=== PATIENT | male | born 1940 | race Caucasian/White ===

== ENCOUNTER 2017-01-21 10:48 | Outpatient (CLI) | payer MEDICARE, OTHER ==
[~2017-01-21] VITALS: Ht 177.8 cm; Wt 66.9 kg
[~2017-01-21 10:48] MED LIST: CIPR500T78 PO; CYCL10TA9 PO; FINA5TAB6 PO; HYDR-2997 PO; LORA5TAB9 PO; NAPR-243 PO; OXYC-12 PO; TAMS0.4C2 PO; TMSL.4C PO; TRIA10.8 NSEACH
[2017-01-21 11:07] VITALS: BP 185/99
[2017-01-21 11:50] LABS: BASOPHILS % (AUTO) 1 % (0-10); EOSINOPHILS % (AUTO) 1 % (0-10); LYMPHOCYTES # (AUTO) 0.7 X 10^3 (1.0-4.0); LYMPHOCYTES % (AUTO) 16 % (12-44); MEAN CORPUSCULAR HEMOGLOBIN 33 PG (25-34); MEAN CORPUSCULAR HGB CONC 34 G/DL (32-36); MEAN CORPUSCULAR VOLUME 97 FL (80-99); MEAN PLATELET VOLUME 10.3 FL (7.4-10.4); MONOCYTES # (AUTO) 0.4 X 10^3 (0.0-1.0); MONOCYTES % (AUTO) 8 % (0-12); NEUTROPHILS # (AUTO) 3.3 X 10^3 (1.8-7.8); NEUTROPHILS % (AUTO) 75 % (42-75); PLATELET COUNT 153 10^3/uL (130-400); RED BLOOD COUNT 4.16 10^6/uL (4.35-5.85); RED CELL DISTRIBUTION WIDTH 12.6 % (10.0-14.5); WHITE BLOOD COUNT 4.4 10^3/uL (4.3-11.0)
== END 2017-01-21 11:44 | disposition home or self-care (01) ==
LOC: PREOP 10:48
PROVIDERS: ATTEND Urology
DX: Z01.812 Encounter for preprocedural laboratory examination (principal); N40.1 Benign prostatic hyperplasia with lower urinary tract symptoms; R33.8 Other retention of urine
CPT/HCPCS: 36415; 85025; 86850; 86900; 86901; 87081

== ENCOUNTER 2017-01-25 07:30 | Day surgery (SDC) | payer MEDICARE, OTHER ==
[~2017-01-25] VITALS: Ht 177.8 cm; Wt 66.9 kg
[2017-01-25 07:30] VITALS: BP 194/95
[2017-01-25] MEDS ORDERED: CATHETER FLUSH 10 ML SYR IV PRN (07:45)
[2017-01-25] MEDS ORDERED: cefTRIAXone 1 GM/NS 50 ML IVPB IV ONE ×2 (07:45)
[2017-01-25] MEDS ORDERED: FINA5TAB6 PO (08:19)
[2017-01-25] MEDS ORDERED: TAMS0.4C2 PO (08:21)
[2017-01-25] MEDS ORDERED: OXYC-471 PO (08:21)
[2017-01-25] MEDS ORDERED: FLUT9.9S NS (08:23)
[2017-01-25] MEDS ORDERED: METH2.5T PO (08:23)
[2017-01-25] MEDS ORDERED: FOLI0.8C PO (08:24)
[2017-01-25] MEDS ORDERED: MULT-35 PO (08:24)
--- NOTE | 2017-01-25 08:32 | Progress Note-Pre Operative ---
Pre-Operative Progress Note H&P Reviewed The H&P was reviewed, patient examined and no changes noted. Date Seen by Provider: Jan 25, 2017 Time Seen by Provider: 08:32 Date H&P Reviewed: Jan 25, 2017 Time H&P Reviewed: 08:32 Pre-Operative Diagnosis: BPH WITH URINE RETENTION JENSEN CHANCE MD Jan 25, 2017 8:32 am
[2017-01-25] MEDS: LACTATED RINGERS 1,000 ML IV PRN ×2 (08:45→10:15)
[2017-01-25] MEDS ORDERED: NS IV 1000 ML 1,000 ML IV SCH (09:00)
[2017-01-25] MEDS ORDERED: proPOfol 200 MG/20 ML (DIPRIVAN) VIAL IV ONE (09:40)
[2017-01-25] MEDS ORDERED: fentaNYL INJECTION 100 MCG/2 ML AMP ONE (09:40)
--- NOTE | 2017-01-25 11:09 | Progress Note-Post Operative ---
Post-Operative Progess Note Surgeon (s)/Reception Specialist (s) Surgeon JENSEN CHANCE MD Reception Specialist: N/A Pre-Operative Diagnosis BPH WITH URINE RETENTION Post-Operative Diagnosis SAME Procedure & Operative Findings Date of Procedure 01/25/17 Procedure Performed/Findings TURP Anesthesia Type SPINAL Estimated Blood Loss Estimated blood loss (mL): 100cc Specimens/Packing Specimens Removed PROSTATE CHIPS Packing: N/A JENSEN CHANCE MD Jan 25, 2017 11:09 am
[2017-01-25] MEDS ORDERED: ZOLPIDEM 5 MG (AMBIEN) TAB PO PRN (11:15)
[2017-01-25] MEDS ORDERED: MILK OF MAGNESIA 400 MG/5 ML 30 ML UDC PO PRN (11:15)
[2017-01-25] MEDS ORDERED: ONDANSETRON 4 MG/2 ML (SDV) Z0FRAN IVP PRN (11:30)
[2017-01-25] MEDS ORDERED: morphine INJ 10 MG/ML 1ML (SYR OR VIAL) IVP PRN (11:30)
[2017-01-25 12:20] VITALS: BP 180/87
[2017-01-25] MEDS ORDERED: VITA400C21 PO (14:11)
[2017-01-25] MEDS ORDERED: CYAN500T2 PO (14:11)
[2017-01-25] MEDS ORDERED: GINK60TA2 PO (14:11)
[2017-01-25] MEDS ORDERED: ASCO-262 PO (14:11)
[2017-01-25] MEDS ORDERED: CARB1TAB6 PO (14:11)
[2017-01-25] MEDS ORDERED: SAW160CA3 PO (14:11)
[2017-01-25] MEDS ORDERED: CHOL10007 PO (14:11)
[2017-01-25] MEDS ORDERED: MAGN250T2 PO (14:11)
[2017-01-25] MEDS ORDERED: OMEG-160 PO (14:11)
[2017-01-25] MEDS ORDERED: INFLUENZA TRIvalent 2017-2018 0.5 ML/45 MCG SYR IM ONE (14:45)
[2017-01-25] MEDS: LACTATED RINGERS 1,000 ML IV SCH ×4 (15:06→23:47)
[2017-01-25 15:50] VITALS: BP 113/57
[2017-01-25] MEDS: BELLADONNA ALK/OPIUM (B & O) 30 MG SUPP PR PRN (18:49)
[2017-01-25] MEDS: DOCUSATE SODIUM 100 MG (COLACE) CAP PO SCH (20:12)
[2017-01-25 20:21] VITALS: BP 126/70
[2017-01-25] MEDS: HYDROcodone/APAP 10 MG/325 MG (LORTAB) TAB PO PRN (21:20)
[2017-01-26 00:08] VITALS: BP 135/63
[2017-01-26] MEDS: BELLADONNA ALK/OPIUM (B & O) 30 MG SUPP PR PRN (00:44)
[2017-01-26 04:22] VITALS: BP 116/56
--- NOTE | 2017-01-26 07:29 | Progress Note-Urology ---
Progress Note-Urology Progress Notes/Assess & Plan Progress/Assessment & Plan AFEBRILE, VSS, DOING VERY WELL, URINE CLEAR. PLAN PER ORDERS Final Diagnosis BPH WITH RETENTION JENSEN CHANCE MD Jan 26, 2017 7:29 am
[2017-01-26 07:35] VITALS: BP 155/67
[2017-01-26] MEDS: HYDROcodone/APAP 10 MG/325 MG (LORTAB) TAB PO PRN (08:55)
[2017-01-26] MEDS: DOCUSATE SODIUM 100 MG (COLACE) CAP PO SCH (08:55)
[2017-01-26] MEDS ORDERED: LEVOFLOXACIN 500 MG/100 ML IV 100 ML IV NR (11:15)
[2017-01-26] MEDS: LACTATED RINGERS 1,000 ML IV SCH ×2 (11:28)
--- NOTE | 2017-01-26 11:57 | OPERATIVE REPORT ---
DATE OF SERVICE: 01/25/2017 [employer]1 PREOPERATIVE DIAGNOSIS: Benign prostatic hypertrophy with prostatism and retention. POSTOPERATIVE DIAGNOSIS: Benign prostatic hypertrophy with prostatism and retention. OPERATION PERFORMED: Transurethral resection of the prostate. SURGEON: MD Christal ANESTHESIA: Spinal. COMPLICATIONS: None. PROCEDURE IN DETAIL: Under satisfactory spinal anesthesia, the patient in the lithotomy position, genitalia were prepped and draped in the usual sterile fashion. Urethra was dilated with [place] sounds to #30 Guinean to accommodate a 27-Guine[place] Kompyte. resectoscope. I resected first the median lobe-bar and was levelled. Then, I resected the right lateral lobe from 12 to 6 o'clock position followed by the left one similarly. Bleeders were cauterized as the resection was proceeding and capsule was visualized in many points. The resection was adequate and hemostasis satisfactory. Prostatic chips were evacuated and cystoscopy confirmed intact ureteric orifices, veru and sphincter with good reflex. Resectoscope was then removed and a 22-Guinean 3 ways 30 mL Balloon catheter was inserted. The balloon inflated to 30 mL, connected to continuous bladder irrigation, the return of which was clear. Estimated blood loss is 100 mL, none of which was replaced. The patient tolerated the procedure and anesthesia well and was sent to the recovery room in stable condition. Job ID: [id number] DocumentID: [id number] Dictated Date: 01/25/2017 11:33:36 Director Ambulatory Date: 01/26/2017 03:02:31 Dictated By: JENSEN CHANCE MD
--- NOTE | 2017-01-26 14:04 | Anesthesia-Regional Post-Op ---
Regional Patient Condition Mental Status: Alert, Oriented x3 Circulation: Same as Pre-Op Headache: Absent Sensation: Full Recovery Motor Block: Absent Post Op Complications Complications None Follow Up Care/Instructions Patient Instructions None needed. Anesthesia/Patient Condition Patient is doing well, no complaints, stable vital signs, no apparent adverse anesthesia problems. No complications reported per nursing. CRISTOBAL RUIZ CRNA Jan 26, 2017 14:04
[2017-01-26] MEDS ORDERED: CIPR-225 PO (15:00)
[2017-01-26 15:57] VITALS: BP 155/67
== END 2017-01-26 16:00 | disposition home or self-care (01) ==
LOC: SDC 07:30 → 4TH 12:23 → SDC 01-26 16:00
PROVIDERS: ATTEND Urology
DX: N40.1 Benign prostatic hyperplasia with lower urinary tract symptoms; R33.8 Other retention of urine; Z79.899 Other long term (current) drug therapy; M06.9 Rheumatoid arthritis, unspecified
CPT/HCPCS: 86850; 86900; 86901; 94664

== ENCOUNTER 2017-02-03 09:05 | Inpatient (IN) | payer MEDICARE, OTHER ==
[~2017-02-03] VITALS: Ht 175.3 cm; Wt 66.7 kg
[~2017-02-03 09:05] MED LIST changes: +ASCO-262 PO; +CARB1TAB6 PO; +CHOL10007 PO; +CIPR-225 PO; +CIPR500T4 PO; +CYAN500T2 PO; +FLUT9.9S NS; +FOLI0.8C PO; +GINK60TA2 PO; +MAGN250T2 PO; +METH2.5T PO; +MULT-35 PO; +OMEG-160 PO; +OXYC-471 PO; +SAW160CA3 PO; +VITA400C21 PO
[2017-02-03] MEDS ORDERED: ASPI-999 PO (09:13)
[2017-02-03] MEDS ORDERED: ATOR40TA PO (09:13)
--- NOTE | 2017-02-03 11:46 | Occupational Therapy Eval ---
OT Evaluation-General/PLF Medical Diagnosis Admission Date 02-03-17 Medical Diagnosis: R cerebellar CVA Onset Date: Jan 31, 2017 Therapy Diagnosis Therapy Diagnosis: decr self care, decr funct mobility, decr act delmy, decr balance Height/Weight Height (Feet): 5 Height (Inches): 9.00 Weight (Pounds): 141 Weight (Ounces): 14.4 Referral Physician: Jaden Referral Reason: Evaluation/Treatment Medical History Pertinent Medical History: Arthritis, COPD, CVA, GERD, Parkinson's Additional Medical History TURP 01-14-17, L inguinal hernia. R cataract surgery, chronic constipation, chronic back pain, depression Current History Came in to acute care through ED with dizziness, had n/v. Identified with acute CVA affecting R cerebellum. Reviewed History: Yes Social History Home: Single Level Current Living Status: Spouse Entry Into Home: Stairs With Railing Steps Into Home: 3 ADL-Prior Level of Function ADL PLOF Comments Pt reported that he has been able to manage his basic self care needs except that buttoning shirts is hard and takes a long time and sometimes he has trouble getting shirts over his head. He said that the tremors in his hands do not affect his ability to feed himself. 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 Pain reported 0/10. Appearance Alert, cooperative Mental Status/Objective Attachments: Saline Lock, Telemetry Current Glasses/Contacts: Yes (readers) Hearing Aids: No Dentures/Partials: Yes (partial) Hand Dominance: Right Upper Extremity ROM grossly WFL bilat. He reported R biceps has "fallen" and is observed more distal on upper arm. Upper Extremity Strength Grossly 4/5 bilat ADL-Treatment ADL-Current Pt reported that he needs help holding up his hospital gown when he uses urinal. Pt agreeable to shower after lunch. Functional [place] Measure 0=Not Assessed/NA 4=Minimal Assistance 1=Total Assistance 5=Supervision or Setup 2=Maximal Assistance 6=Modified [place] 3=Moderate Assistance 7=Complete IndependenceIRFPAI Quality Coding Scale 6 Independent with activity with or without an assistive device 5 Patient requires set up or clean up by helper. Patient completes activity by themselves 4 Supervision or touching assist (CGA). [place] provide cues , steadying assist 3 The helper provides less than half the effort to complete the activity 2 The helper provides more than half the effort to complete the activity 1 Dependent. The helper does all the effort to complete an activity 7 Patient refused to complete or attempt activity 9 The patient did not perform the activity before the current illness or injury 88 Not attempted due to Medical conditions or safety concerns Transfers (B, C, W/C) (FIM): 4 (CGA, FWW. Unsteadiness observed when backing up to get into w/c.) Education OT Patient Education: Purpose of tx/functional activities, Rehab process Teaching Recipient: Patient Teaching Methods: Discussion Response to Teaching: Verbalize Understanding OT Short Term Goals Short Term Goals Time Frame: Feb 10, 2017 Toilet/Commode Transfer(FIM): 5 Additional Short Term Goals: 2-Verbalize Understanding, 3-ImproveStrength/Sheila 1=Demonstrate adherence to instructed precautions during ADL tasks. 2=Patient will verbalize/demonstrate understanding of assistive devices/ modifications for ADL. 3=Patient will improve strength/tolerance for activity to enable patient to perform ADL's. OT Temperature Logging Operator Goals Retirement Goals Time Frame: Feb 25, 2017 Eating (FIM): 6 Eating (QC): 6 Groomin Oral Hygiene (QC): 6 Bathing(FIM): 6 Shower/Bathe Self (QC): 6 Upper Body Dressing(FIM): 6 Upper Body Dressing (QC): 6 Lower Body Dressing(FIM): 6 Lower Body Dressing (QC): 6 On/Off Footwear (QC): 6 Toileting(FIM): 6 Toileting Hygiene (QC): 6 Toilet/Commode Transfer(FIM): 6 Toilet/Commode Transfer (QC): 6 Tub Transfer(FIM): 6 Shower Transfer(FIM): 6 Additional Goals: 2-Verbalize Understanding, 3-ImproveStrength/Sheila 1=Demonstrate adherence to instructed precautions during ADL tasks. 2=Patient will verbalize/demonstrate understanding of assistive devices/ modifications for ADL. 3=Patient will improve strength/tolerance for activity to enable patient to perform ADL's. OT Education/Plan Problem List/Assessment Assessment: Decreased Activ Tolerance, Decreased UE Strength, Dependent Transfers, Impaired Funct Balance, Impaired Self-Care Skills Pt would benefit from skilled OT to increase his independence in basic self care to allow him to safely return home to live with his and to decrease caregiver burden 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 Discharge Recommendations Plan/Recommendations: Continue POC Target Placement home Treatment Plan/Plan of Care Treatment,Training & Education: Yes Patient would benefit from OT for education, treatment and training to promote independence in ADL's, mobility, safety and/or upper extremity function for ADL' s. Plan of Care: ADL Retraining, Functional Mobility, Group Exercise/Act as Ind ( education, exercise, socialization, activity tolerance, funct activities), UE Funct Exercise/Act, UE Neuromus Re-Ed/Coord Treatment Duration: Feb 25, 2017 Frequency: At least 5 of 7 days/Wk (IRF) Estimated Hrs Per Day: 1.5 hours per day Agreement: Yes Rehab Potential: Good Time/GCodes Start Time: 11:00 Stop Time: 11:30 Total Time Billed (hr/min): 30 Billed Treatment Time visit, 30 minutes evaluation moderate intensity SHIVAM NAVA OT Feb 03, 2017 11:46
--- NOTE | 2017-02-03 12:09 | Physical Therapy Evaluation ---
PT Evaluation-General Medical Diagnosis Admission Date Medical Diagnosis: R cerebellar CVA Onset Date: Jan 31, 2017 Therapy Diagnosis Therapy Diagnosis: generalized weakness and mobility impairments Height/Weight Height (Feet): 5 Height (Inches): 9.00 Weight (Pounds): 141 Weight (Ounces): 14.4 Precautions Precautions/Isolations: Fall Prevention, Standard Precautions Referral Physician: Jaden Reason for Referral: Evaluation/Treatment Medical History Pertinent Medical History: Arthritis, COPD, CVA, GERD, Parkinson's Additional Medical History Parkinson's, UTI, RA, Depression, Gastroesophageal Reflux, Chronic Constipation , Chronic back pain, Surgeries: Eye Surgery, Tonsillectomy, Transurethral Resection, TURP 01/14. Current History Pt presented to the ER 02/02 with CC of nausea, vomiting, and dizziness, found to have acute cerebellar infarct. Reviewed History: Yes Social History Home: Single Level Current Living Status: Spouse Entry Into Home: Stairs With Railing PT Steps Into Home: 3 Prior/Core FIM Prior Level of Function Functional [place] Measure 0=Not Assessed/NA 4=Minimal Assistance 1=Total Assistance 5=Supervision or Setup 2=Maximal Assistance 6=Modified [place] 3=Moderate Assistance 7=Complete [place] Bed Mobility: 7 Transfers (B,C,W/C) (FIM): 7 Gait: 7 Locomotion: 7 Patient reports he used no assistive device prior to admission and was driving. PT Evaluation-Current Subjective Pt is sitting in wheelchair (just finished with OT) and agreeable to PT. Pt reports no pain. Pt was sitting at EOB with nurse call, phone, tray, all needs met post tx. Pain Numeric Pain Scale: 0-No Pain Location: No Pain Reported Pt/Family Goals to return home with independence with mobility Objective Patient Orientation: Person, Place, Situation telemetry ROM/Strength ROM Lower Extremities WNL Strenght Lower Extremities right ankle df 4+/5, knee flexion 3+/5, knee extension 4/5, hip flexion 4-/5 left ankle df 4+/5, knee flexion 3+/5, knee extension 4/5, hip flexion 4-/5 Integumentary/Posture Integumentary refer to nursing note Bowel Incontinence: No Bladder Incontinence: No Neuromuscular (Tone, Coordination, Reflexes) noted essential tremors bilateral UE's R>L, parkinson's shuffle gait sequence Sensory Vision: Functional (patient reports having double vision yesterday, no issues with vision today) Hearing: Functional Hand Dominance: Right Sensation Right Upper Extremit: Intact Sensation Left Upper Extremity: Intact Sensation Right Lower Extremit: Intact Sensation Left Lower Extremity: Intact Transfers Functional [place] Measure 0=Not Assessed/NA 4=Minimal Assistance 1=Total Assistance 5=Supervision or Setup 2=Maximal Assistance 6=Modified [place] 3=Moderate Assistance 7=Complete IndependenceIRFPAI Quality Coding Scale 6 Independent with activity with or without an assistive device 5 Patient requires set up or clean up by helper. Patient completes activity by themselves 4 Supervision or touching assist (CGA). [place] provide cues , steadying assist 3 The helper provides less than half the effort to complete the activity 2 The helper provides more than half the effort to complete the activity 1 Dependent. The helper does all the effort to complete an activity 7 Patient refused to complete or attempt activity 9 The patient did not perform the activity before the current illness or injury 88 Not attempted due to Medical conditions or safety concerns Transfers (B, C, W/C) (FIM): 5 Scootin Rollin Roll Left to Right (QC): 4 Supine to/from Sit: 5 Sit to/from Stand: 5 Sit to Lying (QC): 4 Lying to Sitting/Side of Bed(Q: 4 Sit to Stand (QC): 4 Chair/Imp-nd-Sdmnn Xfer(QC): 4 Pt was able to completes all bed mobility and transfers with supervision for safety. Gait Does the Patient Walk?: Yes Mode of Locomotion: Walk Anticipated Mode of Locomotion: Walk Gait (FIM): 2 Distance (FIM): 7=954-63 ft Walk 10 feet (QC): 4 Walk 50 ft with 2 Turns(QC): 4 Walk 150 ft (QC): 88 Walking 10ft/uneven surface-QC: 4 Distance: 125'x2 Gait Level of Assist: 4 Gait Persons Needed: 1 Gait Assistive Device: FWW Comments/Gait Description Pt ambulates 125'x2 with FWW and CGA for safety. Patient has shuffling with gait , does not have difficulty initiating movement or corners at this time. Wheelchair Training Does the Pt Use a Wheelchair?: No Stairs Stairs (FIM): 2 #of Steps: 4 Level of Assist: 4 1 Step (curb) (QC): 4 4 Steps (QC): 4 12 Steps (QC): 88 Pt is able to complete 4 stairs with step to pattern and 2 handrails. Pt requires CGA and verbal cues for safety. Balance Sitting Static: Good Sitting Dynamic: Fair Standing Static: Fair Standing Dynamic: Poor Picking up an Object (QC): 88 Assessment/Needs Pt has impairments with gait, endurance, balance, activity tolerance, and strength. Pt reports feeling light-headed after walking 125', which subsided with rest break. Rehab Potential: Fair PT Short Term Goals Short Term Goals Time Frame: Feb 10, 2017 Transfers (B,C,W/C) (FIM): 6 Gait (FIM): 4 Gait Distance Comment: 200' Gait Level of Assist: 4 Gait Assistive Device: FWW PT Residential Goals Furnace Repairer Goals PT Residential Goals Time Frame: Feb 24, 2017 Transfers (B,C,W/C) (FIM): 7 Sit to Lying (QC): 6 Lying-Sitting on Side/Bed(QC): 6 Sit to Stand (QC): 6 Rollin Roll Left to Right (QC): 6 Chair/Uwg-jd-Dybvf Xfer(QC): 6 Car Transfer (QC): 4 (SBA) Does the Patient Walk: No and Walking Goal IS indicated Gait (FIM): 6 Gait distance (FIM): 3=150 ft Walk 10 feet (QC): 6 Walk 10ft-Uneven Surface(QC): 6 Walk 50ft with 2 Turns (QC): 6 Walk 150 ft (QC): 6 Gait Level of Assist: 6 Gait Assistive Device: FWW Stairs (FIM): 5 # of Steps: 12 1 Step (curb) (QC): 4 4 Steps (QC): 4 12 Steps (QC): 4 Stairs Level Of Assist: 5 Picking up an Object (QC): 4 PT Plan Problem List Problem List: Activity Tolerance, Functional Strength, Safety, Balance, Gait, Transfer, Bed Mobility, ROM Treatment/Plan Treatment Plan: Continue Plan of Care Treatment Plan: Bed Mobility, Education, Functional Activity Sheila, Functional Strength, Group Therapy, Gait, Safety, Therapeutic Exercise, Transfers Treatment Duration: Feb 24, 2017 Frequency: At least 5 of 7 days/Wk (IRF) Estimated Hrs Per Day: 1.5 hours per day Patient and/or Family Agrees t: Yes Safety Risks/Education Patient Education: Gait Training, Transfer Techniques, Steps, Reviewed Precautions, Correct Positioning, Safety Issues Teaching Recipient: Patient Teaching Methods: Demonstration, Discussion Response to Teaching: Verbalize Understanding, Reinforcement Needed Discharge Recommendations Plan Pt will complete gait training, transfers and bed mobility, balance and endurance training, strengthening and therapeutic exercises, and receive safety education. Therapy D/C Recommendations: Home w/ Family Support Time/GCodes Time In: 1130 Time Out: 1201 Total Billed Treatment Time: 31 Total Billed Treatment 1 visit GER 16 GT 15 YNES BINGHAM PT Feb 03, 2017 12:09
[2017-02-03] MEDS ORDERED: MECLIZINE 25 MG (ANTIVERT) TAB PO PRN (14:00)
[2017-02-03] MEDS ORDERED: ONDANSETRON 4 MG/2 ML (SDV) Z0FRAN IVP PRN (14:00)
[2017-02-03] MEDS ORDERED: PROMETHAZINE INJ 25 MG/ML (PHENERGAN) AMP IVP PRN (14:00)
[2017-02-03] MEDS ORDERED: CATHETER FLUSH 10 ML SYR IV PRN ×2 (14:00→15:00)
[2017-02-03] MEDS ORDERED: oxyCODONE/APAP 5/325MG (PERCOCET 5) TABLET PO PRN (14:00)
[2017-02-03] MEDS ORDERED: cefTRIAXone INJECTION 1,000 MG in NS (IVPB) 50 ML IV SCH (14:00)
[2017-02-03] MEDS ORDERED: ACETAMINOPHEN 500 MG TAB (TYLENOL) PO PRN (14:00)
--- NOTE | 2017-02-03 14:24 | Occupational Ther Daily Note ---
OT Current Status-Daily Note Subjective Pt seen in room, up in bed, agreeable to OT. No pain mentioned. Appearance Alert, cooperative, flat affect, delayed movements Mental Status/Objective Functional [place] Measure 0=Not Assessed/NA 4=Minimal Assistance 1=Total Assistance 5=Supervision or Setup 2=Maximal Assistance 6=Modified [place] 3=Moderate Assistance 7=Complete [place] ADL-Treatment Functional [place] Measure 0=Not Assessed/NA 4=Minimal Assistance 1=Total Assistance 5=Supervision or Setup 2=Maximal Assistance 6=Modified [place] 3=Moderate Assistance 7=Complete IndependenceIRFPAI Quality Coding Scale 6 Independent with activity with or without an assistive device 5 Patient requires set up or clean up by helper. Patient completes activity by themselves 4 Supervision or touching assist (CGA). [place] provide cues , steadying assist 3 The helper provides less than half the effort to complete the activity 2 The helper provides more than half the effort to complete the activity 1 Dependent. The helper does all the effort to complete an activity 7 Patient refused to complete or attempt activity 9 The patient did not perform the activity before the current illness or injury 88 Not attempted due to Medical conditions or safety concerns Eating (FIM): 6 (Per pt report, opens packages and cuts food. Has partial and doesn't eat some foods without partial in place.) Eating (QC): 6 Grooming (FIM): 5 (SBA standing at sink to brush teeth and comb hair, FWW for balance. pt reported that he has some trouble moving toothbrush but none observed) Oral Hygiene (QC): 4 (SBA) Bathing (FIM): 5 (Washed and dried all parts except back with setup, SBA when standing. Shower bench, grab bars, hand held shower) Shower/Bathe Self (QC): 4 (SBA) Upper Body (FIM): 5 (pt educ modified technique for donning shirt. SBA, setup. Able to manage buttons but slowly) Upper Body Dressing (QC): 4 (SBA) Lower Body Dressing (FIM): 5 (SBA, setup to don slippers, underwear and sweat pants. pt educ modified technique. FWW for balance) Lower Body Dressing (QC): 4 (SBA) On/Off Footwear (QC): 5 (setup) Toileting (FIM): 5 (SBA for standing to manage clothing. Able to manage hygiene. Tall toilet, grab bar, FWWW) Toileting Hygiene (QC): 4 (SBA) Transfers (B, C, W/C) (FIM): 4 (CGA, FWW. pt educ for hand placement) Toilet/Commode Transfer (FIM): 5 (SBA, getting on/off tall toilet, grab bars, FWW. pt educ for hand placement) Toilet Transfer (QC): 4 (SBA) Shower Transfer(FIM): 5 (SBA getting in and out of shower, with shower bench, grab bar, FWW) All ADLs took longer than usual. Pt movements slow and deliberate. Pt left up in recliner, all needs met. Education OT Patient Education: Modified ADL techniques, Progress toward Goal/Update tx plan, Purpose of tx/functional activities, Safety issues, Transfer techniques Teaching Recipient: Patient Teaching Methods: Demonstration, Discussion Response to Teaching: Verbalize Understanding, Return Demonstration, Reinforcement Needed OT Short Term Goals Short Term Goals Time Frame: Feb 10, 2017 Transfers (B,C,W/C) (FIM): 6 Toilet/Commode Transfer(FIM): 5 Additional Short Term Goals: 2-Verbalize Understanding, 3-ImproveStrength/Sheila 1=Demonstrate adherence to instructed precautions during ADL tasks. 2=Patient will verbalize/demonstrate understanding of assistive devices/ modifications for ADL. 3=Patient will improve strength/tolerance for activity to enable patient to perform ADL's. OT Enterprise Integration Developer Goals Mcc Goals Time Frame: Feb 25, 2017 Eating (FIM): 6 Eating (QC): 6 Groomin Oral Hygiene (QC): 6 Bathing(FIM): 6 Shower/Bathe Self (QC): 6 Upper Body Dressing(FIM): 6 Upper Body Dressing (QC): 6 Lower Body Dressing(FIM): 6 Lower Body Dressing (QC): 6 On/Off Footwear (QC): 6 Toileting(FIM): 6 Toileting Hygiene (QC): 6 Toilet/Commode Transfer(FIM): 6 Toilet/Commode Transfer (QC): 6 Tub Transfer(FIM): 6 Shower Transfer(FIM): 6 Additional Goals: 2-Verbalize Understanding, 3-ImproveStrength/Sheila 1=Demonstrate adherence to instructed precautions during ADL tasks. 2=Patient will verbalize/demonstrate understanding of assistive devices/ modifications for ADL. 3=Patient will improve strength/tolerance for activity to enable patient to perform ADL's. 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 Plan of Care: ADL Retraining, Functional Mobility, Group Exercise/Act as Ind ( education, exercise, socialization, activity tolerance, funct activities), UE Funct Exercise/Act, UE Neuromus Re-Ed/Coord Treatment Duration: Feb 25, 2017 Frequency: At least 5 of 7 days/Wk (IRF) Estimated Hrs Per Day: 1.5 hours per day Agreement: Yes Rehab Potential: Fair Time/GCodes Start Time: 13:00 Stop Time: 14:05 Total Time Billed (hr/min): 65 Billed Treatment Time visit, 65 minutes ADL SHIVAM NAVA OT Feb 03, 2017 14:24
--- NOTE | 2017-02-03 15:33 | Physical Therapy Daily Note ---
PT Daily Note-Current Subjective Pt is sitting in chair prior to tx and agreeable to PT. Pt reports no pain. Pt is on toilet post tx, instructed to use red cord to call for help when finished and patient is agreeable. Pain Numeric Pain Scale: 0-No Pain Location: No Pain Reported Mental Status Patient Orientation: Normal For Age Transfers Functional [place] Measure 0=Not Assessed/NA 4=Minimal Assistance 1=Total Assistance 5=Supervision or Setup 2=Maximal Assistance 6=Modified [place] 3=Moderate Assistance 7=Complete IndependenceIRFPAI Quality Coding Scale 6 Independent with activity with or without an assistive device 5 Patient requires set up or clean up by helper. Patient completes activity by themselves 4 Supervision or touching assist (CGA). [place] provide cues , steadying assist 3 The helper provides less than half the effort to complete the activity 2 The helper provides more than half the effort to complete the activity 1 Dependent. The helper does all the effort to complete an activity 7 Patient refused to complete or attempt activity 9 The patient did not perform the activity before the current illness or injury 88 Not attempted due to Medical conditions or safety concerns Transfers (B, C, W/C) (FIM): 5 Sit to/from Stand: 5 Gait Training Does the Patient Walk?: Yes Gait (FIM): 4 Distance: 150'x2 Gait Level of Assist: 4 Gait Persons Needed: 1 Gait Assistive Device: FWW Pt ambulates with FWW and CGA for safety. Pt has difficulty initiating movement and shuffling gait. Stair Training Stair Training: Handrails/: 2 handrails #of Steps: 8 Stairs: Pattern: Step to Level of Assist: 4 Pt completes 8 steps with 2 handrails, step to pattern and close CGA for safety. Exercises Seated Therapy Exercises: Ankle pumps, Long arc quads, Hip flexion, Hip abd/add , Glut set Seated Reps: 15 NuStep Minutes: 15 NuStep Workload: 6 Treatments Pt completes LE seated exercises and tx on Nustep to increase functional strengthening and endurance. Pt completes dynamic standing balance activities ( unilateral stance, stepping over obstacles, reaching for objects, navigating obstacles on floor, gait training with emphasis on turning) to increase balance and gait. Assessment Current Status: Good Progress Pt ambulation distance has increased. Pt is highly motivated to improve balance. PT Short Term Goals Short Term Goals Time Frame: Feb 10, 2017 Transfers (B,C,W/C) (FIM): 6 Gait (FIM): 4 Gait Distance Comment: 200' Gait Level of Assist: 4 Gait Assistive Device: FWW PT Road Design Engineer Goals Chcf Goals PT Chcf Goals Time Frame: Feb 24, 2017 Transfers (B,C,W/C) (FIM): 7 Sit to Lying (QC): 6 Lying-Sitting on Side/Bed(QC): 6 Sit to Stand (QC): 6 Rollin Roll Left to Right (QC): 6 Chair/Tyo-ro-Ywkpw Xfer(QC): 6 Car Transfer (QC): 4 (SBA) Does the Patient Walk: No and Walking Goal IS indicated Gait (FIM): 6 Gait distance (FIM): 3=150 ft Walk 10 feet (QC): 6 Walk 10ft-Uneven Surface(QC): 6 Walk 50ft with 2 Turns (QC): 6 Walk 150 ft (QC): 6 Gait Level of Assist: 6 Gait Assistive Device: FWW Stairs (FIM): 5 # of Steps: 12 1 Step (curb) (QC): 4 4 Steps (QC): 4 12 Steps (QC): 4 Stairs Level Of Assist: 5 Picking up an Object (QC): 4 PT Plan Problem List Problem List: Activity Tolerance, Functional Strength, Safety, Balance, Gait, Transfer, Bed Mobility, ROM Treatment/Plan Treatment Plan: Continue Plan of Care Treatment Plan: Bed Mobility, Education, Functional Activity Sheila, Functional Strength, Group Therapy, Gait, Safety, Therapeutic Exercise, Transfers Treatment Duration: Feb 24, 2017 Frequency: At least 5 of 7 days/Wk (IRF) Estimated Hrs Per Day: 1.5 hours per day Patient and/or Family Agrees t: Yes Safety Risks/Education Patient Education: Gait Training, Transfer Techniques, Steps, Reviewed Precautions, Correct Positioning, Safety Issues Teaching Recipient: Patient Teaching Methods: Demonstration, Discussion Response to Teaching: Verbalize Understanding, Reinforcement Needed Time/GCodes Time In: 1431 Time Out: 1530 Total Billed Treatment Time: 59 Total Billed Treatment 1 visit 15 EX 15 GT 29 NM BHUMI MACIAS PT Feb 03, 2017 15:33
[2017-02-03 15:40] VITALS: BP 176/88
[2017-02-03] MEDS ORDERED: INFLUENZA TRIvalent 2017-2018 0.5 ML/45 MCG SYR IM ONE (15:45)
[2017-02-03] MEDS: ENOXAPARIN 40 MG/0.4 ML (LOVENOX) SYR SC SCH (16:02)
[2017-02-03] MEDS: FOLIC ACID 1 MG TAB PO SCH (17:42)
[2017-02-03 18:51] VITALS: BP 167/87
--- NOTE | 2017-02-03 19:24 | History & Physicial ---
History of Present Illness History of Present Illness Reason for visit/HPI patient had a TURP on . Patient doing okay after that. Next Tuesday patient had a stroke. Patient feels woozy. According to patient has Parkinson disease. Patient shuffles when he walks and movement with his hands and cogwheel motion of this elbow and a frozen face. Patient states his balance is off Date of Admission Feb 03, 2017 at 11:35 Time Seen by Provider: 19:20 I consulted on this patient on 02/03/17 19:19 Attending Physician Yordan Stanley MD Admitting Physician Felix Dinero DO Consult Allergies and Home Medications Allergies Coded Allergies: No Known Drug Allergies (Unverified , 01/21/17) Home Medications Ascorbate Calcium 500 Mg Tablet, 500 MG PO DAILY, (Reported) Aspirin 81 Mg Tab.chew, 81 MG PO DAILY, #30 Prescribed by: YEN GUERIN on 02/03/17 0913 Atorvastatin Calcium 40 Mg Tablet, 40 MG PO HS, #30 Prescribed by: YEN GUERIN on 02/03/17 0913 Carbidopa/Levodopa 1 Each Tablet, 1 TAB PO TID, (Reported) HAS NOT YET STARTED Cholecalciferol (Vitamin D3) 1,000 Unit Capsule, 1,000 UNIT PO DAILY, (Reported) Cyanocobalamin (Vitamin B-12) 500 Mcg Tablet, 500 MCG PO DAILY, (Reported) Fluticasone Propionate 9.9 Ml [place].susp, 1 SPRAY NS DAILY, (Reported) Folic Acid 0.8 Mg Capsule, 1.6 MG PO DAILY, (Reported) TAKES 2 (0.8 MG) CAPSULES Ginkgo Biloba 60 Mg Tablet, 60 MG PO DAILY, (Reported) Magnesium 250 Mg Tablet, 250 MG PO BID, (Reported) Methotrexate Sodium 2.5 Mg Tablet, 7.5 MG PO Mo, (Reported) Multivitamin 1 Each Tablet, 1 TAB PO DAILY, (Reported) Crystal-3/Dha/Epa/Fish Oil 1 Each Capsule, 1,000 MG PO BID, (Reported) Oxycodone HCl/Acetaminophen 1 Each Tablet, 1 TAB PO PRN PRN for PAIN-MODERATE, ( Reported) Saw [place] 160 Mg Capsule, 160 MG PO BID, (Reported) Vitamin E 400 Unit Capsule, 400 UNIT PO DAILY, (Reported) Past Hnyzqxz-Iqodzv-Mwbkge Hx Patient Social History Marrital Status: Alcohol Use: Denies Use Recreational Drug Use: No Smoking Status: Never a Smoker Physical Abuse Screen: No Sexual Abuse: No Recent Foreign Travel: No Contact w/other who traveled: No Recent Hopitalizations: No Recent Infectious Disease Expo: No Immunizations Up To Date Date of Influenza Vaccine: Feb 01, 2017 Seasonal Allergies Seasonal Allergies: Yes Surgeries Yes (RIGHT CATARACTS, LT INGUINAL HERNIA, TURP) Eye Surgery, Tonsillectomy, Transurethral Resection Respiratory No Cardiovascular Yes Hypertension Neurological Yes (SYMPTOMS OF PARKINSON'S-tremors to right hand) Parkinson's Disease Reproductive System Hx Reproductive Disorders: No Sexually Transmitted Disease: No HIV/AIDS: No Genitourinary Yes (TURP on 01/25/17 - Dr. Siegel) Prostate Problems, Bladder Infection Gastrointestinal Yes Gastroesophageal Reflux, Chronic Constipation Musculoskeletal Yes Arthritis, Rheumatoid Arthritis, Chronic Back Pain Endocrine History of Endocrine Disorders: No HEENT History of HEENT Disorders: Yes HEENT Disorders: Cataract Loss of Vision: Bilateral Hearing Impairment: Denies Cancer No Psychosocial History of Psychiatric Problem: Yes (per ) Behavioral Health Disorders: Depression Integumentary History of Skin or Integumenta: Yes (HX OF "CONCRETE POISON" ON HANDS) Blood Transfusions History of Blood Disorders: No Adverse Reaction to a Blood Tr: No Family Medical History Significant Family History: No Pertinent Family Hx Family Hx: Arthritis 19 FATHER 19 MOTHER Completed stroke 19 FATHER G8 BROTHER FH: throat cancer 19 FATHER FHx: heart disease G8 BROTHER Hypertension G8 BROTHER Thyroid disease 19 MOTHER Tuberculosis paternal grandfather Constitutional: weakness EENTM: no symptoms reported Respiratory: no symptoms reported Cardiovascular: no symptoms reported Gastrointestinal: no symptoms reported Genitourinary: other (recently had TURP) Physical Exam Vital Signs Vital Sign - Last 12Hours 02/03/17 02/03/17 02/03/17 15:17 15:40 18:51 Temp 99.5 Pulse 74 Resp 16 B/P (MAP) 176/88 Pulse Ox 98 O2 Delivery Room Air Capillary Refill : General Appearance: No Apparent Distress, Thin Eyes: Bilateral Eye Normal Inspection HEENT: Normal ENT Inspection Neck: Normal Inspection Respiratory: Chest Non Tender, Lungs Clear, Normal Breath Sounds, No Accessory Muscle Use, No Respiratory Distress Cardiovascular: Regular Rate, Rhythm, No Murmur Assessment/Plan Assessment and Plan CVA. Parkinson disease. Hypertension. Problems: Clinical Quality Measures DVT/VTE Risk/Contraindication: Risk Factor Score Per Nursin RFS Level Per Nursing on Admit: 4+=Very High RODO ROCHA DO Feb 03, 2017 19:24
--- NOTE | 2017-02-03 19:50 | PM&R Post Admission Assessment ---
Post Admission Physician Asses The preadmission screen agrees with the post admission assessment that the patient is a good candidate for inpatient rehabilitation. The patient will have a comprehensive program of inpatient rehabilitation with a goal of maximizing level of functional independence prior to discharge home with spouse. The patient will have PT/OT ninety minutes per day, each discipline, five days a week for gait, strengthening, conditioning, balance, ADLs, any patient/family/caregiver training as necessary. Speech therapy to do cognitive assessment and treat as indicated. Rehabilitation nursing to assist with bowel, bladder, skin, wound care, medication administration, pain management. Elevator Examiner to assist with discharge planning, community reentry. SCD's for DVT prophylaxis. He appears to be well motivated to participate in three hours of therapy a day. He should be able to tolerate three hours of therapy a day from a medical standpoint. He should benefit from the three hours of therapy a day. He has a reasonable discharge plan, reasonable discharge rehabilitation goals and a supportive family. He has various comorbidities that need to be closely monitored with medications and treatments adjusted on a daily basis as needed. These include: RA HTN Chronic low back pain ParkD Barriers to discharge for this patient who had been independent prior to this are for him to be modified independent to supervision for ADLs and mobility skills prior to discharge home with spouse, so as to lessen the burden of the caregivers. Risks for this patient include: 1. Fall 2. Fracture 3. DVT 4. Pulmonary embolism 5. Wound infection 6. Skin breakdown 7. Contractures 8. Poorly controlled pain 9. Urinary retention 10. UTI 11. Respiratory infection 12. Aspiration 13.worsening [place] D 14,Recurrent stroke 15.Worsening arthritic pain Estimated Length of Stay: 18days Prognosis: Rehab prognosis appears good for goal of discharge home with spouse modified independent to supervision for ADLs and mobility skills. JASVIR DUMONT MD Feb 03, 2017 19:50
[2017-02-03 20:23] VITALS: BP 156/74
[2017-02-03] MEDS: NITROGLYCERIN 2% OINT 1 GM UNIT DOSE PACKET TOP PRN (20:26)
[2017-02-03] MEDS: MILK OF MAGNESIA 400 MG/5 ML 30 ML UDC PO PRN (20:28)
[2017-02-03] MEDS: DOCUSATE SODIUM 100 MG (COLACE) CAP PO SCH (20:29)
[2017-02-03] MEDS: FAMOTIDINE 20 MG (PEPCID) TABLET PO SCH (20:29)
[2017-02-03] MEDS: ATORVASTATIN 40 MG (LIPITOR) TABLET PO SCH (20:29)
[2017-02-03 22:09] VITALS: BP 150/75
[2017-02-04 00:50] VITALS: BP 180/83
[2017-02-04] MEDS: NITROGLYCERIN 2% OINT 1 GM UNIT DOSE PACKET TOP PRN (01:53)
[2017-02-04 04:00] VITALS: BP 167/81
[2017-02-04] MEDS: SINEMET 25/100 (CARBIDOPA/LEVODOPA) TAB PO SCH ×3 (05:44→18:38)
[2017-02-04 08:00] VITALS: BP 178/88
--- NOTE | 2017-02-04 08:34 | Progress Note (SOAP) ---
Subjective Time Seen by Provider: 08:30 Subjective/Events-last exam CVA. Parkinson disease. Hypertension. Patient's blood pressure elevated to put on lisinopril Objective Exam Vital Signs Date Time Temp Pulse Resp B/P (MAP) Pulse Ox O2 Delivery O2 Flow Rate FiO2 02/04/17 04:00 97.2 61 18 167/81 94 Room Air 02/04/17 00:50 99.5 69 18 180/83 97 Room Air 02/03/17 22:14 Room Air 02/03/17 22:09 75 150/75 02/03/17 20:23 98.9 69 14 156/74 97 Room Air 02/03/17 18:51 99.5 74 16 167/87 98 Room Air 02/03/17 15:40 176/88 02/03/17 15:17 Room Air Capillary Refill : General Appearance: No Apparent Distress, Thin HEENT: Normal ENT Inspection Neck: Normal Inspection Respiratory: No Accessory Muscle Use, No Respiratory Distress Cardiovascular: Regular Rate, Rhythm, No Murmur Assessment/Plan Assessment/Plan Assess & Plan/Chief Complaint CVA. Hypertension. Parkinson disease. Patient's blood pressure elevated put on lisinopril Clinical Quality Measures DVT/VTE Risk/Contraindication: Risk Factor Score Per Nursin RFS Level Per Nursing on Admit: 4+=Very High RODO ROCHA DO Feb 04, 2017 08:34
--- NOTE | 2017-02-04 09:46 | Occupational Ther Daily Note ---
OT Current Status-Daily Note Subjective Pt in bed, states he wasn't feeling well earlier this morning, but is doing better now. Pt has no c/o pain during session. Mental Status/Objective Functional [place] Measure 0=Not Assessed/NA 4=Minimal Assistance 1=Total Assistance 5=Supervision or Setup 2=Maximal Assistance 6=Modified [place] 3=Moderate Assistance 7=Complete [place] ADL-Treatment Pt supine to sit with SBA. Declined bathing this morning. Pt donned pants with SBA and increased time. Stood with supervision for balance during pant hike. Gait to restroom with FWW. Pt transferred to toilet with SBA using grab bars for balance. Pt able to complete toileting hygiene and clothing management with SBA. Grooming tasks completed standing at sink. Pt washed hands and face, brushed teeth, and combed hair with SBA. Pt moves slowly and requires increased time for ADL tasks. Functional [place] Measure 0=Not Assessed/NA 4=Minimal Assistance 1=Total Assistance 5=Supervision or Setup 2=Maximal Assistance 6=Modified [place] 3=Moderate Assistance 7=Complete IndependenceIRFPAI Quality Coding Scale 6 Independent with activity with or without an assistive device 5 Patient requires set up or clean up by helper. Patient completes activity by themselves 4 Supervision or touching assist (CGA). [place] provide cues , steadying assist 3 The helper provides less than half the effort to complete the activity 2 The helper provides more than half the effort to complete the activity 1 Dependent. The helper does all the effort to complete an activity 7 Patient refused to complete or attempt activity 9 The patient did not perform the activity before the current illness or injury 88 Not attempted due to Medical conditions or safety concerns Grooming (FIM): 5 Oral Hygiene (QC): 5 Lower Body Dressing (FIM): 5 Other Treatment Gait to therapy gym with FWW, slow pace. Pt completed UE exercises to promote increased strength needed for ADLs and transfers. Pt performed two sets of 10 reps of shoulder flexion, forward press, biceps curls, and wrist flex/ext with 1 #dowel mariza. Rest breaks between exercises. Arm bike x8 minutes to increase overall strength and activity tolerance. Pt completed task with minimal resistance and slow pace. No rest breaks needed. Pt completed graded clothespin task with bilateral hands to increase md pediatric allergist/pinch strength. Pt completed task with increased time. Pt returned to room, sitting EOB with needs met after session. OT Short Term Goals Short Term Goals Time Frame: Feb 10, 2017 Transfers (B,C,W/C) (FIM): 6 Toilet/Commode Transfer(FIM): 5 Additional Short Term Goals: 2-Verbalize Understanding, 3-ImproveStrength/Sheila 1=Demonstrate adherence to instructed precautions during ADL tasks. 2=Patient will verbalize/demonstrate understanding of assistive devices/ modifications for ADL. 3=Patient will improve strength/tolerance for activity to enable patient to perform ADL's. OT Detention Goals Detention Goals Time Frame: Feb 25, 2017 Eating (FIM): 6 Eating (QC): 6 Groomin Oral Hygiene (QC): 6 Bathing(FIM): 6 Shower/Bathe Self (QC): 6 Upper Body Dressing(FIM): 6 Upper Body Dressing (QC): 6 Lower Body Dressing(FIM): 6 Lower Body Dressing (QC): 6 On/Off Footwear (QC): 6 Toileting(FIM): 6 Toileting Hygiene (QC): 6 Toilet/Commode Transfer(FIM): 6 Toilet/Commode Transfer (QC): 6 Tub Transfer(FIM): 6 Shower Transfer(FIM): 6 Additional Goals: 2-Verbalize Understanding, 3-ImproveStrength/Sheila 1=Demonstrate adherence to instructed precautions during ADL tasks. 2=Patient will verbalize/demonstrate understanding of assistive devices/ modifications for ADL. 3=Patient will improve strength/tolerance for activity to enable patient to perform ADL's. 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 Plan of Care: ADL Retraining, Functional Mobility, Group Exercise/Act as Ind ( education, exercise, socialization, activity tolerance, funct activities), UE Funct Exercise/Act, UE Neuromus Re-Ed/Coord Treatment Duration: Feb 25, 2017 Frequency: At least 5 of 7 days/Wk (IRF) Estimated Hrs Per Day: 1.5 hours per day Agreement: Yes Rehab Potential: Fair Time/GCodes Start Time: 08:15 Stop Time: 09:15 Total Time Billed (hr/min): 60 Billed Treatment Time 1 visit, ADLx2(25minutes), EXx2(35minutes) BATOOL CH OT Feb 04, 2017 09:46
[2017-02-04] MEDS: FOLIC ACID 1 MG TAB PO SCH (09:53)
[2017-02-04] MEDS: cefTRIAXone INJECTION 1,000 MG in NS (IVPB) 50 ML IV SCH (09:53)
[2017-02-04] MEDS: DOCUSATE SODIUM 100 MG (COLACE) CAP PO SCH ×2 (09:53→20:45)
[2017-02-04] MEDS: ASPIRIN 81 MG CHEW (CHILDREN'S ASA) PO SCH (09:53)
[2017-02-04] MEDS: FAMOTIDINE 20 MG (PEPCID) TABLET PO SCH ×2 (09:53→20:45)
--- NOTE | 2017-02-04 09:58 | ST Cognitive Linguistic Eval ---
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 Malik Grady Reason for Referral: Evaluation/Treatment Cognitive, Speech, and Language Evaluation Medical History Pertinent Medical History: Arthritis, COPD, CVA, GERD, Parkinson's Reviewed History: Yes Social History Current Living Status: Spouse Speech PLF-Current Status Prior Level of Function The patient was previously treated by speech pathology as an outpatient secondary to moderate dysphonia. Per patient, he has not experienced a decline in his communication abilities, however, feels communication, "just takes a little longer." Subjective The patient was seated upright in recliner upon entrance. The patient greeted the clinician appropriately and was agreeable to participation in the cognitive , speech, and language evaluation. Language Eval: Auditory Comprehends Simple Yes/No Ques: Functional Indent/Objects Multiple [place]: Functional Ident/Pics in Multiple [place]: Functional Follows 1-Step Commands: Functional Follows Complex Directions: Mild Follows General Conversations: Mild Language Eval: Verbal Language Completes Spontaneous Greeting: Functional Produces Auto, Serial Info: Functional Imitates Simple Words/Phrases: Functional Word Finding: Functional Requests Basic Needs: Functional States Basic Personal Info: Functional Expresses Complex Ideas: Mild Cognitive Patient Orientation The patient was independently oriented to month, day of week, and year. Objective Cognitive Domain Attention: WNL Memory: Moderate Problem Solving: Mild Objective Oral Motor/Speech Production The patient continues to demonstrate moderate hypofunctional dysphonia characterized by a weak, breathy vocal quality with reduced volume. Impression The patient demonstrated mild to moderate cognitive deficits, most notably in the area of memory. Additionally, the patient displays moderate hypofunctional dysphonia. Communication/Social Cognition Comprehension: 4 Expression: 4 Social Interaction: 5 Problem Solvin Memory: 3 Speech Patient Assess Expression of Ideas/Wants: Exhibits (3) Understanding [place] Content: Usually Understands (3) Brief Interview-Mental Status: Yes Repetition of Three Words: Three (3) Temporal Orientation: Year: Correct (3) Temporal Orientation: Month: Accurate within 5 days(2) Temporal Orientation: Day: Correct (1) Recall : Wear to say "Sock": Yes, no cue required (2) Recall : Color: Yes, no cue required (2) Recall : Bed: Yes, no cue required (2) Speech Short Term Goals Short Term Goals Short Term Goals 1. The patient will recall and demonstrate three functional memory strategies for use at home with mild clinician verbal cueing. 2. The patient will recall three items from a recently presented article/text with 80% accuracy. Time Frame-STG: Two Weeks Speech Hha Goals Usp Goals 1. The patient will display improved cognitive linguistic skills for increased safety and function with ADL's in the least restrictive setting. Time Frame: Three Weeks Comprehension: 5 Expression: 5 Social Interaction: 5 Problem Solvin Memory: 4 Speech-Plan Treatment Plan Speech Therapy Treatment Plan: Continue Plan of Care Continue skilled speech pathology services to target functional memory strategies. Frequency: Modified Program (IRF) (Four to five times per week.) Estimated Hrs Per Day: .5 hour per day Rehab Potential: Fair Safety Risks/Education Teaching Recipient: Patient Teaching Methods: Discussion Response to Teaching: Verbalize Understanding Education Topics Provided: Results, Recommendations, Plan of Care Time Speech Therapy Time In: 10:00 Speech Therapy Time Out: 10:15 Total Billed Time: 15 Billed Treatment Time 1, TAI HALE Feb 04, 2017 09:58
--- NOTE | 2017-02-04 10:11 | Physical Therapy Daily Note ---
PT Daily Note-Current Subjective Patient initially declined PT due to nausea and lightheadness, however, agreed after education and encouragement. Pain Numeric Pain Scale: 0-No Pain Location: No Pain Reported Mental Status Patient Orientation: Normal For Age Transfers Functional [place] Measure 0=Not Assessed/NA 4=Minimal Assistance 1=Total Assistance 5=Supervision or Setup 2=Maximal Assistance 6=Modified [place] 3=Moderate Assistance 7=Complete IndependenceIRFPAI Quality Coding Scale 6 Independent with activity with or without an assistive device 5 Patient requires set up or clean up by helper. Patient completes activity by themselves 4 Supervision or touching assist (CGA). [place] provide cues , steadying assist 3 The helper provides less than half the effort to complete the activity 2 The helper provides more than half the effort to complete the activity 1 Dependent. The helper does all the effort to complete an activity 7 Patient refused to complete or attempt activity 9 The patient did not perform the activity before the current illness or injury 88 Not attempted due to Medical conditions or safety concerns Transfers (B, C, W/C) (FIM): 5 Scootin Rollin Roll Left to Right (QC): 5 Supine to/from Sit: 5 Sit to/from Stand: 5 Sit to Lying (QC): 4 Sit to Stand (QC): 4 Chair/Abl-lj-Veyvr Xfer(QC): 4 Bed to/from Chair: 5 Car Transfer (QC): 5 Gait Training Does the Patient Walk?: Yes Gait (FIM): 5 Distance (FIM): 3=150 ft Distance: 200' x 2 Walk 10 feet (QC): 4 Walk 50 ft with 2 Turns(QC): 4 Walk 150 ft (QC): 4 Gait Level of Assist: 5 Gait Assistive Device: FWW festinating gait, shuffle sequence Exercises Standing: Heel/toe raises, Marching, Mini squats Standing Reps: 15 (2 sets to increase strength and improve functional mobility) NuStep Minutes: 10 NuStep Workload: 4 (to improve reciprocal pattern with gross motor skills) Assessment Patient progressing with treatment plan. Patient continues to require much encouragement to participate with therapy due to not feeling well. PT discussed with RN to encourage patient to increase fluid and food intact to build strength. PT Short Term Goals Short Term Goals Time Frame: Feb 10, 2017 Transfers (B,C,W/C) (FIM): 6 Gait (FIM): 4 Gait Distance Comment: 200' Gait Level of Assist: 4 Gait Assistive Device: FWW PT Residential Goals Residential Goals PT Residential Goals Time Frame: Feb 24, 2017 Transfers (B,C,W/C) (FIM): 7 Sit to Lying (QC): 6 Lying-Sitting on Side/Bed(QC): 6 Sit to Stand (QC): 6 Rollin Roll Left to Right (QC): 6 Chair/Wyy-qw-Axpyw Xfer(QC): 6 Car Transfer (QC): 4 (SBA) Does the Patient Walk: No and Walking Goal IS indicated Gait (FIM): 6 Gait distance (FIM): 3=150 ft Walk 10 feet (QC): 6 Walk 10ft-Uneven Surface(QC): 6 Walk 50ft with 2 Turns (QC): 6 Walk 150 ft (QC): 6 Gait Level of Assist: 6 Gait Assistive Device: FWW Stairs (FIM): 5 # of Steps: 12 1 Step (curb) (QC): 4 4 Steps (QC): 4 12 Steps (QC): 4 Stairs Level Of Assist: 5 Picking up an Object (QC): 4 PT Plan Treatment/Plan Treatment Plan: Continue Plan of Care Treatment Plan: Bed Mobility, Education, Functional Activity Sheila, Functional Strength, Group Therapy, Gait, Safety, Therapeutic Exercise, Transfers Treatment Duration: Feb 24, 2017 Frequency: At least 5 of 7 days/Wk (IRF) Estimated Hrs Per Day: 1.5 hours per day Patient and/or Family Agrees t: Yes Time/GCodes Time In: 915 Time Out: 1005 Total Billed Treatment Time: 50 Total Billed Treatment 1 visit EX x 2 35 min GT 15 min BHUMI MACIAS PT Feb 04, 2017 10:11
[2017-02-04] MEDS: lisINopril 10 MG (PRINIVIL) TAB PO SCH (10:16)
[2017-02-04] MEDS: MILK OF MAGNESIA 400 MG/5 ML 30 ML UDC PO PRN (10:16)
--- NOTE | 2017-02-04 11:53 | Occupational Ther Daily Note ---
OT Current Status-Daily Note Subjective Pt in bed, agrees to treatment. Pt reports "stomach ache", states he attributes this to not having a BM for several days Mental Status/Objective Functional [place] Measure 0=Not Assessed/NA 4=Minimal Assistance 1=Total Assistance 5=Supervision or Setup 2=Maximal Assistance 6=Modified [place] 3=Moderate Assistance 7=Complete [place] ADL-Treatment Functional [place] Measure 0=Not Assessed/NA 4=Minimal Assistance 1=Total Assistance 5=Supervision or Setup 2=Maximal Assistance 6=Modified [place] 3=Moderate Assistance 7=Complete IndependenceIRFPAI Quality Coding Scale 6 Independent with activity with or without an assistive device 5 Patient requires set up or clean up by helper. Patient completes activity by themselves 4 Supervision or touching assist (CGA). [place] provide cues , steadying assist 3 The helper provides less than half the effort to complete the activity 2 The helper provides more than half the effort to complete the activity 1 Dependent. The helper does all the effort to complete an activity 7 Patient refused to complete or attempt activity 9 The patient did not perform the activity before the current illness or injury 88 Not attempted due to Medical conditions or safety concerns Other Treatment Supine to sit with SBA. Sit to stand with SBA. Gait to therapy gym with FWW, slow pace. Pt completed tabletop peg activity with bilateral UE with 1# weights in place to increase strength and coordination skills. Pt completed task slowly , but did not require any assistance. Arm arc activity with bilateral UE to increase strength and activity tolerance. Pt completed fine motor activity with nuts and bolts with 1# weights in place to increase strength and coordination/ manipulation. Pt required increased time for task. Pt returned to room, sitting EOB with needs met after session. OT Short Term Goals Short Term Goals Time Frame: Feb 10, 2017 Transfers (B,C,W/C) (FIM): 6 Toilet/Commode Transfer(FIM): 5 Additional Short Term Goals: 2-Verbalize Understanding, 3-ImproveStrength/Sheila 1=Demonstrate adherence to instructed precautions during ADL tasks. 2=Patient will verbalize/demonstrate understanding of assistive devices/ modifications for ADL. 3=Patient will improve strength/tolerance for activity to enable patient to perform ADL's. OT Puppy Trainer Goals Puppy Trainer Goals Time Frame: Feb 25, 2017 Eating (FIM): 6 Eating (QC): 6 Groomin Oral Hygiene (QC): 6 Bathing(FIM): 6 Shower/Bathe Self (QC): 6 Upper Body Dressing(FIM): 6 Upper Body Dressing (QC): 6 Lower Body Dressing(FIM): 6 Lower Body Dressing (QC): 6 On/Off Footwear (QC): 6 Toileting(FIM): 6 Toileting Hygiene (QC): 6 Toilet/Commode Transfer(FIM): 6 Toilet/Commode Transfer (QC): 6 Tub Transfer(FIM): 6 Shower Transfer(FIM): 6 Comprehension(FIM): 5 Expression (FIM): 5 Social Interaction(FIM): 5 Problem Solving(FIM): 4 Memory(FIM): 4 Additional Goals: 2-Verbalize Understanding, 3-ImproveStrength/Sheila 1=Demonstrate adherence to instructed precautions during ADL tasks. 2=Patient will verbalize/demonstrate understanding of assistive devices/ modifications for ADL. 3=Patient will improve strength/tolerance for activity to enable patient to perform ADL's. 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 Plan of Care: ADL Retraining, Functional Mobility, Group Exercise/Act as Ind ( education, exercise, socialization, activity tolerance, funct activities), UE Funct Exercise/Act, UE Neuromus Re-Ed/Coord Treatment Duration: Feb 25, 2017 Frequency: At least 5 of 7 days/Wk (IRF) Estimated Hrs Per Day: 1.5 hours per day Agreement: Yes Rehab Potential: Fair Time/GCodes Start Time: 11:15 Stop Time: 11:45 Total Time Billed (hr/min): 30 Billed Treatment Time 1 visit, EXx2(30minutes) BATOOL CH OT Feb 04, 2017 11:53
[2017-02-04 12:00] VITALS: BP 170/75
--- NOTE | 2017-02-04 14:13 | Physical Therapy Daily Note ---
PT Daily Note-Current Subjective Patient agrees to PT. Pain Numeric Pain Scale: 0-No Pain Location: No Pain Reported Mental Status Patient Orientation: Normal For Age Transfers Functional [place] Measure 0=Not Assessed/NA 4=Minimal Assistance 1=Total Assistance 5=Supervision or Setup 2=Maximal Assistance 6=Modified [place] 3=Moderate Assistance 7=Complete IndependenceIRFPAI Quality Coding Scale 6 Independent with activity with or without an assistive device 5 Patient requires set up or clean up by helper. Patient completes activity by themselves 4 Supervision or touching assist (CGA). [place] provide cues , steadying assist 3 The helper provides less than half the effort to complete the activity 2 The helper provides more than half the effort to complete the activity 1 Dependent. The helper does all the effort to complete an activity 7 Patient refused to complete or attempt activity 9 The patient did not perform the activity before the current illness or injury 88 Not attempted due to Medical conditions or safety concerns Transfers (B, C, W/C) (FIM): 5 Scootin Rollin Roll Left to Right (QC): 4 Supine to/from Sit: 5 Sit to/from Stand: 5 Sit to Lying (QC): 4 Sit to Stand (QC): 4 Gait Training Does the Patient Walk?: Yes Gait (FIM): 5 Distance (FIM): 3=150 ft Distance: 300' x 3 Walk 10 feet (QC): 4 Walk 50 ft with 2 Turns(QC): 4 Walk 150 ft (QC): 4 Walking 10ft/uneven surface-QC: 4 Gait Level of Assist: 5 Gait Persons Needed: 1 Gait Assistive Device: FWW Parkinson's gait sequence on all terrains, inside and outside, close SBA for safety Exercises Seated Therapy Exercises: Ankle pumps, Long arc quads, Hip flexion, Hip abd/add Seated Reps: 25 (2 sets to increase strength) Assessment Current Status: Excellent Progress PT Short Term Goals Short Term Goals Time Frame: Feb 10, 2017 Transfers (B,C,W/C) (FIM): 6 Gait (FIM): 4 Gait Distance Comment: 200' Gait Level of Assist: 4 Gait Assistive Device: FWW PT Range Mechanic Goals Nursing Home Goals PT Range Mechanic Goals Time Frame: Feb 24, 2017 Transfers (B,C,W/C) (FIM): 7 Sit to Lying (QC): 6 Lying-Sitting on Side/Bed(QC): 6 Sit to Stand (QC): 6 Rollin Roll Left to Right (QC): 6 Chair/Aep-ya-Ubvss Xfer(QC): 6 Car Transfer (QC): 4 (SBA) Does the Patient Walk: No and Walking Goal IS indicated Gait (FIM): 6 Gait distance (FIM): 3=150 ft Walk 10 feet (QC): 6 Walk 10ft-Uneven Surface(QC): 6 Walk 50ft with 2 Turns (QC): 6 Walk 150 ft (QC): 6 Gait Level of Assist: 6 Gait Assistive Device: FWW Stairs (FIM): 5 # of Steps: 12 1 Step (curb) (QC): 4 4 Steps (QC): 4 12 Steps (QC): 4 Stairs Level Of Assist: 5 Picking up an Object (QC): 4 PT Plan Treatment/Plan Treatment Plan: Continue Plan of Care Treatment Plan: Bed Mobility, Education, Functional Activity Sheila, Functional Strength, Group Therapy, Gait, Safety, Therapeutic Exercise, Transfers Treatment Duration: Feb 24, 2017 Frequency: At least 5 of 7 days/Wk (IRF) Estimated Hrs Per Day: 1.5 hours per day Patient and/or Family Agrees t: Yes Time/GCodes Time In: 1300 Time Out: 1340 Total Billed Treatment Time: 40 Total Billed Treatment 1 visit GT x 2 25 min EX 15 min BHUMI MACIAS PT Feb 04, 2017 14:13
[2017-02-04] MEDS: ENOXAPARIN 40 MG/0.4 ML (LOVENOX) SYR SC SCH (15:32)
[2017-02-04 15:44] VITALS: BP 130/77
[2017-02-04 20:00] VITALS: BP 143/75
[2017-02-04] MEDS: ATORVASTATIN 40 MG (LIPITOR) TABLET PO SCH (20:45)
[2017-02-05] VITALS: BP 179/87
[2017-02-05] MEDS: NITROGLYCERIN 2% OINT 1 GM UNIT DOSE PACKET TOP PRN (00:13)
[2017-02-05] MEDS: MILK OF MAGNESIA 400 MG/5 ML 30 ML UDC PO PRN (02:32)
[2017-02-05 04:00] VITALS: BP 171/88
[2017-02-05] MEDS ORDERED: LIDOCAINE UROJET 2% GEL 10 ML PKG ONE (05:16)
[2017-02-05] MEDS: SINEMET 25/100 (CARBIDOPA/LEVODOPA) TAB PO SCH ×3 (06:33→17:36)
--- NOTE | 2017-02-05 08:04 | Individualized Plan of Care ---
Individualized Plan of Care Rehab Nursing IPOC Order Admission Date Feb 03, 2017 at 11:35 Current Orders Orders Influenza Vac Order Indicated (02/03/17 12:13) Code/Resuscitation (02/03/17 12:13) Initiate Admission Nursing Pro .admission (02/03/17 12:13) General/Regular (02/03/17 Lunch) Mat Protocol-Rt Rfs (02/03/17 12:13) Rt Request For Service (02/03/17 12:13) Pt Evaluate/Treat Request (02/03/17 13:11) Request Speech/Language Servic (02/03/17 13:11) Sequential Compression Device 08,20 (02/03/17 13:15) Dvt/Vte Risk - Notifiy Physici (02/03/17 13:15) Occupational Therapy Order (02/03/17 13:16) Enoxaparin Injection (Lovenox Injection) (02/03/17 15:00) Docusate Sodium Capsule (Colace Capsule) (02/03/17 21:00) Aspirin Chewable Tablet (Baby Aspirin Ch (02/04/17 09:00) Nitroglycerin Ointment (Nitrobid Ointme (02/03/17 14:00) Famotidine Tablet (Pepcid Tablet) (02/03/17 21:00) Meclizine Tablet (Antivert Tablet) (02/03/17 14:00) Acetaminophen Tablet (Tylenol Tablet) (02/03/17 14:00) Oxycodone/Apap 5/325mg Tablet (Percocet (02/03/17 14:00) Promethazine Injection (Phenergan Injec (02/03/17 14:00) Ondansetron Injection (Zofran Injectio (02/03/17 14:00) Sodium Chloride Flush (Catheter Flush Sy (02/03/17 14:00) Ceftriaxone Injection (Rocephin Injectio (02/03/17 14:00) Vital Signs: Every 4 Hours (02/03/17 13:54) Patient Visit (02/03/17 ) Pt Eval Moderate Complexity (02/03/17 ) Gait Training, Ea 15 Min (02/03/17 ) Atorvastatin Tablet (Lipitor) (02/03/17 21:00) Ceftriaxone Injection (Rocephin Injectio (02/04/17 09:00) Sodium Chloride Flush (Catheter Flush Sy (02/03/17 15:00) Influenza Trivalent [id number] (Afluria (02/03/17 15:45) Folic Acid Tablet (Folic Acid Tablet) (02/03/17 16:00) Methotrexate Tablet (Methotrexate Tablet (02/07/17 09:00) Patient Visit (02/03/17 ) Gait Training, Ea 15 Min (02/03/17 ) Exercise Therap, Ea 15 Min (02/03/17 ) Ex Neuromuscular, Ea 15 Min (02/03/17 ) Admission-Acute Rehab Unit (02/03/17 16:36) Consult Physician (02/03/17 16:38) Consult Physician (02/03/17 17:04) Carbidopa/Levodopa 25/100 (Sinemet 25/10 (02/04/17 07:00) Magnesium Hydroxide Oral Susp (Mom Oral (02/03/17 19:30) Lisinopril Tablet (Zestril Tablet) (02/04/17 09:00) Ex Neuromuscular, Ea 15 Min (02/03/17 ) Patient Visit (02/04/17 ) Speech Sound Lang Comp (02/04/17 ) Patient Visit (02/04/17 ) Gait Training, Ea 15 Min (02/04/17 ) Exercise Therap, Ea 15 Min (02/04/17 ) Lidocaine 2% (Urojet) (Xylocaine Urojet) (02/05/17 05:16) Phenazopyridine Tablet (Pyridium Tablet) (02/05/17 09:00) Straight Cath (Urinary) (02/05/17 05:56) Lactulose Oral Solution (Enulose Oral So (02/05/17 09:00) Other Nursing Orders: Monitor for any urinary retention and constipation Intensity of Therapy to be met Patient to be seen: Min.3h per day/5 of 7d PT IPOC Problem List: Activity Tolerance, Functional Strength, Safety, Balance, Gait, Transfer, Bed Mobility, ROM Treatment Plan: Continue Plan of Care Bed Mobility, Education, Functional Activity Sheila, Functional Strength, Group Therapy, Gait, Safety, Therapeutic Exercise, Transfers Treatment Duration: Feb 24, 2017 Frequency: At least 5 of 7 days/Wk (IRF) Estimated Hrs Per Day: 1.5 hours per day OT IPOC Problems: Decreased Activ Tolerance, Decreased UE Strength, Dependent Transfers , Impaired Funct Balance, Impaired Self-Care Skills OT Treatment, Training and Edu: Yes OT Problems Pt would benefit from skilled OT to increase his independence in basic self care to allow him to safely return home to live with his and to decrease caregiver burden 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 Plan of Care: ADL Retraining, Functional Mobility, Group Exercise/Act as Ind ( education, exercise, socialization, activity tolerance, funct activities), UE Funct Exercise/Act, UE Neuromus Re-Ed/Coord Treatment Duration: Feb 25, 2017 Frequency: At least 5 of 7 days/Wk (IRF) Estimated Hrs Per Day: 1.[address] IPOC Speech Therapy Treatment Plan: Continue Plan of Care Treatment Duration: Feb 25, 2017 Frequency: Modified Program (IRF) (Four to five times per week.) Estimated Hrs Per Day: .5 hour per day Patents Examiner/Case Mgmt Patents Examiner/Case Managemen: Discharge Planning, Patient/Family Counseling Physician IPOC Medical Issues being managed closely and that require the 24 hour availability of a physician:HTN Medical Issues: DVT Prophylaxis, Falls Precautions, Fluid/Electrolyte/ Nutrition Balance, Infection Protection, Other (List) (as per above) Brief Synthesis of Preadmission Screen, Post-Admission Evaluation, and Therapy Evaluations:76 yo male who sustained a stroke but had been Independent prior to this Now referred to IRU for stroke rehab.Lives with spouse Medical Prognosis: Good Anticipated Length of Stay: 02-25-2017 Rehab Goals Modified Independent to supervision for adls and mobility skills Anticipated discharge destinat: Home with spouse and [facility] JASVIR DUMONT MD Feb 05, 2017 08:04
[2017-02-05] MEDS: FOLIC ACID 1 MG TAB PO SCH (08:52)
[2017-02-05] MEDS: FAMOTIDINE 20 MG (PEPCID) TABLET PO SCH ×2 (08:52→21:15)
[2017-02-05] MEDS: DOCUSATE SODIUM 100 MG (COLACE) CAP PO SCH ×2 (08:52→21:15)
[2017-02-05] MEDS: ASPIRIN 81 MG CHEW (CHILDREN'S ASA) PO SCH (08:52)
[2017-02-05] MEDS: PHENAZOPYRIDINE 100 MG (PYRIDIUM) TABLET PO SCH ×2 (08:52→21:15)
[2017-02-05] MEDS: LACTULOSE SYRUP 10GM/15ML (ENULOSE) 30ML UDC PO SCH ×2 (08:53→12:49)
[2017-02-05] MEDS: cefTRIAXone INJECTION 1,000 MG in NS (IVPB) 50 ML IV SCH (08:53)
[2017-02-05 09:00] VITALS: BP 140/66
[2017-02-05] MEDS: lisINopril 10 MG (PRINIVIL) TAB PO SCH (09:03)
[2017-02-05] MEDS ORDERED: LACTULOSE SYRUP 10GM/15ML (ENULOSE) 30ML UDC PO PRN (12:30)
--- NOTE | 2017-02-05 12:42 | Physical Therapy Daily Note ---
PT Daily Note-Current Subjective Pt report he was given a laxative and doesn't want to get too far from his room. Mental Status Patient Orientation: Normal For Age Transfers Functional [place] Measure 0=Not Assessed/NA 4=Minimal Assistance 1=Total Assistance 5=Supervision or Setup 2=Maximal Assistance 6=Modified [place] 3=Moderate Assistance 7=Complete IndependenceIRFPAI Quality Coding Scale 6 Independent with activity with or without an assistive device 5 Patient requires set up or clean up by helper. Patient completes activity by themselves 4 Supervision or touching assist (CGA). [place] provide cues , steadying assist 3 The helper provides less than half the effort to complete the activity 2 The helper provides more than half the effort to complete the activity 1 Dependent. The helper does all the effort to complete an activity 7 Patient refused to complete or attempt activity 9 The patient did not perform the activity before the current illness or injury 88 Not attempted due to Medical conditions or safety concerns Gait Training Gait Assistive Device: FWW Walked 250ft with FWW at SBA level. Pt educated to stand upright and not lean on the FWW. Assessment Pt is making progress with gait stability. PT Short Term Goals Short Term Goals Time Frame: Feb 10, 2017 Transfers (B,C,W/C) (FIM): 6 Gait (FIM): 4 Gait Distance Comment: 200' Gait Level of Assist: 4 Gait Assistive Device: FWW PT Half-Way Goals Division Superintendent Goals PT Half-Way Goals Time Frame: Feb 24, 2017 Transfers (B,C,W/C) (FIM): 7 Sit to Lying (QC): 6 Lying-Sitting on Side/Bed(QC): 6 Sit to Stand (QC): 6 Rollin Roll Left to Right (QC): 6 Chair/Ufe-jj-Ikhcw Xfer(QC): 6 Car Transfer (QC): 4 (SBA) Does the Patient Walk: No and Walking Goal IS indicated Gait (FIM): 6 Gait distance (FIM): 3=150 ft Walk 10 feet (QC): 6 Walk 10ft-Uneven Surface(QC): 6 Walk 50ft with 2 Turns (QC): 6 Walk 150 ft (QC): 6 Gait Level of Assist: 6 Gait Assistive Device: FWW Stairs (FIM): 5 # of Steps: 12 1 Step (curb) (QC): 4 4 Steps (QC): 4 12 Steps (QC): 4 Stairs Level Of Assist: 5 Picking up an Object (QC): 4 PT Plan Treatment/Plan Treatment Plan: Continue Plan of Care Treatment Plan: Bed Mobility, Education, Functional Activity Sheila, Functional Strength, Group Therapy, Gait, Safety, Therapeutic Exercise, Transfers Treatment Duration: Feb 24, 2017 Frequency: At least 5 of 7 days/Wk (IRF) Estimated Hrs Per Day: 1.5 hours per day Patient and/or Family Agrees t: Yes Time/GCodes Time In: 09 Time Out: 0950 Total Billed Treatment Time: 12 Total Billed Treatment visit, gait 12 min MARTITA PARKER PT Feb 05, 2017 12:42
[2017-02-05] MEDS: BISACODYL 10 MG SUPP (DULCOLAX) PR SCH ×2 (12:49→21:16)
[2017-02-05] MEDS: amLODIPine 5 MG (NORVASC) TAB PO SCH (12:49)
[2017-02-05 13:26] VITALS: BP 137/80
--- NOTE | 2017-02-05 14:05 | Progress Note-Hospitalist ---
Progress Note Progress Notes/Assess & Plan Date Seen 02/05/17 Time Seen by Provider: 12:00 Diagonsis/Assessment & Plan Chart Review: BP 171/88 tax expert: Pt is on Nitropase prn BP this am was 140/66 Added Lisinopril yesterday Patient Interview: BP discussed and is elevated, BP meds were added and this was discussed Pt was standing with a walker prior to interview Pt states he has not had any BMs since Tuesday Physical exam stable Pt denies experiencing pain, except around rectum during restroom visits. A suppository was suggested. AFVSS, Frail, thin, at bedside RRR, CTAB No edema Assessment: Severe PD Weakness with Debility Severe constipation HTN OOC Plan: Norvasc 5mg Suppository Soap suds enema Lactulose Scribed by Klarissa Riddle under the direct supervision of Dr. Sarkar. KINZA SARKAR DO Feb 05, 2017 14:05
[2017-02-05] MEDS: ENOXAPARIN 40 MG/0.4 ML (LOVENOX) SYR SC SCH (14:46)
[2017-02-05 16:29] VITALS: BP 132/75
[2017-02-05 20:04] VITALS: BP 111/60
[2017-02-05] MEDS: ATORVASTATIN 40 MG (LIPITOR) TABLET PO SCH (21:15)
[2017-02-06] VITALS (7 sets, daily range): BP systolic 116–145; BP diastolic 67–84
[2017-02-06] MEDS: SINEMET 25/100 (CARBIDOPA/LEVODOPA) TAB PO SCH ×3 (06:34→15:56)
[2017-02-06] MEDS: DOCUSATE SODIUM 100 MG (COLACE) CAP PO SCH ×2 (08:00→21:19)
[2017-02-06] MEDS: FAMOTIDINE 20 MG (PEPCID) TABLET PO SCH ×2 (08:00→21:19)
[2017-02-06] MEDS: lisINopril 10 MG (PRINIVIL) TAB PO SCH (08:00)
[2017-02-06] MEDS: FOLIC ACID 1 MG TAB PO SCH (08:01)
[2017-02-06] MEDS: amLODIPine 5 MG (NORVASC) TAB PO SCH (08:01)
[2017-02-06] MEDS: ASPIRIN 81 MG CHEW (CHILDREN'S ASA) PO SCH (08:01)
[2017-02-06] MEDS: PHENAZOPYRIDINE 100 MG (PYRIDIUM) TABLET PO SCH ×2 (08:01→21:19)
[2017-02-06] MEDS: LACTULOSE SYRUP 10GM/15ML (ENULOSE) 30ML UDC PO SCH ×2 (08:01→21:19)
[2017-02-06] MEDS: BISACODYL 10 MG SUPP (DULCOLAX) PR SCH ×2 (08:02→21:19)
[2017-02-06] MEDS: cefTRIAXone INJECTION 1,000 MG in NS (IVPB) 50 ML IV SCH (08:05)
[2017-02-06] MEDS: ENOXAPARIN 40 MG/0.4 ML (LOVENOX) SYR SC SCH (15:21)
[2017-02-06] MEDS: ATORVASTATIN 40 MG (LIPITOR) TABLET PO SCH (21:19)
[2017-02-07] VITALS (7 sets, daily range): BP systolic 131–145; BP diastolic 72–84
[2017-02-07] MEDS: SINEMET 25/100 (CARBIDOPA/LEVODOPA) TAB PO SCH ×3 (06:15→16:51)
[2017-02-07] MEDS: DOCUSATE SODIUM 100 MG (COLACE) CAP PO SCH ×2 (08:17→21:39)
[2017-02-07] MEDS: PHENAZOPYRIDINE 100 MG (PYRIDIUM) TABLET PO SCH ×2 (08:17→21:39)
[2017-02-07] MEDS: FAMOTIDINE 20 MG (PEPCID) TABLET PO SCH ×2 (08:17→21:39)
[2017-02-07] MEDS: cefTRIAXone INJECTION 1,000 MG in NS (IVPB) 50 ML IV SCH (08:17)
[2017-02-07] MEDS: ASPIRIN 81 MG CHEW (CHILDREN'S ASA) PO SCH (08:17)
[2017-02-07] MEDS: FOLIC ACID 1 MG TAB PO SCH (08:17)
[2017-02-07] MEDS: amLODIPine 5 MG (NORVASC) TAB PO SCH (08:18)
[2017-02-07] MEDS: LACTULOSE SYRUP 10GM/15ML (ENULOSE) 30ML UDC PO SCH ×2 (08:18→21:39)
[2017-02-07] MEDS: lisINopril 10 MG (PRINIVIL) TAB PO SCH (08:18)
[2017-02-07] MEDS: METHOTREXATE 2.5 MG TAB PO SCH (08:18)
--- NOTE | 2017-02-07 08:27 | Progress Note (SOAP) ---
Subjective Time Seen by Provider: 08:25 Subjective/Events-last exam CVA. Debility. Parkinson disease. Constipated patient doing better Objective Exam Vital Signs Date Time Temp Pulse Resp B/P (MAP) Pulse Ox O2 Delivery O2 Flow Rate FiO2 02/07/17 04:24 98.5 63 16 140/72 96 Room Air 02/07/17 00:23 98.7 65 16 141/81 97 Room Air 02/06/17 20:08 98.4 71 16 145/84 97 Room Air 02/06/17 15:24 97.8 72 18 135/72 97 Room Air 02/06/17 15:04 77 18 96 02/06/17 12:00 98.7 77 18 144/79 96 Room Air 02/06/17 08:46 Room Air Capillary Refill : General Appearance: No Apparent Distress, Thin HEENT: Normal ENT Inspection Neck: Normal Inspection Respiratory: Lungs Clear, Normal Breath Sounds, No Accessory Muscle Use, No Respiratory Distress Cardiovascular: Regular Rate, Rhythm, No Murmur Assessment/Plan Assessment/Plan Assess & Plan/Chief Complaint CVA. Hypertension. Parkinson disease. Patient's blood pressure elevated put on lisinopril. . 02/07/17. CVA. Hypertension. Parkinson disease. Constipation. Patient feels better after having a bowel movement Clinical Quality Measures DVT/VTE Risk/Contraindication: Risk Factor Score Per Nursin RFS Level Per Nursing on Admit: 4+=Very High RODO ROCHA DO Feb 07, 2017 08:27
[2017-02-07] MEDS: BISACODYL 10 MG SUPP (DULCOLAX) PR SCH ×2 (09:07→21:40)
--- NOTE | 2017-02-07 10:11 | Speech Therapy Daily Note ---
Speech Daily Progress Note Subjective Date Seen by Provider: Feb 07, 2017 Time Seen by Provider: 08:30 The patient was seated upright on edge of bed upon entrance. The patient greeted the clinician and was agreeable to participation in the cognitive treatment session. Objective Orientation: The patient was independently oriented to month, year, and day of week. The patient stated the date was the "17" and the location was "[place]." With mild clinician prompting and direction to the in-room external aid (white board), the patient was able to independently self-correct. ADL Sequencing: The patient accurately sequenced steps to "winterizing his trailer." The patient verbally described the sequence to clinicians without difficulty or word-finding pauses/halts. Functional Recall: The patient was able to recall therapy events prior to the weekend (with this clinician), as well as, informal discussions that took place. The patient recalled the clinician's name, independently. Assessment Assessment Current Status: Fair Progress Treatment Plan Continue Plan of Care Communication Comprehension: 4 Expression: 4 Social Cognition Social Interaction: 5 Problem Solvin Memory: 4 Speech Short Term Goals Short Term Goals Short Term Goals 1. The patient will recall and demonstrate three functional memory strategies for use at home with mild clinician verbal cueing. 2. The patient will recall three items from a recently presented article/text with 80% accuracy. Time Frame-STG: Two Weeks Speech [facility] Goals [facility] Goals 1. The patient will display improved cognitive linguistic skills for increased safety and function with ADL's in the least restrictive setting. Time Frame: Three Weeks Comprehension: 5 Expression: 5 Social Interaction: 5 Problem Solvin Memory: 4 Speech-Plan Treatment Plan Speech Therapy Treatment Plan: Continue Plan of Care Continue skilled speech pathology to target functional expression and comprehension. Treatment Duration: Feb 25, 2017 Frequency: Modified Program (IRF) (Four to five times per week.) Estimated Hrs Per Day: .5 hour per day Rehab Potential: Fair Safety Risks/Education Teaching Recipient: Patient Teaching Methods: Discussion Response to Teaching: Verbalize Understanding, Return Demonstration Education Topics Provided: Orientation Information, Use of External Orientation Aid Time Speech Therapy Time In: 08:30 Speech Therapy Time Out: 09:00 Total Billed Time: 30 Billed Treatment Time [address] Feb 07, 2017 10:11
--- NOTE | 2017-02-07 10:54 | Physical Therapy Daily Note ---
PT Daily Note-Current Subjective Pt laying R Side lying in bed upon arrival. Pt agrees to PT. Pain Location: No Pain Reported Mental Status Patient Orientation: Person, Place, Situation Transfers Functional [place] Measure 0=Not Assessed/NA 4=Minimal Assistance 1=Total Assistance 5=Supervision or Setup 2=Maximal Assistance 6=Modified [place] 3=Moderate Assistance 7=Complete IndependenceIRFPAI Quality Coding Scale 6 Independent with activity with or without an assistive device 5 Patient requires set up or clean up by helper. Patient completes activity by themselves 4 Supervision or touching assist (CGA). [place] provide cues , steadying assist 3 The helper provides less than half the effort to complete the activity 2 The helper provides more than half the effort to complete the activity 1 Dependent. The helper does all the effort to complete an activity 7 Patient refused to complete or attempt activity 9 The patient did not perform the activity before the current illness or injury 88 Not attempted due to Medical conditions or safety concerns Scootin Supine to/from Sit: 5 Sit to/from Stand: 5 Sit to Stand (QC): 5 Weight Bearing Right Lower Extremity: Right Full Weight Bearing Left Lower Extremity: Left Full Weight Bearing Gait Training Does the Patient Walk?: Yes Distance (FIM): 3=150 ft Distance: 250' Walk 10 feet (QC): 4 Walk 50 ft with 2 Turns(QC): 4 Walk 150 ft (QC): 4 Gait Level of Assist: 4 Gait Persons Needed: 1 Gait Assistive Device: None Attempted to walk w/o FWW, Pt focuses on not shuffling feet but picking them up instead. PT is CGA for safety. Pt has no LOB but does drift slightly L. Wheelchair Training Does the Pt Use a Wheelchair?: No Stair Training Stair Training: Handrails/: 1 handrail #of Steps: 12 1 Step (curb) (QC): 5 4 Steps (QC): 5 12 Steps (QC): 5 Stairs: Pattern: Step to Level of Assist: 5 Exercises Seated Therapy Exercises: Sit to stand NuStep Minutes: 12 NuStep Workload: 6 Treatments Pt transfers from Supine to EOB to Standing using FWW at [facility]. Pt ambulates in hallway using FWW at [facility]. Pt uses NuStep for 12m at Workload 6 as well as 3 sets of 4 stairs. Pt ambulates a little more in hallway w/o AD at CGA before returning to room to rest at EOB. Pt rests with all needs met at end of tx. Pt has bed alarm set. Assessment Current Status: Good Progress Pt is making improvement with independence and safety with transfers and ambulation. Pt still has to really focus on not shuffling during gait. PT Short Term Goals Short Term Goals Time Frame: Feb 10, 2017 Transfers (B,C,W/C) (FIM): 6 Gait (FIM): 4 Gait Distance Comment: 200' Gait Level of Assist: 4 Gait Assistive Device: FWW PT Bobtail Driver Goals Bobtail Driver Goals PT Bobtail Driver Goals Time Frame: Feb 24, 2017 Transfers (B,C,W/C) (FIM): 7 Sit to Lying (QC): 6 Lying-Sitting on Side/Bed(QC): 6 Sit to Stand (QC): 6 Rollin Roll Left to Right (QC): 6 Chair/Lmr-sa-Iwyoj Xfer(QC): 6 Car Transfer (QC): 4 (SBA) Does the Patient Walk: No and Walking Goal IS indicated Gait (FIM): 6 Gait distance (FIM): 3=150 ft Walk 10 feet (QC): 6 Walk 10ft-Uneven Surface(QC): 6 Walk 50ft with 2 Turns (QC): 6 Walk 150 ft (QC): 6 Gait Level of Assist: 6 Gait Assistive Device: FWW Stairs (FIM): 5 # of Steps: 12 1 Step (curb) (QC): 4 4 Steps (QC): 4 12 Steps (QC): 4 Stairs Level Of Assist: 5 Picking up an Object (QC): 4 PT Plan Problem List Problem List: Activity Tolerance, Functional Strength, Safety, Balance, Gait Treatment/Plan Treatment Plan: Continue Plan of Care Treatment Plan: Bed Mobility, Education, Functional Activity Sheila, Functional Strength, Group Therapy, Gait, Safety, Therapeutic Exercise, Transfers Treatment Duration: Feb 24, 2017 Frequency: At least 5 of 7 days/Wk (IRF) Estimated Hrs Per Day: 1.5 hours per day Patient and/or Family Agrees t: Yes Safety Risks/Education Patient Education: Gait Training, Transfer Techniques, Correct Positioning, Safety Issues Teaching Recipient: Patient Teaching Methods: Discussion Response to Teaching: Verbalize Understanding Time/GCodes Time In: 915 Time Out: 1000 Total Billed Treatment Time: 45 Total Billed Treatment visit, EX (15m) & GT x2 (30m) CORAZON DE LA CRUZ ACTIVE DIRECTORY ADMINISTRATOR Feb 07, 2017 10:54
--- NOTE | 2017-02-07 14:27 | Physical Therapy Daily Note ---
PT Daily Note-Current Subjective Pt laying R sidelying upon arrival. Pt agreed to PT. Pain Location: No Pain Reported Mental Status Patient Orientation: Person, Place, Situation Transfers Functional [place] Measure 0=Not Assessed/NA 4=Minimal Assistance 1=Total Assistance 5=Supervision or Setup 2=Maximal Assistance 6=Modified [place] 3=Moderate Assistance 7=Complete IndependenceIRFPAI Quality Coding Scale 6 Independent with activity with or without an assistive device 5 Patient requires set up or clean up by helper. Patient completes activity by themselves 4 Supervision or touching assist (CGA). [place] provide cues , steadying assist 3 The helper provides less than half the effort to complete the activity 2 The helper provides more than half the effort to complete the activity 1 Dependent. The helper does all the effort to complete an activity 7 Patient refused to complete or attempt activity 9 The patient did not perform the activity before the current illness or injury 88 Not attempted due to Medical conditions or safety concerns Scootin Rollin Roll Left to Right (QC): 5 Supine to/from Sit: 5 Sit to/from Stand: 5 Sit to Stand (QC): 5 Weight Bearing Right Lower Extremity: Right Full Weight Bearing Left Lower Extremity: Left Full Weight Bearing Gait Training Does the Patient Walk?: Yes Distance (FIM): 3=150 ft Distance: 150' Walk 10 feet (QC): 5 Walk 50 ft with 2 Turns(QC): 5 Walk 150 ft (QC): 5 Gait Level of Assist: 5 Gait Persons Needed: 1 Gait Assistive Device: None Wheelchair Training Does the Pt Use a Wheelchair?: No Exercises Seated Therapy Exercises: Ankle pumps, Long arc quads, Hip flexion, Kicking activity, Hip abd/add Seated Reps: 20 Treatments Pt transfers from Sidelying to EOB to Standing at SBA. Pt ambulates in hallway w/o AD at close SBA for safety. Pt completes Seated Ex in chair. Pt returns to room to rest in bed at end of tx with all needs met. Assessment Current Status: Good Progress Pt is making progress with independence and safety of transfers and gait. Pt needs occasional VC to pick out hand feet to normalize gait instead of shuffling/ festinating gait. PT Short Term Goals Short Term Goals Time Frame: Feb 10, 2017 Transfers (B,C,W/C) (FIM): 6 Gait (FIM): 4 Gait Distance Comment: 200' Gait Level of Assist: 4 Gait Assistive Device: FWW PT Mixed Crop Farmer Goals Mixed Crop Farmer Goals PT Mixed Crop Farmer Goals Time Frame: Feb 24, 2017 Transfers (B,C,W/C) (FIM): 7 Sit to Lying (QC): 6 Lying-Sitting on Side/Bed(QC): 6 Sit to Stand (QC): 6 Rollin Roll Left to Right (QC): 6 Chair/Kmo-ru-Cjjuj Xfer(QC): 6 Car Transfer (QC): 4 (SBA) Does the Patient Walk: No and Walking Goal IS indicated Gait (FIM): 6 Gait distance (FIM): 3=150 ft Walk 10 feet (QC): 6 Walk 10ft-Uneven Surface(QC): 6 Walk 50ft with 2 Turns (QC): 6 Walk 150 ft (QC): 6 Gait Level of Assist: 6 Gait Assistive Device: FWW Stairs (FIM): 5 # of Steps: 12 1 Step (curb) (QC): 4 4 Steps (QC): 4 12 Steps (QC): 4 Stairs Level Of Assist: 5 Picking up an Object (QC): 4 PT Plan Problem List Problem List: Activity Tolerance, Functional Strength, Balance, Gait Treatment/Plan Treatment Plan: Continue Plan of Care Treatment Plan: Bed Mobility, Education, Functional Activity Sheila, Functional Strength, Group Therapy, Gait, Safety, Therapeutic Exercise, Transfers Treatment Duration: Feb 24, 2017 Frequency: At least 5 of 7 days/Wk (IRF) Estimated Hrs Per Day: 1.5 hours per day Patient and/or Family Agrees t: Yes Safety Risks/Education Patient Education: Gait Training, Transfer Techniques, Correct Positioning, Safety Issues Teaching Recipient: Patient Teaching Methods: Discussion Response to Teaching: Verbalize Understanding Time/GCodes Time In: 1330 Time Out: 1400 Total Billed Treatment Time: 30 Total Billed Treatment visit, GT (15m) & EX (15m) CORAZON DE LA CRUZ PTA Feb 07, 2017 14:27
--- NOTE | 2017-02-07 15:53 | Occupational Ther Daily Note ---
OT Current Status-Daily Note Subjective Pt. states that he is tired, but does not report pain. Appearance Pt. is sitting on side of bed when OT enters room. Agrees to work with OT. Mental Status/Objective Patient Orientation: Person, Place Functional [place] Measure 0=Not Assessed/NA 4=Minimal Assistance 1=Total Assistance 5=Supervision or Setup 2=Maximal Assistance 6=Modified [place] 3=Moderate Assistance 7=Complete [place] ADL-Treatment Functional [place] Measure 0=Not Assessed/NA 4=Minimal Assistance 1=Total Assistance 5=Supervision or Setup 2=Maximal Assistance 6=Modified [place] 3=Moderate Assistance 7=Complete IndependenceIRFPAI Quality Coding Scale 6 Independent with activity with or without an assistive device 5 Patient requires set up or clean up by helper. Patient completes activity by themselves 4 Supervision or touching assist (CGA). [place] provide cues , steadying assist 3 The helper provides less than half the effort to complete the activity 2 The helper provides more than half the effort to complete the activity 1 Dependent. The helper does all the effort to complete an activity 7 Patient refused to complete or attempt activity 9 The patient did not perform the activity before the current illness or injury 88 Not attempted due to Medical conditions or safety concerns Toileting (FIM): 5 (SBA to pull down/up pants and toilet self.) Toileting Hygiene (QC): 5 Transfers (B, C, W/C) (FIM): 4 (Pt. did require CGA at one time during ambulation due to "feeling funny." Please see note.) Toilet/Commode Transfer (FIM): 5 Toilet Transfer (QC): 5 Other Treatment Pt. has already dressed previously to OT entering room. Has already had physical therapy. States that he does not want to shower or spongebathe, as he is "too cold." However, he will work with OT in gym. Pt. does ambulate with OT to therapy gym and completes 10 minutes on armbike. Requires several rest breaks at min resistance. Tolerated treatment well. Pt. then donned 1 lb. wrist weights and completed simple peg task with alternating arms to increase overall strengthening. Pt. able to do this with increased time needed. Pt. requested to use bathroom. Ambulated back to room. Pt. able to transfer to toilet, toilet self, cleanse self, and transfer off with SBA. Ambulated back to gym and on the way pt. began to state that he felt "funny." OT got pt. chair and took his BP. BP is 160/89. Pt. stood and BP is 144/82. Pt. requests to lay down. Ambulated back to room. Pt. is able to get self into bed with increased time needed. All needs met. Education OT Patient Education: Correct positioning, Exercise program, Modified ADL techniques, Progress toward Goal/Update tx plan, Purpose of tx/functional activities, Reviewed precautions, Rehab process, Transfer techniques Teaching Recipient: Patient Teaching Methods: Demonstration Response to Teaching: Verbalize Understanding, Return Demonstration OT Short Term Goals Short Term Goals Time Frame: Feb 10, 2017 Transfers (B,C,W/C) (FIM): 6 Toilet/Commode Transfer(FIM): 5 Additional Short Term Goals: 2-Verbalize Understanding, 3-ImproveStrength/Sheila 1=Demonstrate adherence to instructed precautions during ADL tasks. 2=Patient will verbalize/demonstrate understanding of assistive devices/ modifications for ADL. 3=Patient will improve strength/tolerance for activity to enable patient to perform ADL's. OT Senior Living Goals Consulting It Architect Goals Time Frame: Feb 25, 2017 Eating (FIM): 6 Eating (QC): 6 Groomin Oral Hygiene (QC): 6 Bathing(FIM): 6 Shower/Bathe Self (QC): 6 Upper Body Dressing(FIM): 6 Upper Body Dressing (QC): 6 Lower Body Dressing(FIM): 6 Lower Body Dressing (QC): 6 On/Off Footwear (QC): 6 Toileting(FIM): 6 Toileting Hygiene (QC): 6 Toilet/Commode Transfer(FIM): 6 Toilet/Commode Transfer (QC): 6 Tub Transfer(FIM): 6 Shower Transfer(FIM): 6 Comprehension(FIM): 5 Expression (FIM): 5 Social Interaction(FIM): 5 Problem Solving(FIM): 4 Memory(FIM): 4 Additional Goals: 2-Verbalize Understanding, 3-ImproveStrength/Sheila 1=Demonstrate adherence to instructed precautions during ADL tasks. 2=Patient will verbalize/demonstrate understanding of assistive devices/ modifications for ADL. 3=Patient will improve strength/tolerance for activity to enable patient to perform ADL's. 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 Plan of Care: ADL Retraining, Functional Mobility, Group Exercise/Act as Ind ( education, exercise, socialization, activity tolerance, funct activities), UE Funct Exercise/Act, UE Neuromus Re-Ed/Coord Treatment Duration: Feb 25, 2017 Frequency: At least 5 of 7 days/Wk (IRF) Estimated Hrs Per Day: 1.5 hours per day Agreement: Yes Rehab Potential: Fair Time/GCodes Start Time: 10:00 Stop Time: 11:30 Total Time Billed (hr/min): 90 Billed Treatment Time 1, EX x 45minutes, FA x 30minutes, ADL x 15minutes OTILIO MARVIN OT Feb 07, 2017 15:53
[2017-02-07] MEDS: ENOXAPARIN 40 MG/0.4 ML (LOVENOX) SYR SC SCH (16:04)
[2017-02-07] MEDS: MILK OF MAGNESIA 400 MG/5 ML 30 ML UDC PO PRN (18:03)
[2017-02-07] MEDS: ATORVASTATIN 40 MG (LIPITOR) TABLET PO SCH (21:39)
[2017-02-08] VITALS: BP 159/75
[2017-02-08 04:00] VITALS: BP 157/73
[2017-02-08] MEDS: BISACODYL 10 MG SUPP (DULCOLAX) PR SCH ×2 (05:37→21:10)
[2017-02-08] MEDS: SINEMET 25/100 (CARBIDOPA/LEVODOPA) TAB PO SCH ×3 (06:15→16:23)
[2017-02-08] MEDS: LACTULOSE SYRUP 10GM/15ML (ENULOSE) 30ML UDC PO SCH ×2 (08:16→21:10)
[2017-02-08] MEDS: PHENAZOPYRIDINE 100 MG (PYRIDIUM) TABLET PO SCH ×2 (08:16→21:10)
[2017-02-08] MEDS: amLODIPine 5 MG (NORVASC) TAB PO SCH (08:17)
[2017-02-08] MEDS: FOLIC ACID 1 MG TAB PO SCH (08:17)
[2017-02-08] MEDS: DOCUSATE SODIUM 100 MG (COLACE) CAP PO SCH ×2 (08:17→21:10)
[2017-02-08] MEDS: lisINopril 10 MG (PRINIVIL) TAB PO SCH (08:17)
[2017-02-08] MEDS: FAMOTIDINE 20 MG (PEPCID) TABLET PO SCH ×2 (08:17→21:10)
[2017-02-08] MEDS: ASPIRIN 81 MG CHEW (CHILDREN'S ASA) PO SCH (08:17)
--- NOTE | 2017-02-08 08:48 | Progress Note (SOAP) ---
Subjective Time Seen by Provider: 08:45 Subjective/Events-last exam CVA. Parkinson disease. Patient not moving his fingers them much. Patient is improving. Speech is doing better Objective Exam Vital Signs Date Time Temp Pulse Resp B/P (MAP) Pulse Ox O2 Delivery O2 Flow Rate FiO2 02/08/17 04:00 99.1 75 18 157/73 96 Room Air 02/08/17 00:00 99.1 72 18 159/75 95 Room Air 02/07/17 21:00 Room Air 02/07/17 20:00 98.9 74 18 142/78 96 Room Air 02/07/17 18:06 99.0 71 18 145/84 98 Room Air 02/07/17 13:00 98.5 72 20 131/74 97 Room Air 02/07/17 11:20 83 20 144/82 98 Room Air 02/07/17 10:15 Room Air Capillary Refill : General Appearance: No Apparent Distress, Thin Assessment/Plan Assessment/Plan Assess & Plan/Chief Complaint CVA. Hypertension. Parkinson disease. Patient's blood pressure elevated put on lisinopril. . 02/07/17. CVA. Hypertension. Parkinson disease. Constipation. Patient feels better after having a bowel movement.. . 02/08/17. CVA. Hypertension. Parkinson Disease. Patient's answer doing better. Speech is improving Clinical Quality Measures DVT/VTE Risk/Contraindication: Risk Factor Score Per Nursin RFS Level Per Nursing on Admit: 4+=Very High RODO ROCHA DO Feb 08, 2017 08:48
--- NOTE | 2017-02-08 09:06 | Speech Therapy Daily Note ---
Speech Daily Progress Note Subjective Date Seen by Provider: Feb 08, 2017 Time Seen by Provider: 08:30 The patient was seated at edge of bed upon entrance. The patient greeted the clinician appropriately and was agreeable to participation in language, voice, and cognitive treatment on this date. Objective Adduction Exercises: Vocal Fold Adduction Exercises were initiated on this date to improve functional breath support, as well as, appropriate volume for communication. The patient displayed high accuracy with exercises, following an initial direct modeling example by the clinician. With mild cueing, ten repetitions of each exercise were performed. The patient is able to display adequate intensity levels with verbal prompting from the clinician. Assessment Assessment Current Status: Good Progress Treatment Plan Continue Plan of Care Communication Comprehension: 4 Expression: 4 Social Cognition Social Interaction: 5 Problem Solvin Memory: 3 Speech Short Term Goals Short Term Goals Short Term Goals 1. The patient will recall and demonstrate three functional memory strategies for use at home with mild clinician verbal cueing. 2. The patient will recall three items from a recently presented article/text with 80% accuracy. Time Frame-STG: Two Weeks Speech Jail Goals Jail Goals 1. The patient will display improved cognitive linguistic skills for increased safety and function with ADL's in the least restrictive setting. Time Frame: Three Weeks Comprehension: 5 Expression: 5 Social Interaction: 5 Problem Solvin Memory: 4 Speech-Plan Treatment Plan Speech Therapy Treatment Plan: Continue Plan of Care Continue skilled speech pathology to target improved vocal intensity, as well as , functional memory strategies. Treatment Duration: Feb 25, 2017 Frequency: Modified Program (IRF) (Four to five times per week.) Estimated Hrs Per Day: .5 hour per day Rehab Potential: Fair Safety Risks/Education Teaching Recipient: Patient Teaching Methods: Demonstration, Handout, Discussion Response to Teaching: Verbalize Understanding, Return Demonstration Education Topics Provided: Adductor Fold Exercises Time Speech Therapy Time In: 08:30 Speech Therapy Time Out: 09:00 Total Billed Time: 30 Billed Treatment Time 1, BOOGIEMEETA GOMEZSalbadorTAI ST Feb 08, 2017 09:06
--- NOTE | 2017-02-08 11:51 | Physical Therapy Daily Note ---
PT Daily Note-Current Subjective Pt laying Supine in bed upon arrival. Pt agrees to PT. Pain Location: No Pain Reported Mental Status Patient Orientation: Person, Place, Situation Transfers Functional [place] Measure 0=Not Assessed/NA 4=Minimal Assistance 1=Total Assistance 5=Supervision or Setup 2=Maximal Assistance 6=Modified [place] 3=Moderate Assistance 7=Complete IndependenceIRFPAI Quality Coding Scale 6 Independent with activity with or without an assistive device 5 Patient requires set up or clean up by helper. Patient completes activity by themselves 4 Supervision or touching assist (CGA). [place] provide cues , steadying assist 3 The helper provides less than half the effort to complete the activity 2 The helper provides more than half the effort to complete the activity 1 Dependent. The helper does all the effort to complete an activity 7 Patient refused to complete or attempt activity 9 The patient did not perform the activity before the current illness or injury 88 Not attempted due to Medical conditions or safety concerns Scootin Supine to/from Sit: 5 Sit to/from Stand: 5 Sit to Stand (QC): 5 Weight Bearing Right Lower Extremity: Right Full Weight Bearing Left Lower Extremity: Left Full Weight Bearing Gait Training Does the Patient Walk?: Yes Distance (FIM): 3=150 ft Distance: 200' Walk 10 feet (QC): 4 Walk 50 ft with 2 Turns(QC): 4 Walk 150 ft (QC): 4 Gait Level of Assist: 4 Gait Persons Needed: 1 Gait Assistive Device: None Pt has occasional LOB that PT and pt are able to correct. Pt sways slightly side to side with ambulation. Pt focusing on picking up feet instead of shuffling. Wheelchair Training Does the Pt Use a Wheelchair?: No Exercises Seated Therapy Exercises: Ankle pumps, Long arc quads, Hip flexion, Kicking activity, Hip abd/add Seated Reps: 20 Treatments Pt transfers from Supine in bed to EOB to standing w/o AD and at SBA. Pt ambulates in hallway w/o AD at CGA-close SBA for safety. Pt completes Seated EX in chair for strengthening. Pt returns to room to use restroom and rest at EOB at end of tx with all needs met. PT sets bed alarm for standing from bed for safety. Assessment Current Status: Fair Progress Pt had a little more difficulty with keeping balance today than yesterday. Pt a little more fatigued. PT Short Term Goals Short Term Goals Time Frame: Feb 10, 2017 Transfers (B,C,W/C) (FIM): 6 Gait (FIM): 4 Gait Distance Comment: 200' Gait Level of Assist: 4 Gait Assistive Device: FWW PT Receiver Goals Assisted Goals PT Assisted Goals Time Frame: Feb 24, 2017 Transfers (B,C,W/C) (FIM): 7 Sit to Lying (QC): 6 Lying-Sitting on Side/Bed(QC): 6 Sit to Stand (QC): 6 Rollin Roll Left to Right (QC): 6 Chair/Ivt-ic-Gkrxi Xfer(QC): 6 Car Transfer (QC): 4 (SBA) Does the Patient Walk: No and Walking Goal IS indicated Gait (FIM): 6 Gait distance (FIM): 3=150 ft Walk 10 feet (QC): 6 Walk 10ft-Uneven Surface(QC): 6 Walk 50ft with 2 Turns (QC): 6 Walk 150 ft (QC): 6 Gait Level of Assist: 6 Gait Assistive Device: FWW Stairs (FIM): 5 # of Steps: 12 1 Step (curb) (QC): 4 4 Steps (QC): 4 12 Steps (QC): 4 Stairs Level Of Assist: 5 Picking up an Object (QC): 4 PT Plan Problem List Problem List: Activity Tolerance, Functional Strength, Safety, Balance, Gait Treatment/Plan Treatment Plan: Continue Plan of Care Treatment Plan: Bed Mobility, Education, Functional Activity Sheila, Functional Strength, Group Therapy, Gait, Safety, Therapeutic Exercise, Transfers Treatment Duration: Feb 24, 2017 Frequency: At least 5 of 7 days/Wk (IRF) Estimated Hrs Per Day: 1.5 hours per day Patient and/or Family Agrees t: Yes Safety Risks/Education Patient Education: Gait Training, Transfer Techniques, Correct Positioning, Safety Issues Teaching Recipient: Patient Teaching Methods: Discussion Response to Teaching: Verbalize Understanding Time/GCodes Time In: 1100 Time Out: 1145 Total Billed Treatment Time: 45 Total Billed Treatment visit, GT (15m), EX (15m) & FA (15m) CORAZON DE LA CRUZ CLINICAL PROGRAM CONSULTANT Feb 08, 2017 11:51
--- NOTE | 2017-02-08 12:50 | Occupational Ther Daily Note ---
OT Current Status-Daily Note Subjective Pt was sitting EOB when therapist arrived. Pt requested to shower if the bathroom could be warmer. Pt had no c/o pain. Pain Numeric Pain Scale: 0-No Pain Mental Status/Objective Functional [place] Measure 0=Not Assessed/NA 4=Minimal Assistance 1=Total Assistance 5=Supervision or Setup 2=Maximal Assistance 6=Modified [place] 3=Moderate Assistance 7=Complete [place] ADL-Treatment Pt walked SBA, FWW to and from bathroom. All ADLs took longer than usual. Pt left up at EOB, all needs met. Functional [place] Measure 0=Not Assessed/NA 4=Minimal Assistance 1=Total Assistance 5=Supervision or Setup 2=Maximal Assistance 6=Modified [place] 3=Moderate Assistance 7=Complete IndependenceIRFPAI Quality Coding Scale 6 Independent with activity with or without an assistive device 5 Patient requires set up or clean up by helper. Patient completes activity by themselves 4 Supervision or touching assist (CGA). [place] provide cues , steadying assist 3 The helper provides less than half the effort to complete the activity 2 The helper provides more than half the effort to complete the activity 1 Dependent. The helper does all the effort to complete an activity 7 Patient refused to complete or attempt activity 9 The patient did not perform the activity before the current illness or injury 88 Not attempted due to Medical conditions or safety concerns Grooming (FIM): 5 (Pt requires SBA, FWW for standing at sink for teeth brushing and hair brushing. Washed face and hands in shower) Bathing (FIM): 5 (Pt requires SBA when standing to wash. Pt washed and dried all parts, using shower bench, grab bars, hand held shower. Turned water on and off himself but otherwise setup. Pt was observed to wash some body parts more than one time.) Upper Body (FIM): 5 (Pt stood to complete UB dressing, requiring SBA, FWW. managed buttons without assistance. Setup) Lower Body Dressing (FIM): 5 (Pt requires SBA, FWW for completing LB dressing. Setup. Slip on shoes) Toileting (FIM): 5 (Pt stood to complete gonzalez care and managed clothing, requiring SBA. FWW, grab bars, tall toilet) Transfers (B, C, W/C) (FIM): 5 (Pt requires SBA for all transfers for safety. FWW) Toilet/Commode Transfer (FIM): 5 (Pt requires SBA for transfers. FWW, grab bars , tall toilet) Shower Transfer(FIM): 5 (Pt requires SBA for all transfers. FWW, shower bench, grab bars) Education OT Patient Education: Progress toward Goal/Update tx plan, Safety issues, Transfer techniques Teaching Recipient: Patient Teaching Methods: Discussion Response to Teaching: Verbalize Understanding OT Short Term Goals Short Term Goals Time Frame: Feb 10, 2017 Transfers (B,C,W/C) (FIM): 6 Toilet/Commode Transfer(FIM): 5 Additional Short Term Goals: 2-Verbalize Understanding, 3-ImproveStrength/Sheila 1=Demonstrate adherence to instructed precautions during ADL tasks. 2=Patient will verbalize/demonstrate understanding of assistive devices/ modifications for ADL. 3=Patient will improve strength/tolerance for activity to enable patient to perform ADL's. OT Insurance Commissioner Goals [facility] Goals Time Frame: Feb 25, 2017 Eating (FIM): 6 Eating (QC): 6 Groomin Oral Hygiene (QC): 6 Bathing(FIM): 6 Shower/Bathe Self (QC): 6 Upper Body Dressing(FIM): 6 Upper Body Dressing (QC): 6 Lower Body Dressing(FIM): 6 Lower Body Dressing (QC): 6 On/Off Footwear (QC): 6 Toileting(FIM): 6 Toileting Hygiene (QC): 6 Toilet/Commode Transfer(FIM): 6 Toilet/Commode Transfer (QC): 6 Tub Transfer(FIM): 6 Shower Transfer(FIM): 6 Comprehension(FIM): 5 Expression (FIM): 5 Social Interaction(FIM): 5 Problem Solving(FIM): 4 Memory(FIM): 4 Additional Goals: 2-Verbalize Understanding, 3-ImproveStrength/Sheila 1=Demonstrate adherence to instructed precautions during ADL tasks. 2=Patient will verbalize/demonstrate understanding of assistive devices/ modifications for ADL. 3=Patient will improve strength/tolerance for activity to enable patient to perform ADL's. 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 Plan of Care: ADL Retraining, Functional Mobility, Group Exercise/Act as Ind ( education, exercise, socialization, activity tolerance, funct activities), UE Funct Exercise/Act, UE Neuromus Re-Ed/Coord Treatment Duration: Feb 25, 2017 Frequency: At least 5 of 7 days/Wk (IRF) Estimated Hrs Per Day: 1.5 hours per day Agreement: Yes Rehab Potential: Fair Time/GCodes Start Time: 10:00 Stop Time: 11:00 Total Time Billed (hr/min): 60 Billed Treatment Time visit, 60 minutes ADL SHIVAM NAVA OT Feb 08, 2017 12:50
--- NOTE | 2017-02-08 14:51 | Therapy Group Daily Note ---
Therapy Daily Group Note Exercises LE Seated Exercise, UE Exercise Other/Notes Pt was an active participant in OT/PT group. He introduced himself by identifying states that he has visited. He contributed to group discussion during [place] history and geography activity but was overall very quiet. He did seated UE and LE exercises, modifying them as needed because of his Parkinsons. He walked back to his room with SBA for safety, FWW and was left up at EOB, all needs met (he declined toileting). Start Time: 13:00 Stop Time: 14:05 Total Billed Treatment Time: 65 Total Billed Treatment visit, 65 minutes group SHIVAM NAVA OT Feb 08, 2017 14:51
[2017-02-08] MEDS: ENOXAPARIN 40 MG/0.4 ML (LOVENOX) SYR SC SCH (16:22)
[2017-02-08 18:20] VITALS: BP 119/75
[2017-02-08] MEDS: ATORVASTATIN 40 MG (LIPITOR) TABLET PO SCH (21:10)
--- NOTE | 2017-02-08 21:50 | PM & R (SOAP) Progress Note ---
Subjective Time Seen by Provider: 21:45 Subjective/Events-last exam Patient was seen in his room this evening Patient voiding well but having some complaints of constipation -Meds being adjusted Patient SBA for transfers Review of Systems Gastrointestinal: Constipation Neurological: Weakness, Other (difficulty with balance) Objective Exam Last Set of Vital Signs Vital Signs Date Time Temp Pulse Resp B/P (MAP) Pulse Ox O2 Delivery O2 Flow Rate FiO2 02/08/17 19:04 Room Air 02/08/17 18:20 98.2 75 16 119/75 96 02/06/17 15:04 96 Capillary Refill : I&O Intake and Output 02/09/17 00:00 Intake Total 1430 ml Output Total 2300 ml Balance -870 ml Intake Oral 1430 ml Output Urine Total 2300 ml # Bowel Movements 2 General: Alert, Oriented X3, Cooperative, No Acute Distress HEENT: Atraumatic, PERRLA, EOMI, Mucous Memb Moist/[place] Neck: Supple, No JVD Lungs: Clear to Auscultation Heart: Regular Rate Abdomen: Normal Bowel Sounds, Soft, No Tenderness Extremities: No Edema Neuro: Other (good strength mildly impaired balance ) Assessment/Plan Assessment 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
[2017-02-09] MEDS: SINEMET 25/100 (CARBIDOPA/LEVODOPA) TAB PO SCH ×3 (06:25→17:07)
[2017-02-09] MEDS: ASPIRIN 81 MG CHEW (CHILDREN'S ASA) PO SCH (07:56)
[2017-02-09] MEDS: lisINopril 10 MG (PRINIVIL) TAB PO SCH (07:56)
[2017-02-09] MEDS: FOLIC ACID 1 MG TAB PO SCH (07:56)
[2017-02-09] MEDS: DOCUSATE SODIUM 100 MG (COLACE) CAP PO SCH ×2 (07:56→20:51)
[2017-02-09] MEDS: LACTULOSE SYRUP 10GM/15ML (ENULOSE) 30ML UDC PO SCH ×2 (07:56→20:51)
[2017-02-09] MEDS: PHENAZOPYRIDINE 100 MG (PYRIDIUM) TABLET PO SCH ×2 (07:57→20:51)
[2017-02-09] MEDS: FAMOTIDINE 20 MG (PEPCID) TABLET PO SCH ×2 (07:57→20:51)
[2017-02-09] MEDS: BISACODYL 10 MG SUPP (DULCOLAX) PR SCH ×2 (07:57→20:52)
[2017-02-09] MEDS: amLODIPine 5 MG (NORVASC) TAB PO SCH (07:57)
--- NOTE | 2017-02-09 08:45 | Progress Note (SOAP) ---
Subjective Time Seen by Provider: 08:40 Subjective/Events-last exam CVA. Parkinson disease. Patient improving. Patient feel he is improving with the medicine. Patient using walker to get around Objective Exam Vital Signs Date Time Temp Pulse Resp B/P (MAP) Pulse Ox O2 Delivery O2 Flow Rate FiO2 02/08/17 21:00 Room Air 02/08/17 19:04 Room Air 02/08/17 18:20 98.2 75 16 119/75 96 Room Air Capillary Refill : General Appearance: No Apparent Distress, Thin HEENT: Normal ENT Inspection Neck: Full Range of Motion, Normal Inspection Respiratory: Chest Non Tender, No Accessory Muscle Use, No Respiratory Distress Cardiovascular: Regular Rate, Rhythm, No Murmur Assessment/Plan Assessment/Plan Assess & Plan/Chief Complaint CVA. Hypertension. Parkinson disease. Patient's blood pressure elevated put on lisinopril. . 02/07/17. CVA. Hypertension. Parkinson disease. Constipation. Patient feels better after having a bowel movement.. . 02/08/17. CVA. Hypertension. Parkinson Disease. Patient's answer doing better. Speech is improving. . 02/09/17. CVA. Hypertension. Parkinson disease better. Patient speech better. Clinical Quality Measures DVT/VTE Risk/Contraindication: Risk Factor Score Per Nursin RFS Level Per Nursing on Admit: 4+=Very High RODO ROCHA DO Feb 09, 2017 08:45
--- NOTE | 2017-02-09 09:32 | Physical Therapy Daily Note ---
PT Daily Note-Current Subjective Pt sitting at EOB upon arrival. Pt agrees to PT. Pain Location: No Pain Reported Mental Status Patient Orientation: Person, Place, Situation Transfers Functional [place] Measure 0=Not Assessed/NA 4=Minimal Assistance 1=Total Assistance 5=Supervision or Setup 2=Maximal Assistance 6=Modified [place] 3=Moderate Assistance 7=Complete IndependenceIRFPAI Quality Coding Scale 6 Independent with activity with or without an assistive device 5 Patient requires set up or clean up by helper. Patient completes activity by themselves 4 Supervision or touching assist ([facility]). [place] provide cues , steadying assist 3 The helper provides less than half the effort to complete the activity 2 The helper provides more than half the effort to complete the activity 1 Dependent. The helper does all the effort to complete an activity 7 Patient refused to complete or attempt activity 9 The patient did not perform the activity before the current illness or injury 88 Not attempted due to Medical conditions or safety concerns Scootin Rollin Roll Left to Right (QC): 5 Supine to/from Sit: 5 Sit to/from Stand: 5 Sit to Lying (QC): 5 Sit to Stand (QC): 5 Weight Bearing Right Lower Extremity: Right Full Weight Bearing Left Lower Extremity: Left Full Weight Bearing Gait Training Does the Patient Walk?: Yes Distance (FIM): 3=150 ft Distance: 150' Walk 10 feet (QC): 4 Walk 50 ft with 2 Turns(QC): 4 Walk 150 ft (QC): 4 Gait Level of Assist: 4 Gait Persons Needed: 1 Gait Assistive Device: FWW Pt started ambulation w/o AD and PT at [facility]-close SBA. Pt felt more comfortable walking w/FWW so finished ambualtion w/FWW at A. Pt fatigues and needs a short rest break. Wheelchair Training Does the Pt Use a Wheelchair?: No Exercises Seated Therapy Exercises: Ankle pumps, Long arc quads, Hip flexion, Kicking activity Seated Reps: 20 NuStep Minutes: 10 NuStep Workload: 5 Treatments Pt transfers from EOB at SBA then ambulates in hallway w/o AD at [facility]. Pt uses NuStep for 10m at Workload 5 followed by Seated Ex in chair. Pt returned to room to use restroom and rest at EOB at end of tx with all needs met, call light given and bed alarm for standing set. Assessment Current Status: Good Progress Pt is getting stronger although still having occasional LOB but able to self- correct. Pt is not always socially aware of safety concerns and sometimes uses restroom on own. PT Short Term Goals Short Term Goals Time Frame: Feb 10, 2017 Transfers (B,C,W/C) (FIM): 6 Gait (FIM): 4 Gait Distance Comment: 200' Gait Level of Assist: 4 Gait Assistive Device: FWW PT Yard Truck Driver Goals [facility] Goals PT Yard Truck Driver Goals Time Frame: Feb 24, 2017 Transfers (B,C,W/C) (FIM): 7 Sit to Lying (QC): 6 Lying-Sitting on Side/Bed(QC): 6 Sit to Stand (QC): 6 Rollin Roll Left to Right (QC): 6 Chair/Lep-ib-Tcrcu Xfer(QC): 6 Car Transfer (QC): 4 (SBA) Does the Patient Walk: No and Walking Goal IS indicated Gait (FIM): 6 Gait distance (FIM): 3=150 ft Walk 10 feet (QC): 6 Walk 10ft-Uneven Surface(QC): 6 Walk 50ft with 2 Turns (QC): 6 Walk 150 ft (QC): 6 Gait Level of Assist: 6 Gait Assistive Device: FWW Stairs (FIM): 5 # of Steps: 12 1 Step (curb) (QC): 4 4 Steps (QC): 4 12 Steps (QC): 4 Stairs Level Of Assist: 5 Picking up an Object (QC): 4 PT Plan Problem List Problem List: Activity Tolerance, Functional Strength, Safety, Balance, Gait Treatment/Plan Treatment Plan: Continue Plan of Care Treatment Plan: Bed Mobility, Education, Functional Activity Sheila, Functional Strength, Group Therapy, Gait, Safety, Therapeutic Exercise, Transfers Treatment Duration: Feb 24, 2017 Frequency: At least 5 of 7 days/Wk (IRF) Estimated Hrs Per Day: 1.5 hours per day Patient and/or Family Agrees t: Yes Safety Risks/Education Patient Education: Gait Training, Transfer Techniques, Correct Positioning, Safety Issues Teaching Recipient: Patient Teaching Methods: Discussion Response to Teaching: Reinforcement Needed Time/GCodes Time In: 845 Time Out: 930 Total Billed Treatment Time: 45 Total Billed Treatment visit, GT (15m) & EX x2 (30m) CORAZON DE LA CRUZ PTA Feb 09, 2017 09:32
--- NOTE | 2017-02-09 10:21 | Speech Therapy Daily Note ---
Speech Daily Progress Note Subjective Date Seen by Provider: Feb 09, 2017 Time Seen by Provider: 08:15 The patient was seated at the edge of bed upon entrance. The patient greeted the clinician appropriately and was agreeable to participation in the cognitive treatment session. Objective Functional Memory Strategies: Functional memory strategies (external) were discussed and introduced on this date. Per patient, he consistently uses a calendar, which he leaves by his kitchen door, where he places important appointments and information. The patient reports he passes the calendar multiple times per day. Additionally, the patient uses a pill box to keep medication and daily vitamins. The patient stated he organizes his pill box each Tuesday. The patient stated he intermittently has his place an alarm on days he has doctors appointments and scheduled obligations. The patient acknowledged the importance of writing down important dates and consistently organizing his pill box. Assessment Assessment Current Status: Good Progress Treatment Plan Continue Plan of Care Communication Comprehension: 4 Expression: 4 Social Cognition Social Interaction: 5 Problem Solvin Memory: 4 Speech Short Term Goals Short Term Goals Short Term Goals 1. The patient will recall and demonstrate three functional memory strategies for use at home with mild clinician verbal cueing. 2. The patient will recall three items from a recently presented article/text with 80% accuracy. Time Frame-STG: Two Weeks Speech Catering Director Goals Custodial Goals 1. The patient will display improved cognitive linguistic skills for increased safety and function with ADL's in the least restrictive setting. Time Frame: Three Weeks Comprehension: 5 Expression: 5 Social Interaction: 5 Problem Solvin Memory: 4 Speech-Plan Treatment Plan Speech Therapy Treatment Plan: Continue Plan of Care Continue skilled speech pathology to target functional problem solving and memory strategies. Treatment Duration: Feb 25, 2017 Frequency: Modified Program (IRF) (Four to five times per week.) Estimated Hrs Per Day: .5 hour per day Rehab Potential: Fair Safety Risks/Education Teaching Recipient: Patient Teaching Methods: Discussion Response to Teaching: Verbalize Understanding Education Topics Provided: Memory Strategies Time Speech Therapy Time In: 08:15 Speech Therapy Time Out: 08:45 Total Billed Time: 30 Billed Treatment Time REBEKAH Branham [facility] Feb 09, 2017 10:21
--- NOTE | 2017-02-09 11:35 | Occupational Ther Daily Note ---
OT Current Status-Daily Note Subjective Pt seen in room, up in bathroom, agreeable to OT. No pain mentioned. Appearance Alert, cooperative Mental Status/Objective Functional [place] Measure 0=Not Assessed/NA 4=Minimal Assistance 1=Total Assistance 5=Supervision or Setup 2=Maximal Assistance 6=Modified [place] 3=Moderate Assistance 7=Complete [place] ADL-Treatment Pt toileted at beginning and end of tx. he declined to change clothes or bathe and said that he had already brushed his teeth. Functional [place] Measure 0=Not Assessed/NA 4=Minimal Assistance 1=Total Assistance 5=Supervision or Setup 2=Maximal Assistance 6=Modified [place] 3=Moderate Assistance 7=Complete IndependenceIRFPAI Quality Coding Scale 6 Independent with activity with or without an assistive device 5 Patient requires set up or clean up by helper. Patient completes activity by themselves 4 Supervision or touching assist (CGA). [place] provide cues , steadying assist 3 The helper provides less than half the effort to complete the activity 2 The helper provides more than half the effort to complete the activity 1 Dependent. The helper does all the effort to complete an activity 7 Patient refused to complete or attempt activity 9 The patient did not perform the activity before the current illness or injury 88 Not attempted due to Medical conditions or safety concerns Toileting (FIM): 5 (Managed clothing and hygiene, with general supervision. Tall toilet, FWW, grab bar) Toilet/Commode Transfer (FIM): 5 (managed toilet transfer with general supervision. tall toilet, grab bar, FWW) Other Treatment Pt walked with SBA for safety and FWW to gym, at a slow but steady pace, with no LOB observed. He did 12 minutes on arm bike set at 20W resistance (increased 2 minutes), for bilat UE strengthening for assistance with transfers, ADLs and activity tolerance. He also did bilat UE activities with 1# weight on each arm, including nuts and bolts. He was given written instructions on bilat UE theraband exercises and did 10 reps of each, using red theraband (medium resistance). Pt educ on the different exercises and occas skilled cues to do them correctly. Pt walked back to his room with SBA, FWW, toileted and was left seated at OB, all needs met. Education OT Patient Education: Exercise program, Progress toward Goal/Update tx plan, Purpose of tx/functional activities Teaching Recipient: Patient Teaching Methods: Demonstration, Discussion Response to Teaching: Verbalize Understanding, Return Demonstration OT Short Term Goals Short Term Goals Time Frame: Feb 10, 2017 Transfers (B,C,W/C) (FIM): 6 Toilet/Commode Transfer(FIM): 5 Additional Short Term Goals: 2-Verbalize Understanding, 3-ImproveStrength/Sheila 1=Demonstrate adherence to instructed precautions during ADL tasks. 2=Patient will verbalize/demonstrate understanding of assistive devices/ modifications for ADL. 3=Patient will improve strength/tolerance for activity to enable patient to perform ADL's. OT Mcc Goals Mcc Goals Time Frame: Feb 25, 2017 Eating (FIM): 6 Eating (QC): 6 Groomin Oral Hygiene (QC): 6 Bathing(FIM): 6 Shower/Bathe Self (QC): 6 Upper Body Dressing(FIM): 6 Upper Body Dressing (QC): 6 Lower Body Dressing(FIM): 6 Lower Body Dressing (QC): 6 On/Off Footwear (QC): 6 Toileting(FIM): 6 Toileting Hygiene (QC): 6 Toilet/Commode Transfer(FIM): 6 Toilet/Commode Transfer (QC): 6 Tub Transfer(FIM): 6 Shower Transfer(FIM): 6 Comprehension(FIM): 5 Expression (FIM): 5 Social Interaction(FIM): 5 Problem Solving(FIM): 4 Memory(FIM): 4 Additional Goals: 2-Verbalize Understanding, 3-ImproveStrength/Sheila 1=Demonstrate adherence to instructed precautions during ADL tasks. 2=Patient will verbalize/demonstrate understanding of assistive devices/ modifications for ADL. 3=Patient will improve strength/tolerance for activity to enable patient to perform ADL's. 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 Plan of Care: ADL Retraining, Functional Mobility, Group Exercise/Act as Ind ( education, exercise, socialization, activity tolerance, funct activities), UE Funct Exercise/Act, UE Neuromus Re-Ed/Coord Treatment Duration: Feb 25, 2017 Frequency: At least 5 of 7 days/Wk (IRF) Estimated Hrs Per Day: 1.5 hours per day Agreement: Yes Rehab Potential: Fair Time/GCodes Start Time: 11:00 Stop Time: 12:10 Total Time Billed (hr/min): 70 Billed Treatment Time visit, 25 minutes ADL, 45 minutes exercise SHIVAM NAVA OT Feb 09, 2017 11:35
[2017-02-09 15:13] VITALS: BP 119/75
[2017-02-09] MEDS: ENOXAPARIN 40 MG/0.4 ML (LOVENOX) SYR SC SCH (15:23)
--- NOTE | 2017-02-09 15:35 | Therapy Group Daily Note ---
Therapy Daily Group Note Patient Education Topic Other List Below (Memeory Strategies) Exercises LE Seated Exercise, UE Exercise Other/Notes Pt ambulated to PT/OT Group using FWW at [facility]. Group consisted of Introductions (Name, Where you live & What you have not done in your life that you would want to do), Socialization, UE & LE Seated EX, Memory Strategies and Activity as well as giving an Inspirational Word of Encouragement. Pt participated in Group by Identifying a Personal Memory Strategy that they use as well as an Inspirational Word and completing both UE & LE Ex. Pt returned to room to rest at end of Group with all needs met. Start Time: 13:00 Stop Time: 14:20 Total Billed Treatment Time: 80 Total Billed Treatment 1, GRP CORAZON DE LA CRUZ REGRINDER OPERATOR Feb 09, 2017 15:35
--- NOTE | 2017-02-09 16:52 | Occupational Ther Daily Note ---
OT Current Status-Daily Note Subjective Pt seen in room, up at EOB, agreeable to OT. No pain mentioned. Mental Status/Objective Functional [place] Measure 0=Not Assessed/NA 4=Minimal Assistance 1=Total Assistance 5=Supervision or Setup 2=Maximal Assistance 6=Modified [place] 3=Moderate Assistance 7=Complete [place] ADL-Treatment Functional [place] Measure 0=Not Assessed/NA 4=Minimal Assistance 1=Total Assistance 5=Supervision or Setup 2=Maximal Assistance 6=Modified [place] 3=Moderate Assistance 7=Complete IndependenceIRFPAI Quality Coding Scale 6 Independent with activity with or without an assistive device 5 Patient requires set up or clean up by helper. Patient completes activity by themselves 4 Supervision or touching assist (CGA). [place] provide cues , steadying assist 3 The helper provides less than half the effort to complete the activity 2 The helper provides more than half the effort to complete the activity 1 Dependent. The helper does all the effort to complete an activity 7 Patient refused to complete or attempt activity 9 The patient did not perform the activity before the current illness or injury 88 Not attempted due to Medical conditions or safety concerns Toileting (FIM): 5 (supervision) Toilet/Commode Transfer (FIM): 5 (supervision) Other Treatment Pt transferred with SBA and walked SBA for safety, to and from gym. He did bilat tabletop activities with 2# weight on each arm (increased resistance) to strengthen arms for ADLs. Also worked with red theraputty for coordination and strengthening (he indicated he has noticed a in coordination since his diagnosis with Parkinsons). Pt returned to room, toileted and left up at EOB, all needs met. Education OT Patient Education: Exercise program, Purpose of tx/functional activities Teaching Recipient: Patient Teaching Methods: Discussion Response to Teaching: Verbalize Understanding OT Short Term Goals Short Term Goals Time Frame: Feb 10, 2017 Transfers (B,C,W/C) (FIM): 6 Toilet/Commode Transfer(FIM): 5 Additional Short Term Goals: 2-Verbalize Understanding, 3-ImproveStrength/Sheila 1=Demonstrate adherence to instructed precautions during ADL tasks. 2=Patient will verbalize/demonstrate understanding of assistive devices/ modifications for ADL. 3=Patient will improve strength/tolerance for activity to enable patient to perform ADL's. OT Staff Physical Therapist Goals Custodial Goals Time Frame: Feb 25, 2017 Eating (FIM): 6 Eating (QC): 6 Groomin Oral Hygiene (QC): 6 Bathing(FIM): 6 Shower/Bathe Self (QC): 6 Upper Body Dressing(FIM): 6 Upper Body Dressing (QC): 6 Lower Body Dressing(FIM): 6 Lower Body Dressing (QC): 6 On/Off Footwear (QC): 6 Toileting(FIM): 6 Toileting Hygiene (QC): 6 Toilet/Commode Transfer(FIM): 6 Toilet/Commode Transfer (QC): 6 Tub Transfer(FIM): 6 Shower Transfer(FIM): 6 Comprehension(FIM): 5 Expression (FIM): 5 Social Interaction(FIM): 5 Problem Solving(FIM): 4 Memory(FIM): 4 Additional Goals: 2-Verbalize Understanding, 3-ImproveStrength/Sheila 1=Demonstrate adherence to instructed precautions during ADL tasks. 2=Patient will verbalize/demonstrate understanding of assistive devices/ modifications for ADL. 3=Patient will improve strength/tolerance for activity to enable patient to perform ADL's. 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 Plan of Care: ADL Retraining, Functional Mobility, Group Exercise/Act as Ind ( education, exercise, socialization, activity tolerance, funct activities), UE Funct Exercise/Act, UE Neuromus Re-Ed/Coord Treatment Duration: Feb 25, 2017 Frequency: At least 5 of 7 days/Wk (IRF) Estimated Hrs Per Day: 1.5 hours per day Agreement: Yes Rehab Potential: Fair Time/GCodes Start Time: 14:35 Stop Time: 15:10 Total Time Billed (hr/min): 35 Billed Treatment Time visit, 35 minutes exercise SHIVAM NAVA OT Feb 09, 2017 16:52
--- NOTE | 2017-02-09 17:57 | PM & R (SOAP) Progress Note ---
Subjective Time Seen by Provider: 08:45 Subjective/Events-last exam Patient was seen in his room this AM Meds adjusted for chronic constipation Patient SBA for transfers Review of Systems Neurological: Other (tremors left hand) Objective Exam Last Set of Vital Signs Vital Signs Date Time Temp Pulse Resp B/P (MAP) Pulse Ox O2 Delivery O2 Flow Rate FiO2 02/09/17 15:13 72 94 21 02/09/17 15:10 Room Air 02/08/17 18:20 98.2 16 119/75 Capillary Refill : I&O Intake and Output 02/10/17 00:00 Intake Total 400 ml Output Total 1275 ml Balance -875 ml Intake Oral 400 ml Output Urine Total 1275 ml # Bowel Movements 4 General: Alert, Oriented X3, Cooperative, No Acute Distress HEENT: Atraumatic, PERRLA, EOMI, Mucous Memb Moist/[place] Neck: Supple, No JVD Lungs: Clear to Auscultation Heart: Regular Rate Abdomen: Normal Bowel Sounds, Soft, No Tenderness Extremities: No Edema Neuro: Other ( Tremors left hand) Assessment/Plan Assessment 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
[2017-02-09 19:37] VITALS: BP 130/79
[2017-02-09] MEDS: ATORVASTATIN 40 MG (LIPITOR) TABLET PO SCH (20:51)
[2017-02-10 05:10] VITALS: BP 126/74
[2017-02-10] MEDS: SINEMET 25/100 (CARBIDOPA/LEVODOPA) TAB PO SCH ×3 (06:41→16:41)
[2017-02-10] MEDS: PHENAZOPYRIDINE 100 MG (PYRIDIUM) TABLET PO SCH ×2 (08:21→21:00)
[2017-02-10] MEDS: FAMOTIDINE 20 MG (PEPCID) TABLET PO SCH ×2 (08:21→21:00)
[2017-02-10] MEDS: lisINopril 10 MG (PRINIVIL) TAB PO SCH (08:21)
[2017-02-10] MEDS: ASPIRIN 81 MG CHEW (CHILDREN'S ASA) PO SCH (08:21)
[2017-02-10] MEDS: DOCUSATE SODIUM 100 MG (COLACE) CAP PO SCH ×2 (08:21→21:00)
[2017-02-10] MEDS: FOLIC ACID 1 MG TAB PO SCH (08:21)
[2017-02-10] MEDS: amLODIPine 5 MG (NORVASC) TAB PO SCH (08:21)
[2017-02-10] MEDS: LACTULOSE SYRUP 10GM/15ML (ENULOSE) 30ML UDC PO SCH ×2 (08:22→21:01)
[2017-02-10] MEDS: BISACODYL 10 MG SUPP (DULCOLAX) PR SCH ×2 (08:23→21:01)
--- NOTE | 2017-02-10 08:25 | Progress Note (SOAP) ---
Subjective Time Seen by Provider: 08:25 Subjective/Events-last exam CVA. Parkinson disease. Patient feels he is improving. Patient using walker to get around Objective Exam Vital Signs Date Time Temp Pulse Resp B/P (MAP) Pulse Ox O2 Delivery O2 Flow Rate FiO2 02/10/17 05:10 98.4 74 18 126/74 95 Room Air 02/09/17 19:37 98.2 73 16 130/79 97 Room Air 02/09/17 15:13 72 94 21 02/09/17 15:10 94 Room Air 02/09/17 08:33 Room Air Capillary Refill : General Appearance: No Apparent Distress, Thin Assessment/Plan Assessment/Plan Assess & Plan/Chief Complaint CVA. Hypertension. Parkinson disease. Patient's blood pressure elevated put on lisinopril. . 02/07/17. CVA. Hypertension. Parkinson disease. Constipation. Patient feels better after having a bowel movement.. . 02/08/17. CVA. Hypertension. Parkinson Disease. Patient's answer doing better. Speech is improving. . 02/09/17. CVA. Hypertension. Parkinson disease better. Patient speech better.. . 02/10/17. CVA. Hypertension. Less signs of Parkinson's disease with medicine. Patient talking well. Patient improving Clinical Quality Measures DVT/VTE Risk/Contraindication: Risk Factor Score Per Nursin RFS Level Per Nursing on Admit: 4+=Very High RODO ROCHA DO Feb 10, 2017 08:25
--- NOTE | 2017-02-10 10:47 | Physical Therapy Daily Note ---
PT Daily Note-Current Subjective Pt sitting at EOB upon arrival. Pt agrees to PT. Mental Status Patient Orientation: Person, Place, Situation Transfers Functional [place] Measure 0=Not Assessed/NA 4=Minimal Assistance 1=Total Assistance 5=Supervision or Setup 2=Maximal Assistance 6=Modified [place] 3=Moderate Assistance 7=Complete IndependenceIRFPAI Quality Coding Scale 6 Independent with activity with or without an assistive device 5 Patient requires set up or clean up by helper. Patient completes activity by themselves 4 Supervision or touching assist (CGA). [place] provide cues , steadying assist 3 The helper provides less than half the effort to complete the activity 2 The helper provides more than half the effort to complete the activity 1 Dependent. The helper does all the effort to complete an activity 7 Patient refused to complete or attempt activity 9 The patient did not perform the activity before the current illness or injury 88 Not attempted due to Medical conditions or safety concerns Scootin Rollin Roll Left to Right (QC): 5 Supine to/from Sit: 5 Sit to/from Stand: 5 Sit to Stand (QC): 5 Weight Bearing Right Lower Extremity: Right Full Weight Bearing Left Lower Extremity: Left Full Weight Bearing Gait Training Does the Patient Walk?: Yes Distance (FIM): 3=150 ft Distance: 200' Walk 10 feet (QC): 5 Walk 50 ft with 2 Turns(QC): 5 Walk 150 ft (QC): 5 Gait Level of Assist: 5 Gait Persons Needed: 1 Gait Assistive Device: Cane Single Point Pt practiced with SPC today to assist with balance but it requires more effort/ focus than FWW. Pt walks with slow but steady yumiko, no LOB. Pt walks with more normalized gait using SPC. Wheelchair Training Does the Pt Use a Wheelchair?: No Exercises Seated Therapy Exercises: Ankle pumps NuStep Minutes: 10 NuStep Workload: 6 Treatments Pt transfers from EOB to standing using SPC at SBA. Pt ambulates using SPC at SBA. Pt uses NuStep for 10m at Workload 6. Pt returns to room to use restroom then rest at EOB at end of tx with all needs met. Assessment Current Status: Good Progress Pt has better balance with SPC than observed w/o AD but still less restrictive than FWW. PT Short Term Goals Short Term Goals Time Frame: Feb 10, 2017 Transfers (B,C,W/C) (FIM): 6 Gait (FIM): 4 Gait Distance Comment: 200' Gait Level of Assist: 4 Gait Assistive Device: FWW PT Medical Radiation Tech Goals Medical Radiation Tech Goals PT Medical Radiation Tech Goals Time Frame: Feb 24, 2017 Transfers (B,C,W/C) (FIM): 7 Sit to Lying (QC): 6 Lying-Sitting on Side/Bed(QC): 6 Sit to Stand (QC): 6 Rollin Roll Left to Right (QC): 6 Chair/Xqh-nf-Jmhbo Xfer(QC): 6 Car Transfer (QC): 4 (SBA) Does the Patient Walk: No and Walking Goal IS indicated Gait (FIM): 6 Gait distance (FIM): 3=150 ft Walk 10 feet (QC): 6 Walk 10ft-Uneven Surface(QC): 6 Walk 50ft with 2 Turns (QC): 6 Walk 150 ft (QC): 6 Gait Level of Assist: 6 Gait Assistive Device: FWW Stairs (FIM): 5 # of Steps: 12 1 Step (curb) (QC): 4 4 Steps (QC): 4 12 Steps (QC): 4 Stairs Level Of Assist: 5 Picking up an Object (QC): 4 PT Plan Problem List Problem List: Activity Tolerance, Functional Strength, Gait Treatment/Plan Treatment Plan: Continue Plan of Care Treatment Plan: Bed Mobility, Education, Functional Activity Sheila, Functional Strength, Group Therapy, Gait, Safety, Therapeutic Exercise, Transfers Treatment Duration: Feb 24, 2017 Frequency: At least 5 of 7 days/Wk (IRF) Estimated Hrs Per Day: 1.5 hours per day Patient and/or Family Agrees t: Yes Safety Risks/Education Patient Education: Gait Training, Transfer Techniques, Correct Positioning, Safety Issues Teaching Recipient: Patient Teaching Methods: Discussion Response to Teaching: Verbalize Understanding Time/GCodes Time In: 845 Time Out: 930 Total Billed Treatment Time: 45 Total Billed Treatment visit, GT (15m), EX (15m) FA (15m) CORAZON DE LA CRUZ PTA Feb 10, 2017 10:47
--- NOTE | 2017-02-10 11:03 | Physical Therapy Daily Note ---
PT Daily Note-Current Subjective Agreeble to PT. Anxious to discharge home. Transfers Functional [place] Measure 0=Not Assessed/NA 4=Minimal Assistance 1=Total Assistance 5=Supervision or Setup 2=Maximal Assistance 6=Modified [place] 3=Moderate Assistance 7=Complete IndependenceIRFPAI Quality Coding Scale 6 Independent with activity with or without an assistive device 5 Patient requires set up or clean up by helper. Patient completes activity by themselves 4 Supervision or touching assist (CGA). [place] provide cues , steadying assist 3 The helper provides less than half the effort to complete the activity 2 The helper provides more than half the effort to complete the activity 1 Dependent. The helper does all the effort to complete an activity 7 Patient refused to complete or attempt activity 9 The patient did not perform the activity before the current illness or injury 88 Not attempted due to Medical conditions or safety concerns Weight Bearing Right Lower Extremity: Right Full Weight Bearing Left Lower Extremity: Left Full Weight Bearing Treatments Pt stood at sink to brush teeth, working on standing static balance, safe and steady with SBA only. Pt then ambulated x 300 ft with FWW with multiple turns, obstacles and narrow walking paths with fWW with SBA. Safe and steady without safety concern at this time. Assessment Current Status: Good Progress PT Short Term Goals Short Term Goals Time Frame: Feb 10, 2017 Transfers (B,C,W/C) (FIM): 6 Gait (FIM): 4 Gait Distance Comment: 200' Gait Level of Assist: 4 Gait Assistive Device: FWW PT Prison Goals Creel Selector Goals PT Prison Goals Time Frame: Feb 24, 2017 Transfers (B,C,W/C) (FIM): 7 Sit to Lying (QC): 6 Lying-Sitting on Side/Bed(QC): 6 Sit to Stand (QC): 6 Rollin Roll Left to Right (QC): 6 Chair/Eco-ys-Dkbsn Xfer(QC): 6 Car Transfer (QC): 4 (SBA) Does the Patient Walk: No and Walking Goal IS indicated Gait (FIM): 6 Gait distance (FIM): 3=150 ft Walk 10 feet (QC): 6 Walk 10ft-Uneven Surface(QC): 6 Walk 50ft with 2 Turns (QC): 6 Walk 150 ft (QC): 6 Gait Level of Assist: 6 Gait Assistive Device: FWW Stairs (FIM): 5 # of Steps: 12 1 Step (curb) (QC): 4 4 Steps (QC): 4 12 Steps (QC): 4 Stairs Level Of Assist: 5 Picking up an Object (QC): 4 PT Plan Problem List Problem List: Activity Tolerance, Functional Strength Treatment/Plan Treatment Plan: Continue Plan of Care Treatment Plan: Bed Mobility, Education, Functional Activity Sheila, Functional Strength, Group Therapy, Gait, Safety, Therapeutic Exercise, Transfers Treatment Duration: Feb 24, 2017 Frequency: At least 5 of 7 days/Wk (IRF) Estimated Hrs Per Day: 1.5 hours per day Patient and/or Family Agrees t: Yes Safety Risks/Education Patient Education: Safety Issues Teaching Recipient: Patient Teaching Methods: Discussion Response to Teaching: Verbalize Understanding Time/GCodes Time In: 1045 Time Out: 1100 Total Billed Treatment Time: 15 Total Billed Treatment visit GT 15 DAWNA COUCH PT Feb 10, 2017 11:03
--- NOTE | 2017-02-10 11:48 | PM & R (SOAP) Progress Note ---
Subjective Time Seen by Provider: 10:45 Subjective/Events-last exam Patient was seen in his room this AM Patient SBA for transfers and Gait with WW Hopes to go home soon. Objective Exam Last Set of Vital Signs Vital Signs Date Time Temp Pulse Resp B/P (MAP) Pulse Ox O2 Delivery O2 Flow Rate FiO2 02/10/17 05:10 98.4 74 18 126/74 95 Room Air 02/09/17 15:13 21 Capillary Refill : I&O Intake and Output 02/11/17 00:00 Intake Total 500 ml Balance 500 ml Intake Oral 500 ml # Voids 5 # Bowel Movements 1 General: Alert, Oriented X3, Cooperative, No Acute Distress HEENT: Atraumatic, PERRLA, EOMI, Mucous Memb Moist/[place] Neck: Supple, No JVD Lungs: Clear to Auscultation Heart: Regular Rate Abdomen: Normal Bowel Sounds, Soft, No Tenderness Extremities: No Edema Neuro: Other ( Tremors left hand) Assessment/Plan Assessment 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
--- NOTE | 2017-02-10 12:49 | Occupational Ther Daily Note ---
OT Current Status-Daily Note Subjective Pt seated EOB at beginning of tx. Pt agreed to take shower for therapy. Mental Status/Objective Functional [place] Measure 0=Not Assessed/NA 4=Minimal Assistance 1=Total Assistance 5=Supervision or Setup 2=Maximal Assistance 6=Modified [place] 3=Moderate Assistance 7=Complete [place] ADL-Treatment Pt had general supervision during ADLs to monitor balance. Pt transferred from EOB <> standing, standing <> toilet, all with supervision. No LOB was observed with any transfers. FWW, grab bars. Functional [place] Measure 0=Not Assessed/NA 4=Minimal Assistance 1=Total Assistance 5=Supervision or Setup 2=Maximal Assistance 6=Modified [place] 3=Moderate Assistance 7=Complete IndependenceIRFPAI Quality Coding Scale 6 Independent with activity with or without an assistive device 5 Patient requires set up or clean up by helper. Patient completes activity by themselves 4 Supervision or touching assist (CGA). [place] provide cues , steadying assist 3 The helper provides less than half the effort to complete the activity 2 The helper provides more than half the effort to complete the activity 1 Dependent. The helper does all the effort to complete an activity 7 Patient refused to complete or attempt activity 9 The patient did not perform the activity before the current illness or injury 88 Not attempted due to Medical conditions or safety concerns Grooming (FIM): 5 (Pt brushed hair and teeth while standing at sink, washed face and hands while in shower with supervision. No LOB was observed. FWW, accessible sink) Bathing (FIM): 5 (Pt showered with supervision, turning water off and on independently. Pt washed and dried all 10 body parts. Shower bench, removable shower head, grab bars.) Upper Body (FIM): 5 (Pt retrieved clean clothes from the closet and completed UB dressing/undressing with supervision. Pt stood at FWW to don/doff shirt with no observed LOB. FWW) Lower Body Dressing (FIM): 5 (Pt donned/doffed pants/underwear with supervision , partly while standing at FWW, partly while seated on shower bench. FWW, shower bench. No LOB was observed. Pt retrieved clothes from closet. ) Toileting (FIM): 5 (Pt toileted with supervision, no LOB was observed. FWW, tall toilet, grab bars. ) Shower Transfer(FIM): 5 (Pt transfered standing <> shower chair with supervision. No LOB was observed during transfers. FWW, shower bench, grab bars. ) Pt requires longer than typical time to complete all activities but does so with mild safety concerns for balance.Pt was left seated EOB, all needs met. Education OT Patient Education: Correct positioning, Purpose of tx/functional activities , Safety issues, Use of adapted equipment Teaching Recipient: Patient Teaching Methods: Discussion Response to Teaching: Verbalize Understanding OT Short Term Goals Short Term Goals Time Frame: Feb 10, 2017 Transfers (B,C,W/C) (FIM): 6 Toilet/Commode Transfer(FIM): 5 Additional Short Term Goals: 2-Verbalize Understanding, 3-ImproveStrength/Sheila 1=Demonstrate adherence to instructed precautions during ADL tasks. 2=Patient will verbalize/demonstrate understanding of assistive devices/ modifications for ADL. 3=Patient will improve strength/tolerance for activity to enable patient to perform ADL's. OT Slat Basket Maker Machine Goals [facility] Goals Time Frame: Feb 25, 2017 Eating (FIM): 6 Eating (QC): 6 Groomin Oral Hygiene (QC): 6 Bathing(FIM): 6 Shower/Bathe Self (QC): 6 Upper Body Dressing(FIM): 6 Upper Body Dressing (QC): 6 Lower Body Dressing(FIM): 6 Lower Body Dressing (QC): 6 On/Off Footwear (QC): 6 Toileting(FIM): 6 Toileting Hygiene (QC): 6 Toilet/Commode Transfer(FIM): 6 Toilet/Commode Transfer (QC): 6 Tub Transfer(FIM): 6 Shower Transfer(FIM): 6 Comprehension(FIM): 5 Expression (FIM): 5 Social Interaction(FIM): 5 Problem Solving(FIM): 4 Memory(FIM): 4 Additional Goals: 2-Verbalize Understanding, 3-ImproveStrength/Sheila 1=Demonstrate adherence to instructed precautions during ADL tasks. 2=Patient will verbalize/demonstrate understanding of assistive devices/ modifications for ADL. 3=Patient will improve strength/tolerance for activity to enable patient to perform ADL's. 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 Plan of Care: ADL Retraining, Functional Mobility, Group Exercise/Act as Ind ( education, exercise, socialization, activity tolerance, funct activities), UE Funct Exercise/Act, UE Neuromus Re-Ed/Coord Treatment Duration: Feb 25, 2017 Frequency: At least 5 of 7 days/Wk (IRF) Estimated Hrs Per Day: 1.5 hours per day Agreement: Yes Rehab Potential: Fair Time/GCodes Start Time: 11:03 Stop Time: 12:07 Total Time Billed (hr/min): 64 Billed Treatment Time visit, 64 minutes SHIVAM OSORIO OT Feb 10, 2017 12:49
--- NOTE | 2017-02-10 13:50 | Physical Therapy Daily Note ---
PT Daily Note-Current Subjective Pt sitting at EOB upon arrival. Pt agrees to PT. Pain Location: No Pain Reported Mental Status Patient Orientation: Person, Place, Situation Transfers Functional [place] Measure 0=Not Assessed/NA 4=Minimal Assistance 1=Total Assistance 5=Supervision or Setup 2=Maximal Assistance 6=Modified [place] 3=Moderate Assistance 7=Complete IndependenceIRFPAI Quality Coding Scale 6 Independent with activity with or without an assistive device 5 Patient requires set up or clean up by helper. Patient completes activity by themselves 4 Supervision or touching assist (CGA). [place] provide cues , steadying assist 3 The helper provides less than half the effort to complete the activity 2 The helper provides more than half the effort to complete the activity 1 Dependent. The helper does all the effort to complete an activity 7 Patient refused to complete or attempt activity 9 The patient did not perform the activity before the current illness or injury 88 Not attempted due to Medical conditions or safety concerns Scootin Sit to/from Stand: 5 Sit to Stand (QC): 5 Weight Bearing Right Lower Extremity: Right Full Weight Bearing Left Lower Extremity: Left Full Weight Bearing Gait Training Does the Patient Walk?: Yes Distance (FIM): 3=150 ft Distance: 250' Walk 10 feet (QC): 5 Walk 50 ft with 2 Turns(QC): 5 Walk 150 ft (QC): 5 Gait Level of Assist: 5 Gait Persons Needed: 1 Gait Assistive Device: Cane Single Point Pt has improved balance with SPC. Pt walks with normalized gait, steady with no LOB. Wheelchair Training Does the Pt Use a Wheelchair?: No Stair Training Stair Training: Handrails/: 2 handrails #of Steps: 8 1 Step (curb) (QC): 5 4 Steps (QC): 5 Stairs: Pattern: Reciprocal Level of Assist: 5 Exercises Seated Therapy Exercises: Ankle pumps, Long arc quads, Hip flexion, Kicking activity, Hip abd/add Seated Reps: 20 Treatments Pt transfers from EOB to standing using SPC at SBA. Pt ambulates in hallway using SPC at SBA. Pt ambulates 2 sets of 4 stairs before resting in chair. Pt then completes Seated Ex in chair. Pt rests in chair at end of tx awaiting OT tx with all needs met. Assessment Current Status: Good Progress Pt has improved balance using SPC. Pt is looking forward to discharge AASHISH. PT Short Term Goals Short Term Goals Time Frame: Feb 10, 2017 Transfers (B,C,W/C) (FIM): 6 Gait (FIM): 4 Gait Distance Comment: 200' Gait Level of Assist: 4 Gait Assistive Device: FWW PT Certified Medication Aide Goals Certified Medication Aide Goals PT Certified Medication Aide Goals Time Frame: Feb 24, 2017 Transfers (B,C,W/C) (FIM): 7 Sit to Lying (QC): 6 Lying-Sitting on Side/Bed(QC): 6 Sit to Stand (QC): 6 Rollin Roll Left to Right (QC): 6 Chair/Yis-he-Jjiun Xfer(QC): 6 Car Transfer (QC): 4 (SBA) Does the Patient Walk: No and Walking Goal IS indicated Gait (FIM): 6 Gait distance (FIM): 3=150 ft Walk 10 feet (QC): 6 Walk 10ft-Uneven Surface(QC): 6 Walk 50ft with 2 Turns (QC): 6 Walk 150 ft (QC): 6 Gait Level of Assist: 6 Gait Assistive Device: FWW Stairs (FIM): 5 # of Steps: 12 1 Step (curb) (QC): 4 4 Steps (QC): 4 12 Steps (QC): 4 Stairs Level Of Assist: 5 Picking up an Object (QC): 4 PT Plan Problem List Problem List: Activity Tolerance, Functional Strength Treatment/Plan Treatment Plan: Continue Plan of Care Treatment Plan: Bed Mobility, Education, Functional Activity Sheila, Functional Strength, Group Therapy, Gait, Safety, Therapeutic Exercise, Transfers Treatment Duration: Feb 24, 2017 Frequency: At least 5 of 7 days/Wk (IRF) Estimated Hrs Per Day: 1.5 hours per day Patient and/or Family Agrees t: Yes Safety Risks/Education Patient Education: Gait Training, Correct Positioning, Safety Issues Teaching Recipient: Patient Teaching Methods: Discussion Response to Teaching: Verbalize Understanding Time/GCodes Time In: 1256 Time Out: 1326 Total Billed Treatment Time: 30 Total Billed Treatment visit, GT (15m) & EX (15m) CORAZON DE LA CRUZ VOLUNTEER MANAGER Feb 10, 2017 13:50
--- NOTE | 2017-02-10 14:42 | Occupational Ther Daily Note ---
OT Current Status-Daily Note Subjective Pt was seen in gym after PT, agreeable to OT. No pain mentioned. Appearance Alert, cooperative Mental Status/Objective Functional [place] Measure 0=Not Assessed/NA 4=Minimal Assistance 1=Total Assistance 5=Supervision or Setup 2=Maximal Assistance 6=Modified [place] 3=Moderate Assistance 7=Complete [place] ADL-Treatment Functional [place] Measure 0=Not Assessed/NA 4=Minimal Assistance 1=Total Assistance 5=Supervision or Setup 2=Maximal Assistance 6=Modified [place] 3=Moderate Assistance 7=Complete IndependenceIRFPAI Quality Coding Scale 6 Independent with activity with or without an assistive device 5 Patient requires set up or clean up by helper. Patient completes activity by themselves 4 Supervision or touching assist (CGA). [place] provide cues , steadying assist 3 The helper provides less than half the effort to complete the activity 2 The helper provides more than half the effort to complete the activity 1 Dependent. The helper does all the effort to complete an activity 7 Patient refused to complete or attempt activity 9 The patient did not perform the activity before the current illness or injury 88 Not attempted due to Medical conditions or safety concerns Other Treatment Pt did 15 reps bilat UE exercise with 2# weight, working on shoulders, elbows, forearms and wrists. He worked at a slow but steady pace and switched from hand to hand without difficulty. Exercise to strengthen arms to help with transfers and activity tolerance. Pt walked back to room using SPC with 1X LOB when first getting up and starting to walk but pt was able to correct it with just a little help. Skilled cues for sequencing walk to room, with occas breaks to restart pattern. Pt requested to walk to bathroom to wash hands and preferred to use FWW, stating that he felt more stable. pt left up at EOB, all needs met. Education OT Patient Education: Exercise program, Purpose of tx/functional activities, Use of adapted equipment Teaching Recipient: Patient Teaching Methods: Discussion Response to Teaching: Return Demonstration, Reinforcement Needed OT Short Term Goals Short Term Goals Time Frame: Feb 10, 2017 Transfers (B,C,W/C) (FIM): 6 Toilet/Commode Transfer(FIM): 5 Additional Short Term Goals: 2-Verbalize Understanding, 3-ImproveStrength/Sheila 1=Demonstrate adherence to instructed precautions during ADL tasks. 2=Patient will verbalize/demonstrate understanding of assistive devices/ modifications for ADL. 3=Patient will improve strength/tolerance for activity to enable patient to perform ADL's. OT Long-Term Goals Recoater Goals Time Frame: Feb 25, 2017 Eating (FIM): 6 Eating (QC): 6 Groomin Oral Hygiene (QC): 6 Bathing(FIM): 6 Shower/Bathe Self (QC): 6 Upper Body Dressing(FIM): 6 Upper Body Dressing (QC): 6 Lower Body Dressing(FIM): 6 Lower Body Dressing (QC): 6 On/Off Footwear (QC): 6 Toileting(FIM): 6 Toileting Hygiene (QC): 6 Toilet/Commode Transfer(FIM): 6 Toilet/Commode Transfer (QC): 6 Tub Transfer(FIM): 6 Shower Transfer(FIM): 6 Comprehension(FIM): 5 Expression (FIM): 5 Social Interaction(FIM): 5 Problem Solving(FIM): 4 Memory(FIM): 4 Additional Goals: 2-Verbalize Understanding, 3-ImproveStrength/Sheila 1=Demonstrate adherence to instructed precautions during ADL tasks. 2=Patient will verbalize/demonstrate understanding of assistive devices/ modifications for ADL. 3=Patient will improve strength/tolerance for activity to enable patient to perform ADL's. 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 Plan of Care: ADL Retraining, Functional Mobility, Group Exercise/Act as Ind ( education, exercise, socialization, activity tolerance, funct activities), UE Funct Exercise/Act, UE Neuromus Re-Ed/Coord Treatment Duration: Feb 25, 2017 Frequency: At least 5 of 7 days/Wk (IRF) Estimated Hrs Per Day: 1.5 hours per day Agreement: Yes Rehab Potential: Fair Time/GCodes Start Time: 13:30 Stop Time: 14:00 Total Time Billed (hr/min): 30 Billed Treatment Time visit, 30 minutes exercise SHIVAM NAVA OT Feb 10, 2017 14:42
[2017-02-10] MEDS: ENOXAPARIN 40 MG/0.4 ML (LOVENOX) SYR SC SCH (15:21)
[2017-02-10 19:25] VITALS: BP 125/82
[2017-02-10] MEDS: ATORVASTATIN 40 MG (LIPITOR) TABLET PO SCH (21:00)
[2017-02-11 05:00] VITALS: BP 157/91
[2017-02-11] MEDS: SINEMET 25/100 (CARBIDOPA/LEVODOPA) TAB PO SCH ×3 (06:11→17:48)
--- NOTE | 2017-02-11 07:55 | Progress Note (SOAP) ---
Subjective Time Seen by Provider: 07:30 Subjective/Events-last exam CVA. Dysphonia. BPH. Parkinson disease. Tremor less with Sinemet. Patient voices no complaints Objective Exam Vital Signs Date Time Temp Pulse Resp B/P (MAP) Pulse Ox O2 Delivery O2 Flow Rate FiO2 02/11/17 05:00 98.9 71 16 157/91 96 Room Air 02/10/17 20:52 Room Air 02/10/17 19:25 97.8 74 16 125/82 97 Room Air Capillary Refill : General Appearance: No Apparent Distress, Thin HEENT: Normal ENT Inspection Neck: Normal Inspection Assessment/Plan Assessment/Plan Assess & Plan/Chief Complaint CVA. Hypertension. Parkinson disease. Patient's blood pressure elevated put on lisinopril. . 02/07/17. CVA. Hypertension. Parkinson disease. Constipation. Patient feels better after having a bowel movement.. . 02/08/17. CVA. Hypertension. Parkinson Disease. Patient's answer doing better. Speech is improving. . 02/09/17. CVA. Hypertension. Parkinson disease better. Patient speech better.. . 02/10/17. CVA. Hypertension. Less signs of Parkinson's disease with medicine. Patient talking well. Patient improving. . 02/11/17. CVA. Hypertension. Parkinson disease. Patient communicating better. Tremors less Clinical Quality Measures DVT/VTE Risk/Contraindication: Risk Factor Score Per Nursin RFS Level Per Nursing on Admit: 4+=Very High RODO ROCHA DO Feb 11, 2017 07:55
[2017-02-11] MEDS: LACTULOSE SYRUP 10GM/15ML (ENULOSE) 30ML UDC PO SCH ×2 (08:56→18:18)
[2017-02-11] MEDS: PHENAZOPYRIDINE 100 MG (PYRIDIUM) TABLET PO SCH ×2 (08:57→21:56)
[2017-02-11] MEDS: FAMOTIDINE 20 MG (PEPCID) TABLET PO SCH ×2 (08:57→21:56)
[2017-02-11] MEDS: amLODIPine 5 MG (NORVASC) TAB PO SCH (08:57)
[2017-02-11] MEDS: BISACODYL 10 MG SUPP (DULCOLAX) PR SCH ×2 (08:57→21:56)
[2017-02-11] MEDS: ASPIRIN 81 MG CHEW (CHILDREN'S ASA) PO SCH (08:57)
[2017-02-11] MEDS: lisINopril 10 MG (PRINIVIL) TAB PO SCH (08:57)
[2017-02-11] MEDS: FOLIC ACID 1 MG TAB PO SCH (08:57)
[2017-02-11] MEDS: DOCUSATE SODIUM 100 MG (COLACE) CAP PO SCH ×2 (08:57→21:56)
--- NOTE | 2017-02-11 09:04 | PM & R (SOAP) Progress Note ---
Subjective Time Seen by Provider: 08:10 Subjective/Events-last exam Patient was seen in his room this AM Patient SBA for transfers Objective Exam Last Set of Vital Signs Vital Signs Date Time Temp Pulse Resp B/P (MAP) Pulse Ox O2 Delivery O2 Flow Rate FiO2 02/11/17 05:00 98.9 71 16 157/91 96 Room Air 02/09/17 15:13 21 Capillary Refill : I&O Intake and Output 02/12/17 00:00 Intake Total 650 ml Balance 650 ml Intake Oral 650 ml # Voids 6 # Bowel Movements 1 General: Alert, Oriented X3, Cooperative, No Acute Distress HEENT: Atraumatic, PERRLA, EOMI, Mucous Memb Moist/[place] Neck: Supple, No JVD Lungs: Clear to Auscultation Heart: Regular Rate Abdomen: Normal Bowel Sounds, Soft, No Tenderness Extremities: No Edema Neuro: Other ( Tremors left hand) Assessment/Plan Assessment 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 JASVIR DUMONT MD Feb 11, 2017 09:04
--- NOTE | 2017-02-11 09:49 | Physical Therapy Daily Note ---
PT Daily Note-Current Subjective Pt R sidelying upon arrival. Pt agrees to PT. Pain Location: No Pain Reported Mental Status Patient Orientation: Person, Place, Situation Transfers Functional [place] Measure 0=Not Assessed/NA 4=Minimal Assistance 1=Total Assistance 5=Supervision or Setup 2=Maximal Assistance 6=Modified [place] 3=Moderate Assistance 7=Complete IndependenceIRFPAI Quality Coding Scale 6 Independent with activity with or without an assistive device 5 Patient requires set up or clean up by helper. Patient completes activity by themselves 4 Supervision or touching assist (CGA). [place] provide cues , steadying assist 3 The helper provides less than half the effort to complete the activity 2 The helper provides more than half the effort to complete the activity 1 Dependent. The helper does all the effort to complete an activity 7 Patient refused to complete or attempt activity 9 The patient did not perform the activity before the current illness or injury 88 Not attempted due to Medical conditions or safety concerns Scootin Rollin Roll Left to Right (QC): 5 Supine to/from Sit: 5 Sit to/from Stand: 5 Sit to Stand (QC): 5 Weight Bearing Right Lower Extremity: Right Full Weight Bearing Left Lower Extremity: Left Full Weight Bearing Gait Training Does the Patient Walk?: Yes Distance (FIM): 3=150 ft Distance: 175' Walk 10 feet (QC): 5 Walk 50 ft with 2 Turns(QC): 5 Walk 150 ft (QC): 5 Gait Level of Assist: 5 Gait Assistive Device: FWW Pt worked with both FWW and SPC to ambualte. Pt is a little more unsteady first thing in the morning so FWW is used. Pt ambulates at close SBA. Pt's gait is slow but steady. Wheelchair Training Does the Pt Use a Wheelchair?: No Exercises NuStep Minutes: 10 NuStep Workload: 5 Treatments Pt transfers from bed to EOB to Standing using FWW at SBA. Pt ambulates in hallway. Pt completes 10m on NuStep at Workload 5. Pt ambulates more in hallway using SPC at close SBA. Pt returns to room to rest at end of tx with all needs met. Pt discusses medical history and concerns for home with PT. Assessment Current Status: Good Progress Pt has a few safety concerns as far as what AD to use and tries to get out of bed by self on occasion. PT Short Term Goals Short Term Goals Time Frame: Feb 10, 2017 Transfers (B,C,W/C) (FIM): 6 Gait (FIM): 4 Gait Distance Comment: 200' Gait Level of Assist: 4 Gait Assistive Device: FWW PT Screw Machine Operator [place] Type Goals Residential Goals PT Residential Goals Time Frame: Feb 24, 2017 Transfers (B,C,W/C) (FIM): 7 Sit to Lying (QC): 6 Lying-Sitting on Side/Bed(QC): 6 Sit to Stand (QC): 6 Rollin Roll Left to Right (QC): 6 Chair/Bce-cf-Sdyaj Xfer(QC): 6 Car Transfer (QC): 4 (SBA) Does the Patient Walk: No and Walking Goal IS indicated Gait (FIM): 6 Gait distance (FIM): 3=150 ft Walk 10 feet (QC): 6 Walk 10ft-Uneven Surface(QC): 6 Walk 50ft with 2 Turns (QC): 6 Walk 150 ft (QC): 6 Gait Level of Assist: 6 Gait Assistive Device: FWW Stairs (FIM): 5 # of Steps: 12 1 Step (curb) (QC): 4 4 Steps (QC): 4 12 Steps (QC): 4 Stairs Level Of Assist: 5 Picking up an Object (QC): 4 PT Plan Problem List Problem List: Activity Tolerance, Functional Strength, Safety, Balance, Gait Treatment/Plan Treatment Plan: Continue Plan of Care Treatment Plan: Bed Mobility, Education, Functional Activity Sheila, Functional Strength, Group Therapy, Gait, Safety, Therapeutic Exercise, Transfers Treatment Duration: Feb 24, 2017 Frequency: At least 5 of 7 days/Wk (IRF) Estimated Hrs Per Day: 1.5 hours per day Patient and/or Family Agrees t: Yes Safety Risks/Education Patient Education: Gait Training, Transfer Techniques, Correct Positioning, Safety Issues Teaching Recipient: Patient Teaching Methods: Discussion Response to Teaching: Reinforcement Needed Time/GCodes Time In: 800 Time Out: 845 Total Billed Treatment Time: 45 Total Billed Treatment visit, GT (15m), EX (15m) & FA (15m) CORAZON DE LA CRUZ MARINE SERVICE STATION ATTENDANT Feb 11, 2017 09:49
--- NOTE | 2017-02-11 11:25 | Speech Therapy Daily Note ---
Speech Daily Progress Note Subjective Date Seen by Provider: Feb 11, 2017 Time Seen by Provider: 09:30 The patient was seated at edge of bed upon entrance. The patient greeted the clinician appropriately and was agreeable to participation in language, voice, and cognitive treatment on this date. The patient is excited and eager to discharge in the near future. Objective Adduction Exercises: Vocal Fold Adduction Exercises were continued and reviewed on this date to improve functional breath support, as well as, appropriate volume for communication. The patient displayed high accuracy with exercises, following an initial direct modeling example by the clinician. With minimal cueing, ten repetitions of each exercise were performed. The patient is able to display adequate intensity levels with intermittent verbal prompting from the clinician. Assessment Assessment Current Status: Good Progress Treatment Plan Continue Plan of Care Communication Comprehension: 5 Expression: 5 Social Cognition Social Interaction: 5 Problem Solvin Memory: 5 Speech Short Term Goals Short Term Goals Short Term Goals 1. The patient will recall and demonstrate three functional memory strategies for use at home with mild clinician verbal cueing. 2. The patient will recall three items from a recently presented article/text with 80% accuracy. Time Frame-STG: Two Weeks Speech Primer Assembler Goals Primer Assembler Goals 1. The patient will display improved cognitive linguistic skills for increased safety and function with ADL's in the least restrictive setting. Time Frame: Three Weeks Comprehension: 5 Expression: 5 Social Interaction: 5 Problem Solvin Memory: 4 Speech-Plan Treatment Plan Speech Therapy Treatment Plan: Continue Plan of Care Continue skilled speech pathology services to target improved breath support and intensity with verbal communication. Treatment Duration: Feb 25, 2017 Frequency: Modified Program (IRF) (Four to five times per week.) Estimated Hrs Per Day: .5 hour per day Rehab Potential: Fair Safety Risks/Education Teaching Recipient: Patient Teaching Methods: Demonstration, Handout Response to Teaching: Verbalize Understanding, Return Demonstration Education Topics Provided: Adductor Fold Exercises Time Speech Therapy Time In: 09:30 Speech Therapy Time Out: 10:00 Total Billed Time: 30 Billed Treatment Time 1BOOGIEMEETA GOMEZSalbadorTAI ST Feb 11, 2017 11:25
--- NOTE | 2017-02-11 11:44 | Occupational Ther Daily Note ---
OT Current Status-Daily Note Subjective Pt sitting at EOB at beginning of tx. Agreeable to OT. Reported no pain. Appearance Very quiet Mental Status/Objective Functional [place] Measure 0=Not Assessed/NA 4=Minimal Assistance 1=Total Assistance 5=Supervision or Setup 2=Maximal Assistance 6=Modified [place] 3=Moderate Assistance 7=Complete [place] ADL-Treatment Pt brushed teeth, hair, and washed hands, then toileted (using FWW), then went to gym for exercises. Pt offered choice of using FWW or cane and chose to use FWW to ambulate (with supervision) to bathroom. Pt also used FWW to get to gym for activities. Pt still under supervision due to mild safety concerns but no LOB was observed during tx. Functional [place] Measure 0=Not Assessed/NA 4=Minimal Assistance 1=Total Assistance 5=Supervision or Setup 2=Maximal Assistance 6=Modified [place] 3=Moderate Assistance 7=Complete IndependenceIRFPAI Quality Coding Scale 6 Independent with activity with or without an assistive device 5 Patient requires set up or clean up by helper. Patient completes activity by themselves 4 Supervision or touching assist (CGA). [place] provide cues , steadying assist 3 The helper provides less than half the effort to complete the activity 2 The helper provides more than half the effort to complete the activity 1 Dependent. The helper does all the effort to complete an activity 7 Patient refused to complete or attempt activity 9 The patient did not perform the activity before the current illness or injury 88 Not attempted due to Medical conditions or safety concerns Grooming (FIM): 5 (Pt brushed teeth and brushed hair at sink with supervision. FWW, accessible sink.) Toileting (FIM): 5 (Pt toileted with supervision. FWW, grab bars. ) Toilet/Commode Transfer (FIM): 5 (Supervision, tall toilet, FWW, grab bar) Other Treatment Pt used arm bike for 15 minutes at 20 devlin and needed no recovery periods ( increase 3 minutes). With 2# weights on B UE, Pt removed and replaced bolts/ nuts with no recovery periods. Activities take longer than typical and are done to increase Pt's strength and activity endurance for ADLs. Pt returned to room with FWW, washed hands, and sat EOB, all needs met. Education OT Patient Education: Purpose of tx/functional activities, Safety issues Teaching Recipient: Patient Teaching Methods: Discussion Response to Teaching: Verbalize Understanding OT Short Term Goals Short Term Goals Time Frame: Feb 10, 2017 Transfers (B,C,W/C) (FIM): 6 Toilet/Commode Transfer(FIM): 5 Additional Short Term Goals: 2-Verbalize Understanding, 3-ImproveStrength/Sheila 1=Demonstrate adherence to instructed precautions during ADL tasks. 2=Patient will verbalize/demonstrate understanding of assistive devices/ modifications for ADL. 3=Patient will improve strength/tolerance for activity to enable patient to perform ADL's. OT Pilot Plant Technician Goals Pilot Plant Technician Goals Time Frame: Feb 25, 2017 Eating (FIM): 6 Eating (QC): 6 Groomin Oral Hygiene (QC): 6 Bathing(FIM): 6 Shower/Bathe Self (QC): 6 Upper Body Dressing(FIM): 6 Upper Body Dressing (QC): 6 Lower Body Dressing(FIM): 6 Lower Body Dressing (QC): 6 On/Off Footwear (QC): 6 Toileting(FIM): 6 Toileting Hygiene (QC): 6 Toilet/Commode Transfer(FIM): 6 Toilet/Commode Transfer (QC): 6 Tub Transfer(FIM): 6 Shower Transfer(FIM): 6 Comprehension(FIM): 5 Expression (FIM): 5 Social Interaction(FIM): 5 Problem Solving(FIM): 4 Memory(FIM): 4 Additional Goals: 2-Verbalize Understanding, 3-ImproveStrength/Sheila 1=Demonstrate adherence to instructed precautions during ADL tasks. 2=Patient will verbalize/demonstrate understanding of assistive devices/ modifications for ADL. 3=Patient will improve strength/tolerance for activity to enable patient to perform ADL's. 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 Plan of Care: ADL Retraining, Functional Mobility, Group Exercise/Act as Ind ( education, exercise, socialization, activity tolerance, funct activities), UE Funct Exercise/Act, UE Neuromus Re-Ed/Coord Treatment Duration: Feb 25, 2017 Frequency: At least 5 of 7 days/Wk (IRF) Estimated Hrs Per Day: 1.5 hours per day Agreement: Yes Rehab Potential: Fair Time/GCodes Start Time: 11:05 Stop Time: 12:11 Total Time Billed (hr/min): 66 Billed Treatment Time visit, 30 minutes ADL, 36 minutes exercise SHIVAM NAVA OT Feb 11, 2017 11:44
[2017-02-11] MEDS ORDERED: DOCU100C37 PO (11:56)
[2017-02-11] MEDS ORDERED: LISI10TA2 PO (11:56)
[2017-02-11] MEDS ORDERED: LACT20SO2 PO (11:56)
[2017-02-11] MEDS ORDERED: ATOR40TA PO (11:56)
[2017-02-11] MEDS ORDERED: AMLO5TAB2 PO (11:56)
[2017-02-11] MEDS ORDERED: FAMO20TA5 PO (11:56)
[2017-02-11] MEDS ORDERED: ASPI-999 PO (11:56)
[2017-02-11] MEDS ORDERED: PHEN-826 PO (11:56)
[2017-02-11] MEDS ORDERED: MAGN400O7 PO (11:56)
--- NOTE | 2017-02-11 14:17 | Speech Therapy Daily Note ---
Speech Daily Progress Note Subjective Date Seen by Provider: Feb 11, 2017 Time Seen by Provider: 13:40 The patient was seated on the edge of bed upon entrance. The patient greeted the clinician appropriately and was agreeable to participation in the speech and language treatment session. Objective Functional Safety Problem Solving: Photographs depicting safety issues in a normal, home environment were shown to the patient. The patient was asked to identify the safety concern and provide an adequate solution. The patient displayed 100% accuracy, independently. Assessment Assessment Current Status: Good Progress Treatment Plan Continue Plan of Care Communication Comprehension: 5 Expression: 5 Social Cognition Social Interaction: 5 Problem Solvin Memory: 5 Speech Short Term Goals Short Term Goals Short Term Goals 1. The patient will recall and demonstrate three functional memory strategies for use at home with mild clinician verbal cueing. 2. The patient will recall three items from a recently presented article/text with 80% accuracy. Time Frame-STG: Two Weeks Speech Litigation Legal Assistant Goals Litigation Legal Assistant Goals 1. The patient will display improved cognitive linguistic skills for increased safety and function with ADL's in the least restrictive setting. Time Frame: Three Weeks Comprehension: 5 Expression: 5 Social Interaction: 5 Problem Solvin Memory: 4 Speech-Plan Treatment Plan Speech Therapy Treatment Plan: Continue Plan of Care Continue skilled speech pathology to target functional safety problem solving and expressive communication. Treatment Duration: Feb 25, 2017 Frequency: Modified Program (IRF) (Four to five times per week.) Estimated Hrs Per Day: .5 hour per day Rehab Potential: Fair Safety Risks/Education Teaching Recipient: Patient Teaching Methods: Discussion Response to Teaching: Verbalize Understanding Education Topics Provided: Safety Problem Solving Time Speech Therapy Time In: 13:40 Speech Therapy Time Out: 14:10 Total Billed Time: 30 Billed Treatment Time REBEKAH Branham ELIZABETH Feb 11, 2017 14:17
[2017-02-11] MEDS: ENOXAPARIN 40 MG/0.4 ML (LOVENOX) SYR SC SCH (14:35)
--- NOTE | 2017-02-11 15:35 | Physical Therapy Daily Note ---
PT Daily Note-Current Subjective Patient is in bed about to fall asleep when PT enters. He agrees to PT. Pain Numeric Pain Scale: 0-No Pain Location: No Pain Reported Appearance Patient is in good health. Mental Status Patient Orientation: Normal For Age Transfers Functional [place] Measure 0=Not Assessed/NA 4=Minimal Assistance 1=Total Assistance 5=Supervision or Setup 2=Maximal Assistance 6=Modified [place] 3=Moderate Assistance 7=Complete IndependenceIRFPAI Quality Coding Scale 6 Independent with activity with or without an assistive device 5 Patient requires set up or clean up by helper. Patient completes activity by themselves 4 Supervision or touching assist (CGA). [place] provide cues , steadying assist 3 The helper provides less than half the effort to complete the activity 2 The helper provides more than half the effort to complete the activity 1 Dependent. The helper does all the effort to complete an activity 7 Patient refused to complete or attempt activity 9 The patient did not perform the activity before the current illness or injury 88 Not attempted due to Medical conditions or safety concerns Transfers (B, C, W/C) (FIM): 5 Supine to/from Sit: 5 Sit to/from Stand: 5 Sit to Lying (QC): 4 Sit to Stand (QC): 4 Patient can perform sit to stand and bed transfers with SBA. Weight Bearing Right Lower Extremity: Right Full Weight Bearing Left Lower Extremity: Left Full Weight Bearing Gait Training Does the Patient Walk?: Yes Gait (FIM): 3 Distance (FIM): 3=150 ft Distance: >300' Walk 10 feet (QC): 4 Walk 50 ft with 2 Turns(QC): 4 Walk 150 ft (QC): 4 Gait Level of Assist: 5 Gait Persons Needed: 1 Gait Assistive Device: FWW Patient ambulates with a normal gait pattern. He states that he feels much more comfortable with the FWW as opposed to the single point cane. Stair Training Stair Training: Handrails/: 2 handrails Stairs (FIM): 5 #of Steps: 20 Stairs: Pattern: Reciprocal Level of Assist: 5 Patient performs stair climbing with SBA from the therapist using 2 handrails. Assessment Current Status: Good Progress Patient demonstrates safe ambulation with an assistive device. Patient should be safe to ambulate with home family support. PT Short Term Goals Short Term Goals Time Frame: Feb 10, 2017 Transfers (B,C,W/C) (FIM): 6 Gait (FIM): 4 Gait Distance Comment: 200' Gait Level of Assist: 4 Gait Assistive Device: FWW PT Senior Care Goals Boat Deckhand Goals PT Boat Deckhand Goals Time Frame: Feb 24, 2017 Transfers (B,C,W/C) (FIM): 7 Sit to Lying (QC): 6 Lying-Sitting on Side/Bed(QC): 6 Sit to Stand (QC): 6 Rollin Roll Left to Right (QC): 6 Chair/Hea-cd-Zbyiu Xfer(QC): 6 Car Transfer (QC): 4 (SBA) Does the Patient Walk: No and Walking Goal IS indicated Gait (FIM): 6 Gait distance (FIM): 3=150 ft Walk 10 feet (QC): 6 Walk 10ft-Uneven Surface(QC): 6 Walk 50ft with 2 Turns (QC): 6 Walk 150 ft (QC): 6 Gait Level of Assist: 6 Gait Assistive Device: FWW Stairs (FIM): 5 # of Steps: 12 1 Step (curb) (QC): 4 4 Steps (QC): 4 12 Steps (QC): 4 Stairs Level Of Assist: 5 Picking up an Object (QC): 4 PT Plan Problem List Problem List: Functional Strength, Safety, Balance, Gait Treatment/Plan Treatment Plan: Continue Plan of Care Treatment Plan: Bed Mobility, Education, Functional Activity Sheila, Functional Strength, Group Therapy, Gait, Safety, Therapeutic Exercise, Transfers Treatment Duration: Feb 24, 2017 Frequency: At least 5 of 7 days/Wk (IRF) Estimated Hrs Per Day: 1.5 hours per day Patient and/or Family Agrees t: Yes Time/GCodes Time In: 310 Time Out: 326 Total Billed Treatment Time: 16 Total Billed Treatment 1 visit GT 16 min DAWNA COUCH PT Feb 11, 2017 15:35
[2017-02-11 18:29] VITALS: BP 124/84
[2017-02-11] MEDS: ATORVASTATIN 40 MG (LIPITOR) TABLET PO SCH (21:56)
[2017-02-12 05:00] VITALS: BP 135/73
[2017-02-12] MEDS: SINEMET 25/100 (CARBIDOPA/LEVODOPA) TAB PO SCH ×3 (06:25→17:01)
[2017-02-12] MEDS: FOLIC ACID 1 MG TAB PO SCH (09:43)
[2017-02-12] MEDS: DOCUSATE SODIUM 100 MG (COLACE) CAP PO SCH ×2 (09:43→20:07)
[2017-02-12] MEDS: amLODIPine 5 MG (NORVASC) TAB PO SCH (09:44)
[2017-02-12] MEDS: ASPIRIN 81 MG CHEW (CHILDREN'S ASA) PO SCH (09:44)
[2017-02-12] MEDS: PHENAZOPYRIDINE 100 MG (PYRIDIUM) TABLET PO SCH ×2 (09:44→20:07)
[2017-02-12] MEDS: lisINopril 10 MG (PRINIVIL) TAB PO SCH (09:44)
[2017-02-12] MEDS: FAMOTIDINE 20 MG (PEPCID) TABLET PO SCH ×2 (09:44→20:07)
[2017-02-12] MEDS: LACTULOSE SYRUP 10GM/15ML (ENULOSE) 30ML UDC PO SCH ×2 (09:44→20:07)
[2017-02-12] MEDS: BISACODYL 10 MG SUPP (DULCOLAX) PR SCH ×2 (09:44→20:07)
--- NOTE | 2017-02-12 09:54 | Physical Therapy Daily Note ---
PT Daily Note-Current Subjective Pt in restroom upon arrival. Pt agrees to PT after combing and brushing teeth. Mental Status Patient Orientation: Person, Place Transfers Functional [place] Measure 0=Not Assessed/NA 4=Minimal Assistance 1=Total Assistance 5=Supervision or Setup 2=Maximal Assistance 6=Modified [place] 3=Moderate Assistance 7=Complete IndependenceIRFPAI Quality Coding Scale 6 Independent with activity with or without an assistive device 5 Patient requires set up or clean up by helper. Patient completes activity by themselves 4 Supervision or touching assist (CGA). [place] provide cues , steadying assist 3 The helper provides less than half the effort to complete the activity 2 The helper provides more than half the effort to complete the activity 1 Dependent. The helper does all the effort to complete an activity 7 Patient refused to complete or attempt activity 9 The patient did not perform the activity before the current illness or injury 88 Not attempted due to Medical conditions or safety concerns Scootin Sit to/from Stand: 5 Sit to Stand (QC): 5 Weight Bearing Right Lower Extremity: Right Full Weight Bearing Left Lower Extremity: Left Full Weight Bearing Gait Training Does the Patient Walk?: Yes Distance (FIM): 1=up to 49 ft Distance: 30' Walk 10 feet (QC): 5 Gait Level of Assist: 5 Gait Persons Needed: 1 Gait Assistive Device: FWW Pt has slow yumiko but is steady using FWW, no LOB. Wheelchair Training Does the Pt Use a Wheelchair?: No Treatments Pt wants to complete tasks in restroom before leaving for ambulation. Pt instead wants to discuss complaint of having RT after having PT & OT and was already tired. Pt does not want to have RT with that much walking again. Pt rests at EOB at end of tx with all needs met. Assessment Current Status: Fair Progress Pt gets easily preoccupied with other tasks instead of what PT asks pt to do. PT Short Term Goals Short Term Goals Time Frame: Feb 10, 2017 Transfers (B,C,W/C) (FIM): 6 Gait (FIM): 4 Gait Distance Comment: 200' Gait Level of Assist: 4 Gait Assistive Device: FWW PT Firer Watertender Goals Usp Goals PT Usp Goals Time Frame: Feb 24, 2017 Transfers (B,C,W/C) (FIM): 7 Sit to Lying (QC): 6 Lying-Sitting on Side/Bed(QC): 6 Sit to Stand (QC): 6 Rollin Roll Left to Right (QC): 6 Chair/Fcs-hh-Ihjxi Xfer(QC): 6 Car Transfer (QC): 4 (SBA) Does the Patient Walk: No and Walking Goal IS indicated Gait (FIM): 6 Gait distance (FIM): 3=150 ft Walk 10 feet (QC): 6 Walk 10ft-Uneven Surface(QC): 6 Walk 50ft with 2 Turns (QC): 6 Walk 150 ft (QC): 6 Gait Level of Assist: 6 Gait Assistive Device: FWW Stairs (FIM): 5 # of Steps: 12 1 Step (curb) (QC): 4 4 Steps (QC): 4 12 Steps (QC): 4 Stairs Level Of Assist: 5 Picking up an Object (QC): 4 PT Plan Problem List Problem List: Activity Tolerance, Safety, Gait Treatment/Plan Treatment Plan: Continue Plan of Care Treatment Plan: Bed Mobility, Education, Functional Activity Sheila, Functional Strength, Group Therapy, Gait, Safety, Therapeutic Exercise, Transfers Treatment Duration: Feb 24, 2017 Frequency: At least 5 of 7 days/Wk (IRF) Estimated Hrs Per Day: 1.5 hours per day Patient and/or Family Agrees t: Yes Safety Risks/Education Patient Education: Safety Issues Teaching Recipient: Patient Teaching Methods: Discussion Response to Teaching: Reinforcement Needed Time/GCodes Time In: 830 Time Out: 850 Total Billed Treatment Time: 20 Total Billed Treatment visit, FA (20m) CORAZON DE LA CRUZ PTA Feb 12, 2017 09:54
[2017-02-12] MEDS: ENOXAPARIN 40 MG/0.4 ML (LOVENOX) SYR SC SCH (14:00)
[2017-02-12 17:24] VITALS: BP 119/72
[2017-02-12] MEDS: ATORVASTATIN 40 MG (LIPITOR) TABLET PO SCH (20:07)
[2017-02-13 05:34] VITALS: BP 124/77
[2017-02-13] MEDS: SINEMET 25/100 (CARBIDOPA/LEVODOPA) TAB PO SCH ×3 (06:08→16:46)
[2017-02-13 07:38] VITALS: BP 108/70
[2017-02-13] MEDS: FAMOTIDINE 20 MG (PEPCID) TABLET PO SCH ×2 (07:38→20:36)
[2017-02-13] MEDS: lisINopril 10 MG (PRINIVIL) TAB PO SCH (07:39)
[2017-02-13] MEDS: FOLIC ACID 1 MG TAB PO SCH (07:39)
[2017-02-13] MEDS: DOCUSATE SODIUM 100 MG (COLACE) CAP PO SCH ×2 (07:39→20:35)
[2017-02-13] MEDS: ASPIRIN 81 MG CHEW (CHILDREN'S ASA) PO SCH (07:39)
[2017-02-13] MEDS: PHENAZOPYRIDINE 100 MG (PYRIDIUM) TABLET PO SCH ×2 (07:39→20:35)
[2017-02-13] MEDS: amLODIPine 5 MG (NORVASC) TAB PO SCH (07:39)
[2017-02-13] MEDS: LACTULOSE SYRUP 10GM/15ML (ENULOSE) 30ML UDC PO SCH ×2 (07:39→20:36)
[2017-02-13] MEDS: BISACODYL 10 MG SUPP (DULCOLAX) PR SCH ×2 (07:43→20:36)
[2017-02-13] MEDS: ENOXAPARIN 40 MG/0.4 ML (LOVENOX) SYR SC SCH (15:45)
[2017-02-13 18:45] VITALS: BP 116/68
[2017-02-13] MEDS: ATORVASTATIN 40 MG (LIPITOR) TABLET PO SCH (20:36)
[2017-02-14 05:22] VITALS: BP 128/68
[2017-02-14] MEDS: SINEMET 25/100 (CARBIDOPA/LEVODOPA) TAB PO SCH ×2 (05:22→12:54)
[2017-02-14] MEDS: FAMOTIDINE 20 MG (PEPCID) TABLET PO SCH (07:56)
[2017-02-14] MEDS: ASPIRIN 81 MG CHEW (CHILDREN'S ASA) PO SCH (07:56)
[2017-02-14] MEDS: PHENAZOPYRIDINE 100 MG (PYRIDIUM) TABLET PO SCH (07:56)
[2017-02-14] MEDS: FOLIC ACID 1 MG TAB PO SCH (07:56)
[2017-02-14] MEDS: METHOTREXATE 2.5 MG TAB PO SCH (07:57)
[2017-02-14] MEDS: DOCUSATE SODIUM 100 MG (COLACE) CAP PO SCH (07:57)
[2017-02-14] MEDS: LACTULOSE SYRUP 10GM/15ML (ENULOSE) 30ML UDC PO SCH (07:58)
[2017-02-14] MEDS: BISACODYL 10 MG SUPP (DULCOLAX) PR SCH (07:58)
[2017-02-14 08:31] VITALS: BP 130/62
[2017-02-14] MEDS: lisINopril 10 MG (PRINIVIL) TAB PO SCH (08:31)
[2017-02-14] MEDS: amLODIPine 5 MG (NORVASC) TAB PO SCH (08:31)
--- NOTE | 2017-02-14 08:33 | Progress Note (SOAP) ---
Subjective Time Seen by Provider: 08:30 Subjective/Events-last exam CVA. patient be discharged today. Parkinson disease. Patient states Sinemet is helping` Objective Exam Vital Signs Date Time Temp Pulse Resp B/P (MAP) Pulse Ox O2 Delivery O2 Flow Rate FiO2 02/14/17 05:22 97.0 75 17 128/68 97 Room Air 02/13/17 21:39 Room Air 02/13/17 21:00 Room Air 02/13/17 18:45 96.6 70 18 116/68 99 Room Air 02/13/17 09:52 Room Air Capillary Refill : General Appearance: No Apparent Distress, Thin HEENT: Normal ENT Inspection Neck: Normal Inspection Respiratory: Lungs Clear, No Accessory Muscle Use, No Respiratory Distress Cardiovascular: Regular Rate, Rhythm Assessment/Plan Assessment/Plan Assess & Plan/Chief Complaint CVA. Hypertension. Parkinson disease. Patient's blood pressure elevated put on lisinopril. . 02/07/17. CVA. Hypertension. Parkinson disease. Constipation. Patient feels better after having a bowel movement.. . 02/08/17. CVA. Hypertension. Parkinson Disease. Patient's answer doing better. Speech is improving. . 02/09/17. CVA. Hypertension. Parkinson disease better. Patient speech better.. . 02/10/17. CVA. Hypertension. Less signs of Parkinson's disease with medicine. Patient talking well. Patient improving. . 02/11/17. CVA. Hypertension. Parkinson disease. Patient communicating better. Tremors less. . 02/14/17. CVA. Parkinson disease. Hypertension history Clinical Quality Measures DVT/VTE Risk/Contraindication: Risk Factor Score Per Nursin RFS Level Per Nursing on Admit: 4+=Very High RODO ROCHA DO Feb 14, 2017 08:33
--- NOTE | 2017-02-14 09:59 | Physical Therapy Daily Note ---
PT Daily Note-Current Subjective Patient reports he is excited to go home today. Pain Numeric Pain Scale: 0-No Pain Location: No Pain Reported Mental Status Patient Orientation: Normal For Age Transfers Functional [place] Measure 0=Not Assessed/NA 4=Minimal Assistance 1=Total Assistance 5=Supervision or Setup 2=Maximal Assistance 6=Modified [place] 3=Moderate Assistance 7=Complete IndependenceIRFPAI Quality Coding Scale 6 Independent with activity with or without an assistive device 5 Patient requires set up or clean up by helper. Patient completes activity by themselves 4 Supervision or touching assist (CGA). [place] provide cues , steadying assist 3 The helper provides less than half the effort to complete the activity 2 The helper provides more than half the effort to complete the activity 1 Dependent. The helper does all the effort to complete an activity 7 Patient refused to complete or attempt activity 9 The patient did not perform the activity before the current illness or injury 88 Not attempted due to Medical conditions or safety concerns Transfers (B, C, W/C) (FIM): 6 Scootin Rollin Roll Left to Right (QC): 6 Supine to/from Sit: 7 Sit to/from Stand: 6 Sit to Lying (QC): 6 Sit to Stand (QC): 5 Chair/Aax-nf-Cmmdy Xfer(QC): 5 Bed to/from Chair: 6 Car Transfer (QC): 6 Weight Bearing Right Lower Extremity: Right Full Weight Bearing Left Lower Extremity: Left Full Weight Bearing Gait Training Does the Patient Walk?: Yes Gait (FIM): 6 Distance (FIM): 3=150 ft Distance: 150' x 2 Walk 10 feet (QC): 5 Walk 50 ft with 2 Turns(QC): 5 Walk 150 ft (QC): 5 Walking 10ft/uneven surface-QC: 5 Gait Level of Assist: 6 Gait Assistive Device: FWW slow, functional gait sequence Stair Training Stair Training: Handrails/: 2 handrails Stairs (FIM): 6 #of Steps: 12 1 Step (curb) (QC): 5 4 Steps (QC): 5 12 Steps (QC): 5 Stairs: Pattern: Reciprocal Level of Assist: 6 Balance Picking up an Object (QC): 6 Assessment Current Status: Excellent Progress PT Short Term Goals Short Term Goals Time Frame: Feb 10, 2017 Transfers (B,C,W/C) (FIM): 6 Gait (FIM): 4 Gait Distance Comment: 200' Gait Level of Assist: 4 Gait Assistive Device: FWW PT Family Service Aide Goals Detention Goals PT Family Service Aide Goals Time Frame: Feb 24, 2017 Transfers (B,C,W/C) (FIM): 7 Sit to Lying (QC): 6 (met 02/14/17) Lying-Sitting on Side/Bed(QC): 6 (met 02/14/17) Sit to Stand (QC): 6 (met 02/14/17) Rollin (met 02/14/17) Roll Left to Right (QC): 6 (met ) Chair/Dbj-pn-Uvzvp Xfer(QC): 6 Car Transfer (QC): 4 (SBA) Does the Patient Walk: No and Walking Goal IS indicated Gait (FIM): 6 (met 02/14/17) Gait distance (FIM): 3=150 ft Walk 10 feet (QC): 6 Walk 10ft-Uneven Surface(QC): 6 Walk 50ft with 2 Turns (QC): 6 Walk 150 ft (QC): 6 Gait Level of Assist: 6 (met 02/14/17) Gait Assistive Device: FWW Stairs (FIM): 5 (met 02/14/17) # of Steps: 12 (met 02/14/17) 1 Step (curb) (QC): 4 (met 01/2317) 4 Steps (QC): 4 (met 02/14/17) 12 Steps (QC): 4 (met 02/14/17) Stairs Level Of Assist: 5 (met 02/14/17) Picking up an Object (QC): 4 (met 02/14/17) PT Plan Treatment/Plan Treatment Plan: Discontinue PT Treatment Plan: Bed Mobility, Education, Functional Activity Sheila, Functional Strength, Group Therapy, Gait, Safety, Therapeutic Exercise, Transfers Treatment Duration: Feb 24, 2017 Frequency: At least 5 of 7 days/Wk (IRF) Estimated Hrs Per Day: 1.5 hours per day Patient and/or Family Agrees t: Yes Time/GCodes Time In: 800 Time Out: 815 Total Billed Treatment Time: 15 Total Billed Treatment 1 visit FA 15 min BHUMI MACIAS PT Feb 14, 2017 09:59
--- NOTE | 2017-02-14 10:36 | Speech Therapy Daily Note ---
Speech Daily Progress Note Subjective Date Seen by Provider: Feb 14, 2017 Time Seen by Provider: 09:20 The patient was seated at edge of bed upon entrance. The patient greeted the clinician appropriately and was agreeable to participation in voice therapy. Objective Adduction Exercises: Vocal Fold Adduction Exercises were continued and reviewed on this date to improve functional breath support, as well as, appropriate volume for communication. The patient continues to display high accuracy with exercises, following an initial direct modeling example by the clinician. With minimal cueing, five repetitions of each exercise were performed. Assessment Assessment Current Status: Excellent Progress Treatment Plan Continue Plan of Care Communication Comprehension: 5 Expression: 5 Social Cognition Social Interaction: 5 Problem Solvin Memory: 5 Speech Short Term Goals Short Term Goals Short Term Goals 1. The patient will recall and demonstrate three functional memory strategies for use at home with mild clinician verbal cueing. 2. The patient will recall three items from a recently presented article/text with 80% accuracy. Time Frame-STG: Two Weeks Speech Mixing Pan Tender Goals Mixing Pan Tender Goals 1. The patient will display improved cognitive linguistic skills for increased safety and function with ADL's in the least restrictive setting. Time Frame: Three Weeks Comprehension: 5 (MET) Expression: 5 (MET) Social Interaction: 5 (MET) Problem Solvin (MET) Memory: 4 (MET) Speech-Plan Treatment Plan Speech Therapy Treatment Plan: Continue Plan of Care Continue skilled speech pathology to target improved expressive communication. Treatment Duration: Feb 25, 2017 Frequency: Modified Program (IRF) (Four to five times per week.) Estimated Hrs Per Day: .5 hour per day Rehab Potential: Fair Safety Risks/Education Teaching Recipient: Patient Teaching Methods: Demonstration, Handout Response to Teaching: Return Demonstration Education Topics Provided: Adductor Fold Exercises Time Speech Therapy Time In: 09:20 Speech Therapy Time Out: 09:35 Total Billed Time: 15 Billed Treatment Time REBEKAH Branham ELIZABETH ST Feb 14, 2017 10:36
--- NOTE | 2017-02-14 10:55 | PM & R (SOAP) Progress Note ---
Subjective Time Seen by Provider: 10:45 Subjective/Events-last exam Patient all set for discahrge today Appreciate Dr Unger and Therapists notes Objective Exam Last Set of Vital Signs Vital Signs Date Time Temp Pulse Resp B/P (MAP) Pulse Ox O2 Delivery O2 Flow Rate FiO2 02/14/17 08:51 Room Air 02/14/17 08:31 73 130/62 02/14/17 05:22 97.0 17 97 02/12/17 07:58 21 Capillary Refill : I&O Intake and Output 02/15/17 00:00 Intake Total 625 ml Balance 625 ml Intake Oral 625 ml # Voids 5 General: Alert, Oriented X3, Cooperative, No Acute Distress HEENT: Atraumatic, PERRLA, EOMI, Mucous Memb Moist/[place] Neck: Supple, No JVD Lungs: Clear to Auscultation Heart: Regular Rate Abdomen: Normal Bowel Sounds, Soft, No Tenderness Extremities: No Edema Neuro: Other ( Tremors left hand) Assessment/Plan Assessment 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
--- NOTE | 2017-02-14 12:47 | Occupational Ther Daily Note ---
OT Current Status-Daily Note Subjective Pt was sitting EOB at beginning of tx. Pt agreed to take a shower for therapy. Appearance Alert, cooperative Mental Status/Objective Functional [place] Measure 0=Not Assessed/NA 4=Minimal Assistance 1=Total Assistance 5=Supervision or Setup 2=Maximal Assistance 6=Modified [place] 3=Moderate Assistance 7=Complete [place] ADL-Treatment Pt was given a choice of using his cane or walker and chose to use his walker. Pt was SBA for walking between locations. No LOB was observed. Pt requires more time than typical for all activities and with mild safety concerns. Functional [place] Measure 0=Not Assessed/NA 4=Minimal Assistance 1=Total Assistance 5=Supervision or Setup 2=Maximal Assistance 6=Modified [place] 3=Moderate Assistance 7=Complete IndependenceIRFPAI Quality Coding Scale 6 Independent with activity with or without an assistive device 5 Patient requires set up or clean up by helper. Patient completes activity by themselves 4 Supervision or touching assist (CGA). [place] provide cues , steadying assist 3 The helper provides less than half the effort to complete the activity 2 The helper provides more than half the effort to complete the activity 1 Dependent. The helper does all the effort to complete an activity 7 Patient refused to complete or attempt activity 9 The patient did not perform the activity before the current illness or injury 88 Not attempted due to Medical conditions or safety concerns Eating (FIM): 6 (Pt does not require dentures, any adaptive equipment, or assistance opening packages. Pt does require a longer than typical amount of time to eat meals. ) Eating (QC): 6 (Pt does not require assistance but does need extra time. ) Grooming (FIM): 6 (Pt brushes teeth and hair without assistance but does require a FWW for balance. FWW, accessible sink. Mild safety concerns) Oral Hygiene (QC): 6 Bathing (FIM): 6 (Pt completed bathing without assistance, bathing all 10 parts. Pt able to turn water on and off and retrieve towels from bar. Shower bench, hand held shower, grab bars. ) Shower/Bathe Self (QC): 6 Upper Body (FIM): 6 (Pt dons shirt with no assistance while standing at FWW. Got clean clothes out of closet, FWW for balance) Upper Body Dressing (QC): 6 Lower Body Dressing (FIM): 6 (Pt able to dress with no assistance while standing at FWW. Retrieved clean clothes from closet, FWW for balance. Pt donned shoes with no assistance while seated on the shower bench.) Lower Body Dressing (QC): 6 On/Off Footwear (QC): 6 Toileting (FIM): 6 (Pt able to manage clothing and hygiene with no assistance. FWW, grab bars, tall toilet. ) Toileting Hygiene (QC): 6 Toilet/Commode Transfer (FIM): 6 (Pt transfers on and off toilet with no assistance. FWW, grab bars, tall toilet. ) Toilet Transfer (QC): 6 Shower Transfer(FIM): 6 (Pt transfers on/off shower bench with no assistance. FWW, grab bars, shower bench. ) Pt returned to EOB from bathroom with FWW. Pt was very happy that he would be going home today. Pt was left sitting EOB at end of tx, with all needs met. Education OT Patient Education: Purpose of tx/functional activities, Safety issues, Use of adapted equipment Teaching Recipient: Patient Teaching Methods: Discussion Response to Teaching: Verbalize Understanding OT Short Term Goals Short Term Goals Time Frame: Feb 10, 2017 Transfers (B,C,W/C) (FIM): 6 Toilet/Commode Transfer(FIM): 5 Additional Short Term Goals: 2-Verbalize Understanding, 3-ImproveStrength/Sheila 1=Demonstrate adherence to instructed precautions during ADL tasks. 2=Patient will verbalize/demonstrate understanding of assistive devices/ modifications for ADL. 3=Patient will improve strength/tolerance for activity to enable patient to perform ADL's. OT Program Director Group Work Goals Program Director Group Work Goals Time Frame: Feb 25, 2017 Eating (FIM): 6 (met 02-14-17) Eating (QC): 6 (met 23-17) Groomin (met 02-14-17) Oral Hygiene (QC): 6 (met --17) Bathing(FIM): 6 (met 02-14-17) Shower/Bathe Self (QC): 6 (met 1023-17) Upper Body Dressing(FIM): 6 (met 1023-17) Upper Body Dressing (QC): 6 (met 23-17) Lower Body Dressing(FIM): 6 (met 02-14-17) Lower Body Dressing (QC): 6 (met 02-14-17) On/Off Footwear (QC): 6 (met 02-14-17) Toileting(FIM): 6 (met 02-14-17) Toileting Hygiene (QC): 6 (met 02-14-17) Toilet/Commode Transfer(FIM): 6 (met 02-14-17) Toilet/Commode Transfer (QC): 6 (met 02-14-17) Tub Transfer(FIM): 6 Shower Transfer(FIM): 6 (met 02-14-17) Comprehension(FIM): 5 (MET) Expression (FIM): 5 (MET) Social Interaction(FIM): 5 (MET) Problem Solving(FIM): 4 (MET) Memory(FIM): 4 (MET) Additional Goals: 2-Verbalize Understanding, 3-ImproveStrength/Sheila 1=Demonstrate adherence to instructed precautions during ADL tasks. 2=Patient will verbalize/demonstrate understanding of assistive devices/ modifications for ADL. 3=Patient will improve strength/tolerance for activity to enable patient to perform ADL's. 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 Plan of Care: ADL Retraining, Functional Mobility, Group Exercise/Act as Ind ( education, exercise, socialization, activity tolerance, funct activities), UE Funct Exercise/Act, UE Neuromus Re-Ed/Coord Treatment Duration: Feb 25, 2017 Frequency: At least 5 of 7 days/Wk (IRF) Estimated Hrs Per Day: 1.5 hours per day Agreement: Yes Rehab Potential: Fair Time/GCodes Start Time: 09:30 Stop Time: 10:25 Total Time Billed (hr/min): 55 Billed Treatment Time visit, 55 ADL SHIVAM NAVA OT Feb 14, 2017 12:47
--- NOTE | 2017-02-14 13:10 | Therapy Team Discharge Summary ---
Therapy Discharge Summary Discharge Recommendations Date of Discharge Therapy D/C Recommendations: Home w/ Family Support, Occupational Therapy Home Care Physical Therapy Patient to dismiss to home on this date with spouse and home health intervention. Patient required time to complete all functional tasks due to fatigue and deconditioned state. Upon initial evaluation, patient required minimal assistance for safety with all gross motor skills. Patient is currently safely at a modified independent F with all gross motor skills. PT and patient address functional goals and some were attained (refer to PT LTG). Patient will continue to make progress at home with home health PT and family intervention. Occupational Therapy Decreased Activ Tolerance, Impaired I ADL's, Impaired Self-Care Skills PT Pump Attendant Goals Custodial Goals PT Pump Attendant Goals Time Frame: Feb 24, 2017 Transfers (B,C,W/C) (FIM): 7 Roll Left to Right (QC): 6 (met ) Sit to Lying (QC): 6 (met 02/14/17) Lying-Sitting on Side/Bed(QC): 6 (met 02/14/17) Sit to Stand (QC): 6 (met 02/14/17) Chair/Tot-qu-Xxcvr Xfer(QC): 6 Car Transfer (QC): 4 (SBA) Does the Patient Walk: No and Walking Goal IS indicated Gait (FIM): 6 (met 02/14/17) Gait distance (FIM): 3=150 ft Walk 10 feet (QC): 6 Walk 10ft-Uneven Surface(QC): 6 Walk 50ft with 2 Turns (QC): 6 Walk 150 ft (QC): 6 Gait Level of Assist: 6 (met 02/14/17) Gait Assistive Device: FWW Stairs (FIM): 5 (met 02/14/17) # of Steps: 12 (met 02/14/17) 1 Step (curb) (QC): 4 (met 01/2317) 4 Steps (QC): 4 (met 02/14/17) 12 Steps (QC): 4 (met 02/14/17) Stairs Level Of Assist: 5 (met 02/14/17) Picking up an Object (QC): 4 (met 02/14/17) OT Custodial Goals Custodial Goals Time Frame: Feb 25, 2017 Eating (FIM): 6 Eating (QC): 6 Oral Hygiene (QC): 6 Grooming(FIM): 6 Bathing(FIM): 6 Shower/Bathe Self (QC): 6 Upper Body Dressing(FIM): 6 Upper Body Dressing (QC): 6 Lower Body Dressing(FIM): 6 Lower Body Dressing (QC): 6 On/Off Footwear (QC): 6 Toileting(FIM): 6 Toileting Hygiene (QC): 6 Toilet/Commode Transfer(FIM): 6 Toilet/Commode Transfer (QC): 6 Tub Transfer(FIM): 6 Shower Transfer(FIM): 6 Comprehension(FIM): 5 (MET) Expression (FIM): 5 (MET) Social Interaction(FIM): 5 (MET) Problem Solving(FIM): 4 (MET) Memory(FIM): 4 (MET) Additional Goals: 2-Verbalize Understanding, 3-ImproveStrength/Sheila 1=Demonstrate adherence to instructed precautions during ADL tasks. 2=Patient will verbalize/demonstrate understanding of assistive devices/ modifications for ADL. 3=Patient will improve strength/tolerance for activity to enable patient to perform ADL's. Speech Pump Attendant Goals Pump Attendant Goals 1. The patient will display improved cognitive linguistic skills for increased safety and function with ADL's in the least restrictive setting. Time Frame: Three Weeks Comprehension: 5 (MET) Expression: 5 (MET) Social Interaction: 5 (MET) Problem Solvin (MET) Memory: 4 (MET) BHUMI MACIAS PT Feb 14, 2017 13:10
--- NOTE | 2017-02-14 13:37 | Therapy Team Discharge Summary ---
Therapy Discharge Summary Discharge Recommendations Date of Discharge Therapy D/C Recommendations: Home w/ Family Support, Occupational Therapy Home Care Occupational Therapy Decreased Activ Tolerance, Impaired I ADL's, Impaired Self-Care Skills Speech-Language Pathology The patient was admitted to [facility] following a CVA. Upon admission , the patient displayed moderate hypofunctional aphonia, mild cognitive deficits , and mild expressive language impairments (most notably, word finding). Skilled speech pathology focused on adductor fold exercises, memory strategies, and functional safety problem solving. The patient met all goals initially placed by speech pathology. At this time, the patient will discharge home. Additional skilled speech pathology services are not warranted. PT Limo Driver Goals Limo Driver Goals PT Residential Goals Time Frame: Feb 24, 2017 Transfers (B,C,W/C) (FIM): 7 Roll Left to Right (QC): 6 (met ) Sit to Lying (QC): 6 (met 02/14/17) Lying-Sitting on Side/Bed(QC): 6 (met 02/14/17) Sit to Stand (QC): 6 (met 02/14/17) Chair/Dma-zl-Tirtu Xfer(QC): 6 Car Transfer (QC): 4 (SBA) Does the Patient Walk: No and Walking Goal IS indicated Gait (FIM): 6 (met 02/14/17) Gait distance (FIM): 3=150 ft Walk 10 feet (QC): 6 Walk 10ft-Uneven Surface(QC): 6 Walk 50ft with 2 Turns (QC): 6 Walk 150 ft (QC): 6 Gait Level of Assist: 6 (met 02/14/17) Gait Assistive Device: FWW Stairs (FIM): 5 (met 02/14/17) # of Steps: 12 (met 02/14/17) 1 Step (curb) (QC): 4 (met 01/2317) 4 Steps (QC): 4 (met 02/14/17) 12 Steps (QC): 4 (met 02/14/17) Stairs Level Of Assist: 5 (met 02/14/17) Picking up an Object (QC): 4 (met 02/14/17) OT Limo Driver Goals Limo Driver Goals Time Frame: Feb 25, 2017 Eating (FIM): 6 Eating (QC): 6 Oral Hygiene (QC): 6 Grooming(FIM): 6 Bathing(FIM): 6 Shower/Bathe Self (QC): 6 Upper Body Dressing(FIM): 6 Upper Body Dressing (QC): 6 Lower Body Dressing(FIM): 6 Lower Body Dressing (QC): 6 On/Off Footwear (QC): 6 Toileting(FIM): 6 Toileting Hygiene (QC): 6 Toilet/Commode Transfer(FIM): 6 Toilet/Commode Transfer (QC): 6 Tub Transfer(FIM): 6 Shower Transfer(FIM): 6 Comprehension(FIM): 5 (MET) Expression (FIM): 5 (MET) Social Interaction(FIM): 5 (MET) Problem Solving(FIM): 4 (MET) Memory(FIM): 4 (MET) Additional Goals: 2-Verbalize Understanding, 3-ImproveStrength/Sheila 1=Demonstrate adherence to instructed precautions during ADL tasks. 2=Patient will verbalize/demonstrate understanding of assistive devices/ modifications for ADL. 3=Patient will improve strength/tolerance for activity to enable patient to perform ADL's. Speech Residential Goals Limo Driver Goals 1. The patient will display improved cognitive linguistic skills for increased safety and function with ADL's in the least restrictive setting. Time Frame: Three Weeks Comprehension: 5 (MET) Expression: 5 (MET) Social Interaction: 5 (MET) Problem Solvin (MET) Memory: 4 (MET) TAI REAL Feb 14, 2017 13:37
[2017-02-14 14:09] VITALS: BP 120/74
[2017-02-14 14:29] VITALS: BP 120/74
--- NOTE | 2017-02-15 09:10 | Therapy Team Discharge Summary ---
Therapy Discharge Summary Discharge Recommendations Date of Discharge Feb 14, 2017 at 14:32 Therapy D/C Recommendations: Home w/ Family Support, Occupational Therapy Home Care Occupational Therapy Pt was seen for skilled OT to increase his independence in basic self care to allow him to safely return to his home to live with his , after CVA affecting cerebellum and Parkinsons. On admission he needed setup or supervision for all ADLs and all took extra time. By discharge he was modified independent with all ADLs but needed SBA when walking to and from ADLs, using FWW. other equipment used included tall toilet, grab bars, shower bench and hand held shower. Home health OT was recommended but declined by patient. See tx plan for goals met. DC OT. Decreased Activ Tolerance, Impaired I ADL's, Impaired Self-Care Skills PT Longterm Goals Enterprise Data Architect Goals PT Enterprise Data Architect Goals Time Frame: Feb 24, 2017 Transfers (B,C,W/C) (FIM): 7 Roll Left to Right (QC): 6 (met ) Sit to Lying (QC): 6 (met 02/14/17) Lying-Sitting on Side/Bed(QC): 6 (met 02/14/17) Sit to Stand (QC): 6 (met 02/14/17) Chair/Awf-zr-Yifsh Xfer(QC): 6 Car Transfer (QC): 4 (SBA) Does the Patient Walk: No and Walking Goal IS indicated Gait (FIM): 6 (met 02/14/17) Gait distance (FIM): 3=150 ft Walk 10 feet (QC): 6 Walk 10ft-Uneven Surface(QC): 6 Walk 50ft with 2 Turns (QC): 6 Walk 150 ft (QC): 6 Gait Level of Assist: 6 (met 02/14/17) Gait Assistive Device: FWW Stairs (FIM): 5 (met 02/14/17) # of Steps: 12 (met 02/14/17) 1 Step (curb) (QC): 4 (met 01/2317) 4 Steps (QC): 4 (met 02/14/17) 12 Steps (QC): 4 (met 02/14/17) Stairs Level Of Assist: 5 (met 02/14/17) Picking up an Object (QC): 4 (met 02/14/17) OT Longterm Goals Enterprise Data Architect Goals Time Frame: Feb 25, 2017 Eating (FIM): 6 (met 02-14-17) Eating (QC): 6 (met 02-14-17) Oral Hygiene (QC): 6 (met 02-14-17) Grooming(FIM): 6 (met 02-14-17) Bathing(FIM): 6 (met 02-14-17) Shower/Bathe Self (QC): 6 (met 02-14-17) Upper Body Dressing(FIM): 6 (met 02-14-17) Upper Body Dressing (QC): 6 (met 02-14-17) Lower Body Dressing(FIM): 6 (met 02-14-17) Lower Body Dressing (QC): 6 (met 02-14-17) On/Off Footwear (QC): 6 (met 02-14-17) Toileting(FIM): 6 (met 02-14-17) Toileting Hygiene (QC): 6 (met 02-14-17) Toilet/Commode Transfer(FIM): 6 (met 02-14-17) Toilet/Commode Transfer (QC): 6 (met 02-14-17) Tub Transfer(FIM): 6 Shower Transfer(FIM): 6 (met 02-14-17) Comprehension(FIM): 5 (MET) Expression (FIM): 5 (MET) Social Interaction(FIM): 5 (MET) Problem Solving(FIM): 4 (MET) Memory(FIM): 4 (MET) Additional Goals: 2-Verbalize Understanding, 3-ImproveStrength/Sheila 1=Demonstrate adherence to instructed precautions during ADL tasks. 2=Patient will verbalize/demonstrate understanding of assistive devices/ modifications for ADL. 3=Patient will improve strength/tolerance for activity to enable patient to perform ADL's. Speech Enterprise Data Architect Goals Longterm Goals 1. The patient will display improved cognitive linguistic skills for increased safety and function with ADL's in the least restrictive setting. Time Frame: Three Weeks Comprehension: 5 (MET) Expression: 5 (MET) Social Interaction: 5 (MET) Problem Solvin (MET) Memory: 4 (MET) SHIVAM NAVA OT Feb 15, 2017 09:10
== END 2017-02-14 14:32 | disposition home health service (06) | DRG 57 ==
PROVIDERS: ADMIT Family Medicine; ATTEND Physical Medicine & Rehabilitation
DX: I69.898 Other sequelae of other cerebrovascular disease (principal); R26.81 Unsteadiness on feet; G20 Parkinson's disease; R49.0 Dysphonia; R41.3 Other amnesia; M06.9 Rheumatoid arthritis, unspecified; I10 Essential (primary) hypertension; K21.9 Gastro-esophageal reflux disease without esophagitis; K59.09 Other constipation; M19.91 Primary osteoarthritis, unspecified site; M54.5 Low back pain; F32.9 Major depressive disorder, single episode, unspecified
CPT/HCPCS: 94760

== ENCOUNTER 2020-07-02 14:46 | Emergency (ER) | payer MEDICARE, OTHER ==
[~2020-07-02] VITALS: Ht 175.2 cm; Wt 54.4 kg
[~2020-07-02 14:46] MED LIST changes: +AMLO-250 PO; +ASPI-999 PO; +ATOR40TA PO; -CIPR500T4 PO; +CIPR500T5 PO; -CYAN500T2 PO; +CYAN500T8 PO; +DOCU100C37 PO; +FAMO20TA5 PO; +LACT20SO2 PO; +LISI10TA25 PO; +MAGN400O7 PO; -METH2.5T PO; +MTX2.5T PO; -OXYC-471 PO; +OXYC1TAB11 PO; +PHEN-826 PO
[2020-07-02 15:32] LABS: BASOPHILS % (AUTO) 1 % (0-10); EOSINOPHILS % (AUTO) 1 % (0-10); HEMATOCRIT 34 % (40-54); HEMOGLOBIN 11.2 g/dL (13.3-17.7); LYMPHOCYTES # (AUTO) 0.6 10^3/uL (1.0-4.0); LYMPHOCYTES % (AUTO) 15 % (12-44); MEAN CORPUSCULAR HEMOGLOBIN 32 pg (25-34); MEAN CORPUSCULAR HGB CONC 33 g/dL (32-36); MEAN CORPUSCULAR VOLUME 96 fL (80-99); MONOCYTES # (AUTO) 0.4 10^3/uL (0.0-1.0); MONOCYTES % (AUTO) 11 % (0-12); NEUTROPHILS # (AUTO) 2.8 10^3/uL (1.8-7.8); NEUTROPHILS % (AUTO) 72 % (42-75); PLATELET COUNT 154 10^3/uL (130-400); WHITE BLOOD COUNT 3.9 10^3/uL (4.3-11.0)
--- NOTE | 2020-07-02 15:43 | ED Cough/URI ---
General Chief Complaint: Respiratory Problems Stated Complaint: COVID + Nursing Triage Note: Pt to ED in wheelchair. Pt reports going to Dr. Dinero's office with today. ended up testing positive for COVID so pt was tested as well. Pt was positive. Pt c/o SOB and intermittent cough. Pt reports, "I have not been feeling up to par in some time." Sepsis Screen: No Definite Risk Source: patient Exam Limitations: no limitations History of Present Illness Date Seen by Provider: Jul 02, 2020 Time Seen by Provider: 14:59 Initial Comments The patient accompanies his from Dr. Dinero's office where they discovered both of them were positive for COVID-19. His was there for an appointment and he was tugged along. He did not have any symptoms. He denies shortness of air cough fever chills nausea vomiting diarrhea or known sick contacts. They have not had the vaccine for COVID-19. He is not a smoker nor does have any history of lung disease. He does have moderately advanced Parkinson's. Allergies and Home Medications Allergies Coded Allergies: No Known Drug Allergies (Unverified , 01/21/17) Home Medications Amlodipine Besylate 5 Mg Tablet, 5 MG PO DAILY Prescribed by: JASVIR DUMONT on 02/11/17 115 Ascorbate Calcium 500 Mg Tablet, 500 MG PO DAILY, (Reported) Aspirin 81 Mg Tab.chew, 81 MG PO DAILY Prescribed by: JASVIR DUMONT on 02/11/17 115 Atorvastatin Calcium 40 Mg Tablet, 40 MG PO HS Prescribed by: JASVIR DUMONT on 02/11/17 115 Carbidopa/Levodopa 1 Each Tablet, 1 TAB PO TID, (Reported) HAS NOT YET STARTED Cholecalciferol (Vitamin D3) 1,000 Unit Capsule, 1,000 UNIT PO DAILY, (Reported) Cyanocobalamin (Vitamin B-12) 500 Mcg Tablet, 500 MCG PO DAILY, (Reported) Docusate Sodium 100 Mg Capsule, 100 MG PO BID Prescribed by: JASVIR DUMONT on 02/11/171155 Famotidine 20 Mg Tablet, 20 MG PO BID Prescribed by: JASVIR DUMONT on 02/11/17 115 Fluticasone Propionate 9.9 Ml [place].susp, 1 SPRAY NS DAILY, (Reported) Folic Acid 0.8 Mg Capsule, 1.6 MG PO DAILY, (Reported) TAKES 2 (0.8 MG) CAPSULES Lactulose 20 Gm/30 Ml Solution, 20 GM PO BID Prescribed by: JASVIR DUMONT on 02/11/17 115 Lisinopril 10 Mg Tablet, 10 MG PO DAILY Prescribed by: JASVIR DUMONT on 02/11/17 115 Magnesium 250 Mg Tablet, 250 MG PO BID, (Reported) Magnesium Hydroxide 400 Mg/5 Ml Oral.susp, 30 ML PO DAILY PRN for CONSTIPATION- 7TH LINE Prescribed by: JASVIR DUMONT on 02/11/17 115 Methotrexate Tablet 2.5 Mg Tablet, 7.5 MG PO Mo, (Reported) Multivitamin 1 Each Tablet, 1 TAB PO DAILY, (Reported) Bradley-3/Dha/Epa/Fish Oil 1 Each Capsule, 1,000 MG PO BID, (Reported) Ondansetron 4 Mg Tab.rapdis, 4 MG PO Q6H PRN for NAUSEA/VOMITING Prescribed by: JP FOY on 07/02/20 154 Phenazopyridine HCl 100 Mg Tablet, 200 MG PO BID Prescribed by: JASVIR DUMONT on 02/11/17 115 Vitamin E 400 Unit Capsule, 400 UNIT PO DAILY, (Reported) Patient Home Medication List Home Medication List Reviewed: Yes Review of Systems Review of Systems Constitutional: No chills, No fever EENTM: No ear discharge, No ear pain Respiratory: No cough, No short of breath Cardiovascular: No Hx of Intervention, No palpitations Gastrointestinal: No abdominal pain, No constipation, No diarrhea Genitourinary: No discharge, No dysuria Musculoskeletal: No back pain, No joint pain Skin: No pruritus, No rash Psychiatric/Neurological: Denies Headache, Denies Numbness All Other Systems Reviewed Negative Unless Noted: Yes Past Auvpmio-Kxinxl-Bxslbm Hx Patient Social History Alcohol Use: Denies Use 2nd Hand Smoke Exposure: No Recent Infectious Disease Expo: Yes (COVID + today) Recent Hopitalizations: No Immunizations Up To Date Tetanus Booster (TDap): Unknown Date of Influenza Vaccine: Feb 01, 2017 Seasonal Allergies Seasonal Allergies: Yes Past Medical History Surgeries: Yes (RIGHT CATARACTS, LT INGUINAL HERNIA, TURP) Eye Surgery, Tonsillectomy, Transurethral Resection Respiratory: No COPD Cardiac: Yes Hypertension Neurological: Yes (SYMPTOMS OF PARKINSON'S-tremors to right hand) Parkinson's Disease Reproductive Disorders: No Sexually Transmitted Disease: No HIV/AIDS: No Genitourinary: Yes (TURP on 01/25/17 - Dr. Siegel) Prostate Problems, Bladder Infection Gastrointestinal: Yes Gastroesophageal Reflux, Chronic Constipation Musculoskeletal: Yes Arthritis, Rheumatoid Arthritis, Chronic Back Pain Endocrine: No HEENT: Yes Cataract Loss of Vision: Bilateral Hearing Impairment: Denies Cancer: No Psychosocial: Yes (per ) Depression Integumentary: Yes (HX OF "CONCRETE POISON" ON HANDS) Blood Disorders: No Adverse Reaction/Blood Tranf: No Family Medical History Arthritis 19 FATHER 19 MOTHER Completed stroke 19 FATHER G8 BROTHER FH: throat cancer 19 FATHER FHx: heart disease G8 BROTHER Hypertension G8 BROTHER Thyroid disease 19 MOTHER Tuberculosis paternal grandfather No Pertinent Family Hx Physical Exam Vital Signs - First Documented 07/02/20 14:59 Temp 35.6 Pulse 69 Resp 20 B/P (MAP) 121/68 (85) Pulse Ox 99 O2 Delivery Room Air Capillary Refill : Less Than 3 Seconds Height: 5'9.00" Weight: 147lbs. 0.0oz. 66.851534xm; 17.00 BMI Method:Stated General Appearance: WD/WN, no apparent distress Eyes: Bilateral Eye Normal Inspection, Bilateral Eye PERRL, Bilateral Eye EOMI HEENT: PERRL/EOMI, pharynx normal Neck: full range of motion, normal inspection Respiratory: lungs clear, normal breath sounds, no respiratory distress, no accessory muscle use Cardiovascular: normal peripheral pulses, regular rate, rhythm Neurologic/Psychiatric: alert, oriented x 3, other (Flat affect) Skin: normal color, warm/dry Progress/Results/Core Measures Suspected Sepsis Recent Fever Within 48 Hours: No Infection Criteria Present: None New/Unexplained Altered Menta: No Sepsis Screen: No Definite Risk SIRS Temperature: Pulse: 69 Respiratory Rate: 20 Laboratory Tests 07/02/20 15:18: White Blood Count 3.9L Blood Pressure 121 /68 Mean: 85 Laboratory Tests 07/02/20 15:18: Creatinine 1.06, Platelet Count 154, Total Bilirubin 0.8 Results/Orders Lab Results Laboratory Tests Test 07/02/20 15:18 Range/Units White Blood Count 3.9 L 4.3-11.0 10^3/uL Red Blood Count 3.56 L 4.30-5.52 10^6/uL Hemoglobin 11.2 L 13.3-17.7 g/dL Hematocrit 34 L 40-54 % Mean Corpuscular Volume 96 80-99 fL Mean Corpuscular Hemoglobin 32 25-34 pg Mean Corpuscular Hemoglobin Concent 33 32-36 g/dL Red Cell Distribution Width 13.4 10.0-14.5 % Platelet Count 154 130-400 10^3/uL Mean Platelet Volume 10.0 9.0-12.2 fL Immature Granulocyte % (Auto) 1 % Neutrophils (%) (Auto) 72 42-75 % Lymphocytes (%) (Auto) 15 12-44 % Monocytes (%) (Auto) 11 0-12 % Eosinophils (%) (Auto) 1 0-10 % Basophils (%) (Auto) 1 0-10 % Neutrophils # (Auto) 2.8 1.8-7.8 10^3/uL Lymphocytes # (Auto) 0.6 L 1.0-4.0 10^3/uL Monocytes # (Auto) 0.4 0.0-1.0 10^3/uL Eosinophils # (Auto) 0.0 0.0-0.3 10^3/uL Basophils # (Auto) 0.0 0.0-0.1 10^3/uL Immature Granulocyte # (Auto) 0.0 0.0-0.1 10^3/uL Sodium Level 133 L 135-145 MMOL/L Potassium Level 4.7 3.6-5.0 MMOL/L Chloride Level 98 98-107 MMOL/L Carbon Dioxide Level 25 21-32 MMOL/L Anion Gap 10 5-14 MMOL/L Blood Urea Nitrogen 24 H 7-18 MG/DL Creatinine 1.06 0.60-1.30 MG/DL Estimat Glomerular Filtration Rate > 60 BUN/Creatinine Ratio 23 Glucose Level 93 70-105 MG/DL Calcium Level 9.4 8.5-10.1 MG/DL Corrected Calcium 9.6 8.5-10.1 MG/DL Total Bilirubin 0.8 0.1-1.0 MG/DL Aspartate Amino Transf (AST/SGOT) 85 H 5-34 U/L Alanine Aminotransferase (ALT/SGPT) 16 0-55 U/L Alkaline Phosphatase 722 H 40-136 U/L Total Protein 7.3 6.4-8.2 GM/DL Albumin 3.8 3.2-4.5 GM/DL My Orders Orders - DANII,JP J Cbc With Automated Diff (07/02/20 15:25) Comprehensive Metabolic Panel (07/02/20 15:25) Chest 1 View, Ap/Pa Only (07/02/20 15:25) Covid-19 External Lab Results (07/02/20 15:25) Vital Signs/I&O 07/02/20 07/02/20 14:59 16:50 Temp 35.6 35.6 Pulse 69 61 Resp 20 20 B/P (MAP) 121/68 (85) 115/69 (85) Pulse Ox 99 100 O2 Delivery Room Air Room Air Capillary Refill : Less Than 3 Seconds Blood Pressure Mean: 85 Progress Note : Time: 15:41 Progress Note Asymptomatic. Positive for Covid by association with his who is positive for Covid. Because of his advanced age and comorbidities he should qualify for Bamlanivimab. Explained to them this is an experimental drug use with an emergency use authorization from FDA and it could give some significant benefit in terms of keeping them out of the hospital. He consents to the medication. He says he does have occasional cough with some clear sputum in the morning. Diagnostic Imaging Diagonstic Imaging: Xray Plain Films/CT/US/NM/MRI: chest Comments NAME: OLY ROSADO [facility] REC#: [id number] PT STATUS: REG ER : 1940 PHYSICIAN: JP FOY MD ADMIT DATE: 07/02/20/ER Draft Date of Exam:07/02/20 CHEST 1 VIEW, AP/PA ONLY HISTORY: Covid positive. COMPARISON: 02/01/2017 TECHNIQUE: Frontal view of the chest. FINDINGS: Lung volumes are large. No focal consolidation is seen. There is no pleural effusion or pneumothorax. Mild cardiomegaly appears stable. IMPRESSION: Large lung volumes with no focal consolidation seen. Dictated on workstation # [id number] Dict: 07/02/20 1547 Trans: 07/02/20 1549 [facility] [id number] Interpreted by: TOAN NICHOLSON MD Electronically signed by: Reviewed: Reviewed by Me Departure Communication (PCP) Spoke to Dr. Dinero and communicated our findings and recommendations. Impression Primary Impression: COVID-19 Disposition: 01 HOME, SELF-CARE Condition: Stable Departure-Patient Inst. Decision time for Depature: 15:44 Referrals: AMELIA DINERO DO (PCP/Family) Primary Care Physician Patient Instructions: Coronavirus Disease 2019 (COVID-19) (DC) Add. Discharge Instructions: Proceed from the ER to go get your infusion of Bamlinivimab. Obtain a pulse oximeter and if your oxygen sats consistently stay below 90% and you need to return to the ER for a checkup. Stay in touch with your primary care provider over phone for further questions. If you develop nausea you can use ondansetron 1 tablet every 6 hours as necessary under the tongue. Tylenol and ibuprofen as necessary for body aches and fever. Return to the ER if you are developing severe chest pain, shortness of air or dehydration. All discharge instructions reviewed with patient and/or family. Voiced understanding. You can come off quarantine after 10 days, 07/12/2020. You also need to be symptoms free for 72 hours without any medicines to mask your symptoms such as Tylenol, ibuprofen or Zofran. Scripts Ondansetron (Ondansetron Odt) 4 Mg Tab.rapdis 4 MG PO Q6H PRN for NAUSEA/VOMITING, #8 TAB 0 Refills Prov: JP FOY 07/02/20 JP FOY Jul 02, 2020 15:43
[2020-07-02] MEDS ORDERED: ONDA4TAB11 PO (15:46)
[2020-07-02 15:47] LABS: ALBUMIN 3.8 GM/DL (3.2-4.5); CHLORIDE 98 MMOL/L (98-107); POTASSIUM 4.7 MMOL/L (3.6-5.0); SODIUM 133 MMOL/L (135-145)
[2020-07-02 15:48] LABS: CALCIUM 9.4 MG/DL (8.5-10.1)
[2020-07-02 15:49] LABS: GLUCOSE 93 MG/DL (70-105); TOTAL PROTEIN 7.3 GM/DL (6.4-8.2)
[2020-07-02 15:50] LABS: CARBON DIOXIDE 25 MMOL/L (21-32)
--- NOTE | 2020-07-02 15:50 | Diagnostic Imaging Report ---
HISTORY: Covid positive. COMPARISON: 02/01/2017 TECHNIQUE: Frontal view of the chest. FINDINGS: Lung volumes are large. No focal consolidation is seen. There is no pleural effusion or pneumothorax. Mild cardiomegaly appears stable. IMPRESSION: Large lung volumes with no focal consolidation seen. Dictated by: Dictated on workstation # [id number]
[2020-07-02 15:51] LABS: BILIRUBIN,TOTAL 0.8 MG/DL (0.1-1.0)
[2020-07-02 15:53] LABS: ALKALINE PHOSPHATASE 722 U/L (40-136); CREATININE SERUM 1.06 MG/DL (0.60-1.30); GFR ESTIMATED > 60
[2020-07-02 15:54] LABS: BUN/CREATININE RATIO 23
[2020-07-02 15:56] LABS: ALANINE AMINOTRANSFERASE 16 U/L (0-55)
[2020-07-02] MEDS ORDERED: EPINEPHrine INJECTION 1 MG/ML AMP IM PRN (16:15)
[2020-07-02] MEDS ORDERED: diphenhydrAMINE 50 MG/ML INJ (BENADRYL) IV PRN (16:15)
[2020-07-02] MEDS ORDERED: BAMLANIVIMAB (NON FORM) 700 MG in NS (IVPB) 100 ML IV ONE (16:15)
[2020-07-02 16:50] VITALS: BP 115/69
== END 2020-07-02 16:50 | disposition home or self-care (01) ==
LOC: EDUNIT# 14:46 → ER 14:47
DX: U07.1 COVID-19 (principal); K21.9 Gastro-esophageal reflux disease without esophagitis; I10 Essential (primary) hypertension; G20 Parkinson's disease; Z82.61 Family history of arthritis; Z82.49 Family history of ischemic heart disease and other diseases of the circulatory system; Z80.2 Family history of malignant neoplasm of other respiratory and intrathoracic organs; Z79.82 Long term (current) use of aspirin
CPT/HCPCS: 36415; 71045; 80053; 85025

== ENCOUNTER 2020-07-02 16:08 | Outpatient (CLI) | payer MEDICARE, OTHER ==
[~2020-07-02 16:08] MED LIST changes: +ONDA4TAB11 PO
[2020-07-02] MEDS ORDERED: EPINEPHrine INJECTION 1 MG/ML AMP IM PRN (16:45)
[2020-07-02] MEDS ORDERED: BAMLANIVIMAB (NON FORM) 700 MG in NS (IVPB) 100 ML IV ONE (16:45)
[2020-07-02] MEDS ORDERED: diphenhydrAMINE 50 MG/ML INJ (BENADRYL) IV PRN (16:45)
[2020-07-02 16:50] VITALS: BP 115/69
[2020-07-02 17:44] VITALS: BP 123/67
== END 2020-07-02 18:39 | disposition home or self-care (01) ==
LOC: INFUSION 16:08
PROVIDERS: ATTEND Emergency Medicine
DX: Z23 Encounter for immunization (principal); U07.1 COVID-19